=== PATIENT | male | born 1960 | race Caucasian/White ===

== ENCOUNTER 2024-06-22 17:01 | Inpatient (IN) | payer OTHER, SELFPAY ==
[2024-06-22] VITALS (9 sets, daily range): BP systolic 138–168; BP diastolic 70–120; BMI 31.1
--- NOTE | 2024-06-22 15:23 | HPS.HSE ---
Addendum entered and electronically signed by Santy Naylor MD 06/23/24 14:07:
See my update note.
Plavix washout,
Surgery Saturday with me
CABG x 4 + LAUREN Clip
Assess for radial use
Original Note:
Family Physician
<Lillian Cobb PA-C - Last Filed: 06/22/24 15:58>
-
Family Physician: NOT KNOW UNKNOWN - PT DOES
<RITA Edwards - Last Filed: 06/22/24 18:16>
-
Family Physician: Dr. Laura Bernal
Chief Complaint
<Lillian Cobb PA-C - Last Filed: 06/22/24 15:58>
-
New onset of left-sided chest pain/discomfort at rest, associated dyspnea on exertion, ruled in for NSTEMI
History of Present Illness
Of note patient's car dumper operator helper is Dr. Cooper Jiang [facility].
Patient is a 64-year-old male with past medical history significant for: Obstructive coronary artery disease complicated by myocardial infarction (1998) status post PCI with stent to the LAD, PCI with stent to the RCA in 1999, PCI with stent to the
OM in 2002, and PCI with FLAKO to the LAD/diagonal in 2018.
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
alcohol abuse, prior illicit street drug abuse (nasal crack cocaine, nasal meth, nasal speed), and history of cervical and lumbar laminectomy.
Patient began experiencing atypical left-sided chest pain at rest on , 06/18/2024 with associated dyspnea upon exertion. Chest pain resolved spontaneously however reoccurred over the weekend prompting the patient to seek medical care at [facility]'s emergency department. EKG upon presentation to the emergency department revealed sinus rhythm with first-degree AV block (75 bpm). Lab work revealed high-sensitivity troponins of 204 followed by 247 ruling the patient in for a
non-ST elevated myocardial infarction.
The patient was admitted and started on ACS protocol with heparin drip as well as a nitroglycerin drip. He was given aspirin as well as Plavix. Also of note, the patient takes Plavix chronically as an outpatient for history of drug-eluting stents.
The patient underwent subsequent cardiac catheterization at [facility] revealing multivessel coronary artery disease. Patient was transferred to [facility] for further evaluation, workup, and surgical intervention.
<RITA Edwards - Last Filed: 06/22/24 18:16>
History of Present Illness
Of note patient's car dumper operator helper is Dr. Cooper Jiang [facility].
Patient is a 64-year-old male with past medical history significant for: Obstructive coronary artery disease complicated by myocardial infarction (1998) status post PCI with stent to the LAD, PCI with stent to the RCA in 1999, PCI with stent to the
OM in 2002, and PCI with FLAKO to the LAD/diagonal in 2018.
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
alcohol abuse, prior illicit street drug abuse (methamphetamines), and history of cervical and lumbar laminectomy.
Patient began experiencing atypical left-sided chest pain at rest on , 06/18/2024 with associated dyspnea upon exertion. Chest pain resolved spontaneously however reoccurred over the weekend prompting the patient to seek medical care at [facility]'s emergency department. EKG upon presentation to the emergency department revealed sinus rhythm with first-degree AV block (75 bpm). Lab work revealed high-sensitivity troponins of 204 followed by 247 ruling the patient in for a
non-ST elevated myocardial infarction.
The patient was admitted and started on ACS protocol with heparin drip as well as a nitroglycerin drip. He was given aspirin as well as Plavix. Also of note, the patient takes Plavix chronically as an outpatient for history of drug-eluting stents.
The patient underwent subsequent cardiac catheterization at [facility] revealing multivessel coronary artery disease. Patient was transferred to [facility] for further evaluation, workup, and surgical intervention.
Medical History
<Lillian Cobb PA-C - Last Filed: 06/22/24 15:58>
Past Medical History
Past Medical History: Reports Other
Additional Past Medical History:
CAD s/p CA 1998
PCI w/ stent to LAD 1998
PCI with stent to RCA 1999
PCI with stent to OM 2002
PCI with FLAKO to LAD/Diag 2017
HTN/HLD
NIDDMII on metformin
Depression
Anxiety
BOWEN
Carcinoid tumor of the left lung s/p left lower lobectomy (benign tumor)
Former cigarette smoker
Prior alcohol abuse
Prior illicit street drug abuse (nasal crack cocaine, nasal mask, nasal speed)
History of cervical and lumbar laminectomy
Past Surgical History: Reports Other
Additional Past Surgical History:
Multiple cardiac catheterization with PCI and FLAKO as outlined above (1998, 1999, 2002, 2018)
Cervical and lumbar laminectomy with fusion
Left lower lobectomy (benign tumor)
Social History
Tobacco: Former Smoker (Quit smoking cigarettes 28 years ago)
Alcohol: Former (Quit abusing alcohol 12 years ago)
Drug: Former User ( Quit abusing street drugs 12 years ago (nasal crack cocaine, nasal mask, nasal speed))
Family History
Family History: Early CAD and CAD (Patient's father required surgical revascularization with CABG, patient's younger brother from fatal CA)
Allergies / Home Medications
Allergies reflects when Allergies were last updated in [facility].
Home Medications with original date entered in [facility]
Allergy/Medication List:
No known drug allergies
<RITA Edwards - Last Filed: 06/22/24 18:16>
Social History
Personal:
Living: With Family
Allergies / Home Medications
Allergies reflects when Allergies were last updated in [facility].
Home Medications with original date entered in [facility]
Cymbalta 60 mg daily
Carvedilol 6.25 mg every 12 hours
Pantoprazole 40 mg daily
Diltiazem HCl 300 mg daily
Clonazepam 1 mg 3 tablets daily
Metformin 500 mg twice daily
Clopidogrel 75 mg daily
Aspirin 81 mg
Gabapentin 100 mg nightly
Atorvastatin 80 mg daily
Losartan 100 mg daily
Zetia 10 mg daily
Allergy/Medication List:
No known drug allergies
Active Medications
Acetaminophen (Acetaminophen 325 Mg Tablet) 650 mg PO Q4HPRN PRN
PRN Reason: mild pain/CHAMBERLAIN/temp> 100.4F
Stop: 07/20/24 14:34
Aspirin (Aspirin 81 Mg Chewable Tablet) 81 mg PO DAILY ALEJANDRA
Stop: 07/21/24 07:59
Atorvastatin Calcium (Atorvastatin (Lipitor) 80 Mg Tablet) 80 mg PO QPM ALEJANDRA
Stop: 07/21/24 17:59
Bisacodyl (Bisacodyl 10 Mg Rectal Suppository) 10 mg RECTAL [id number] PRN
PRN Reason: constipation
Stop: 07/20/24 14:34
Carvedilol (Carvedilol 6.25 Mg Tablet) 6.25 mg PO BID ALEJANDRA
Stop: 07/21/24 07:59
Clonazepam (Clonazepam 1 Mg Tablet) 3 mg PO DAILY ALEJANDRA
Stop: 07/21/24 07:59
Dextrose (Dextrose 50% (0.5 Grams/Ml) 50 Ml Syringe) 12.5 grams IV [id number] PRN; Protocol
PRN Reason: hypoglycemia
Stop: 07/20/24 17:50
Duloxetine HCl (Duloxetine Delayed Release 60 Mg Capsule) 60 mg PO DAILY ALEJANDRA
Stop: 07/21/24 07:59
Ezetimibe (Ezetimibe (Zetia) 10 Mg Tablet) 10 mg PO DAILY ALEJANDRA
Stop: 07/21/24 07:59
Gabapentin (Gabapentin 100 Mg Capsule) 100 mg PO HS ALEJANDRA
Stop: 07/20/24 21:59
Glucagon (Glucagon 1 Mg Vial) 1 mg IM PRN PRN; Protocol
PRN Reason: hypoglycemia
Stop: 07/20/24 17:50
Nitroglycerin/Dextrose (Nitroglycerin Premix) 100 mg in 250 mls @ 0 mls/hr IV PER PROTOCOL ALEJANDRA; Protocol
Heparin Sodium (Heparin 33448 Units/250 Ml) 25,000 units in 250 mls @ 0 mls/hr IV PER PROTOCOL ALEJANDRA; Protocol
Insulin Aspart (Insulin Aspart Moderate Resistance 300 Units/3 Ml Pen.Injctr) 0 units SC AC ALEJANDRA; Protocol
Stop: 07/21/24 07:29
Losartan Potassium (Losartan 100 Mg Tablet) 100 mg PO DAILY ALEJANDRA
Stop: 07/21/24 07:59
Metformin HCl (Metformin 500 Mg Regular Release Tablet) 500 mg PO BID@0800,1700 ALEJANDRA
Stop: 07/21/24 07:59
Multivitamins Therapeutic (Multivitamin Tablet) 1 tablet PO DAILY ALEJANDRA
Stop: 07/21/24 07:59
Ondansetron HCl (Ondansetron 4 Mg/2 Ml Vial) 4 mg IV Q6HPRN PRN
PRN Reason: nausea and vomiting
Stop: 07/20/24 14:34
Pantoprazole Sodium (Pantoprazole 40 Mg Delayed Release Tablet) 40 mg PO DAILY ALEJANDRA
Stop: 07/21/24 07:59
Polyethylene Glycol (Polyethylene Glycol Powder 17 Grams Packet) 17 grams PO DAILYPRN PRN
PRN Reason: constipation
Stop: 07/20/24 14:34
Senna/Docusate Sodium (Docusate W/Senna (Ann-Colace) Tablet) 1 tablet PO BIDPRN PRN
PRN Reason: constipation
Stop: 07/20/24 14:34
Sodium Chloride (Sodium Chloride 0.9% (Flush) Syringe) 0 flush IV PER PROTOCOL ALEJANDRA
Stop: 07/20/24 17:59
Review of Systems
<RITA Edwards - Last Filed: 06/22/24 18:16>
-
History Source: Patient
A 12 point ROS was completed and negative except as noted: Yes
Cardiac: Reports Chest Pain
Physical Exam
<RITA Edwards - Last Filed: 06/22/24 18:16>
Physical Exam
General: Well Developed, Well Nourished, No Apparent Distress and Obese
HEENT: NormoCephalic
Respiratory: Clear
Cardiac: S1/S2 and Regular Rhythm
Breast: N/A
GI: Soft
Musculoskeletal: No Edema and Normal Gait & Station
Skin: Warm
Neuro: AO x 3
Hematologic/Lymphatic: No Lymphadenopathy
Psych: Calm and Anxious
Laboratory Results
<RITA Edwards - Last Filed: 06/22/24 18:16>
-
labs are pending
Impression/Plan
<Lillian Cobb PA-C - Last Filed: 06/22/24 15:58>
-
IMPRESSION:
64-year-old male with PMH of:
CAD s/p CA 1998
PCI w/ stent to LAD 1998
PCI with stent to RCA 1999
PCI with stent to OM 2002
PCI with FLAKO to LAD/Diag 2017
HTN/HLD
NIDDMII on metformin
Depression
Anxiety
BOWEN
Carcinoid tumor of the left lung s/p left lower lobectomy (benign tumor)
Former cigarette smoker
Prior alcohol abuse
Prior illicit street drug abuse (nasal crack cocaine, nasal mask, nasal speed)
History of cervical and lumbar laminectomy
Now with newly diagnosed:
Unstable angina
NSTEMI (BNP 29, peak high-sensitivity troponin 247)
Chronic Plavix use
Worsening/progressing obstructive coronary artery disease status post multiple PCI's with FLAKO
PLAN:
Patient was transferred to [facility] and will be admitted under the cardiothoracic surgery service.
Records will be reviewed and discussed with attending physician.
Patient will need to undergo Plavix washout.
Routine cardiothoracic preoperative workup will be initiated.
Further details regarding patient's course will be determined after attending physicians full evaluation.
<RITA Edwards - Last Filed: 06/22/24 18:16>
-
IMPRESSION:
64-year-old male with PMH of:
CAD s/p CA 1998
PCI w/ stent to LAD 1998
PCI with stent to RCA 1999
PCI with stent to OM 2002
PCI with FLAKO to LAD/Diag 2017
HTN/HLD
NIDDMII on metformin
Depression
Anxiety
BOWEN
Carcinoid tumor of the left lung s/p left lower lobectomy (benign tumor)
Former cigarette smoker
Prior alcohol abuse
Prior illicit street drug abuse (nasal crack cocaine, nasal mask, nasal speed)
History of cervical and lumbar laminectomy
Now with newly diagnosed:
Unstable angina
NSTEMI (BNP 29, peak high-sensitivity troponin 247)
Chronic Plavix use
Worsening/progressing obstructive coronary artery disease status post multiple PCI's with FLAKO
PLAN:
Patient was transferred to [facility] and will be admitted under the cardiothoracic surgery service.
Records will be reviewed and discussed with attending physician.
Patient will need to undergo Plavix washout (last dose 06/22)
Routine cardiothoracic preoperative workup will be initiated.
Cardiology consult
will start heparin gtt when TR band is off
Further details regarding patient's course will be determined after attending physicians full evaluation.
[2024-06-22] MEDS: COREG 6.25 MG PO (18:12)
[2024-06-22 18:28] LABS: Glucose - Point of Care 117 mg/dl (70-99)
[2024-06-22 18:35] LABS: % Basophils 0.5 % (0-2); % Eosinophils 0.6 % (0-6); % Immature Granulocytes 0.3 % (0-0.5); % Monocytes 9.3 % (1.7-9.3); % Neutrophils 76.3 % (42.2-75.2); Absolute Basophils 0.1 10^3/uL (0-0.2); Absolute Eosinophils 0.1 10^3/uL (0-0.7); Absolute Lymphocytes 1.7 10^3/uL (1.2-3.4); Absolute Monocytes 1.2 10^3/uL (0.1-0.6); Absolute Neutrophils 9.8 10^3/uL (1.4-6.5); Hematocrit 38.6 % (39.0-52.0); Hemoglobin 13.2 g/dL (13.0-18.0); Mean Corp Hgb Conc. 34.2 g/dL (33.0-37.0); Mean Corpuscular Hgb 29.6 pg (27.0-31.0); Mean Corpuscular Volume 86.5 fL (80.0-94.0); Mean Platelet Volume 10.6 fL (7.4-10.4); Nucleated Red Blood Cells % 0 % (-); Platelet Count 201 10^3/uL (130-400); Red Blood Cell Count 4.46 10^6/uL (4.70-6.10); Red Cell Dist. Width 12.5 % (11.5-14.5); White Blood Cell Count 12.9 10^3/uL (4.8-10.8)
[2024-06-22 18:56] LABS: ALT (SGPT) 39 U/L (0-50); AST (SGOT) 39 U/L (17-59); Albumin 4.5 g/dl (3.5-5.0); Alkaline Phosphatase 147 U/L (38-126); Blood Urea Nitrogen 15 mg/dl (9-20); Calcium 9.2 mg/dl (8.4-10.2); Carbon Dioxide 23 mmol/L (22-30); Chloride 98 mmol/L (98-107); Estimated Creatinine Clearance > 125 ml/min; Glucose 116 mg/dl (70-99); HDL Cholesterol 46 mg/dl; Iron 65 ug/dl (49-181); LDL Cholesterol, Calculated 61 mg/dl; Magnesium 1.9 mg/dl (1.6-2.3); Sodium 133 mmol/L (135-145); Total Bilirubin 1.1 mg/dl (0.2-1.3); Total Cholesterol 127 mg/dl (50-199); Total Protein 6.9 g/dl (6.3-8.2); Triglyceride 103 mg/dl (10-149); Very Low Density Lipoprotein 20 mg/dl (0-30); eGFR > 60.00
--- NOTE | 2024-06-22 19:21 | PTCARENOTE ---
Received patient as transfer from [facility] at 1700 after cardiac cath today revealed MVD, here for CABG eval. Patient denies any chest pain or sob. Radial band intact right wrist, total of 5ml of air removed by nurse at [facility]. Strong radial pulse palpated,
pulse ox 95% on RA, SR on the monitor. IV NTG infusing LAC at 30mcg/min, placed on pump. Patient hypertensive upon admission and given PO dose of coreg as ordered. Oriented to room and plan of care, admission assessment completed. Labs drawn, to
restart IV heparin drip tonight when radial band removed. Call anglin in reach.
[2024-06-22 19:25] LABS: APTT 29.1 Sec (23.4-35.0)
[2024-06-22] MEDS: TYLENOL 650 MG PO (19:47)
[2024-06-22 20:16] LABS: Urine Albumin 1+ (Neg - Trace); Urine Bilirubin Negative (Negative); Urine Character Clear (Clear); Urine Color Yellow; Urine Glucose Negative (Negative); Urine Ketone 2+ (Negative); Urine Leukocyte Negative (Negative); Urine Nitrite Negative (Negative); Urine Occult Blood Negative (Negative); Urine Urobilinogen Negative (Neg - 1+)
[2024-06-22 20:29] LABS: Amphetamines Negative (Negative); Barbiturates Negative (Negative); Benzodiazepines Negative (Negative); Buprenorphine Negative (Negative); Cocaine Negative (Negative); Marijuana Negative (Negative); Methadone Negative (Negative); Methamphetamines Negative (Negative); Opiates Negative (Negative); Phencyclidine Negative (Negative); Tricyclic Antidepressants Negative (Negative)
[2024-06-22 20:48] LABS: Urine Bacteria Few (Negative); Urine Red Blood Cell 0-2 /HPF (0-2); Urine Squamous Cell 0-2 /LPF (Few); Urine White Cell 0-2 /HPF (0-5)
[2024-06-22] MEDS: HEPARIN 25000 UNITS/250 ML IV (21:08)
[2024-06-22] MEDS: NEURONTIN 100 MG PO (21:44)
[2024-06-22 21:46] LABS: Glucose - Point of Care 118 mg/dl (70-99)
--- NOTE | 2024-06-22 23:00 | PTCARENOTE ---
Patient received at change of shift resting in the bed. Nitroglycerin gtt infusing at 30mcg/min, patient reported being chest pain free so the gtt was titrated down to 25mcg/min. Discussed with patient reporting chest pain or pressure immediately.
Heparin gtt initiated at 1000units/hr. Discussed purpose of heparin and drawing PTT's. The patient did report a 7 out of 10 headache, PRN acetaminophen was administered (see MAR) with improvement in pain level. Right wrist TR band removed without
incident, gauze and tegaderm applied and remains C/D/I. Surrounding area soft to palpation. Bilateral radial pulses +2 to palpation. U/A collected and sent. Patient remains sinus rhythm on the monitor with a first degree AV block. Plan of care
discussed with patient. Call anglin within reach. Care ongoing.
[2024-06-23] VITALS (12 sets, daily range): BP systolic 122–176; BP diastolic 72–100; BMI 31.0
[2024-06-23] MEDS: TYLENOL 650 MG PO ×2 (03:10→07:42)
[2024-06-23 03:32] LABS: Hematocrit 37.2 % (39.0-52.0); Hemoglobin 12.8 g/dL (13.0-18.0); Mean Corp Hgb Conc. 34.4 g/dL (33.0-37.0); Mean Corpuscular Hgb 29.9 pg (27.0-31.0); Mean Corpuscular Volume 86.9 fL (80.0-94.0); Mean Platelet Volume 10.5 fL (7.4-10.4); Platelet Count 191 10^3/uL (130-400); Red Blood Cell Count 4.28 10^6/uL (4.70-6.10); Red Cell Dist. Width 12.6 % (11.5-14.5); White Blood Cell Count 11.5 10^3/uL (4.8-10.8)
[2024-06-23 03:47] LABS: INR 1.12; PT 14.7 Sec (11.4-14.6)
[2024-06-23 03:48] LABS: APTT 36.9 Sec (23.4-35.0)
[2024-06-23 03:59] LABS: Blood Urea Nitrogen 14 mg/dl (9-20); Calcium 9.1 mg/dl (8.4-10.2); Carbon Dioxide 24 mmol/L (22-30); Chloride 100 mmol/L (98-107); Estimated Creatinine Clearance > 125 ml/min; Glucose 122 mg/dl (70-99); Sodium 134 mmol/L (135-145); eGFR > 60.00
[2024-06-23] MEDS: PROTONIX 40 MG PO (07:40)
[2024-06-23] MEDS: CYMBALTA DELAYED RELEASE 60 MG PO (07:41)
[2024-06-23] MEDS: ZETIA 10 MG PO (07:41)
[2024-06-23] MEDS: LOW STRENGTH ASPIRIN 81 MG PO (07:41)
[2024-06-23] MEDS: COZAAR 100 MG PO (07:41)
[2024-06-23] MEDS: COREG 6.25 MG PO ×2 (07:42→10:13)
[2024-06-23] MEDS: FLUSH (NSS) 2 FLUSH IV (07:42)
[2024-06-23 07:57] LABS: Glucose - Point of Care 111 mg/dl (70-99)
--- NOTE | 2024-06-23 08:57 | CON.CAR ---
Addendum entered and electronically signed by Alejandro Garcia MD 06/23/24 11:58:
I saw and examined the patient.
The MILD DISABILITIES TEACHER's note was reviewed and I agree with the note.
Comment: 64-year-old male (known to Dr. Cooper Jiang, his primary storm window installer), with coronary artery disease (prior PCI to LAD 1998, RCA 2000, OM 2002, diagonal 2017) hypertension, hyperlipidemia, type 2 diabetes mellitus not requiring insulin,
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
- CP free CABG eval
Original Note:
Consultation
Consultation Request
Date/Time Consultation Requested: 06/22/2024 17:30
Date/Time Consultation Performed: 06/23/2024 09:00
Requesting Provider: RITA Edwards
Performing Provider: RITA Mai for Dr. Garcia
Reason for Consultation: Coronary artery disease
Medical History
-
Chief Complaint: Left-sided chest pain at rest
History of Present Illness:
Anand Voss is a 64-year-old male (known to Dr. Cooper Jiang, his primary storm window installer), with coronary artery disease (prior PCI to LAD 1998, RCA 2000, OM 2002, diagonal 2017) hypertension, hyperlipidemia, type 2 diabetes mellitus not requiring
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 The
chest pain would resolve spontaneously but kept recurring throughout the weekend. He presented to [facility] emergency department. He ruled in for an NSTEMI. He was started on ACS protocol. He was given aspirin and clopidogrel (he was on this
prior to admission). Cardiac catheterization demonstrated multivessel coronary artery disease. He was transferred to [facility] for CABG evaluation. He is currently free of chest pain, shortness of breath, and dizziness
Past Medical History
Past Medical History: CAD, HTN, Hypercholesterolemia, NIDDM, Psychiatric (Anxiety, depression) and Other (BOWEN, carcinoid tumor of the left lung status post left lower lobectomy)
Past Surgical History: Orthopedic and Other (Left lower lobe lobectomy [benign tumor])
Social History
Tobacco: Former Smoker
Alcohol: Former (Sobriety from EtOH and illegal drugs since 2012.)
Drug: Former User (Sobriety from EtOH and illegal drugs since 2012.)
Personal:
Living: With Family
Family History
Family History: Early CAD and CAD
Allergies / Home Medications
Allergy/AdvReac Type Severity Reaction Status Date / Time
No Known Allergies Allergy Unverified 06/22/24 17:47
�Medication �Instructions �Recorded �Confirmed �Type
ascorbic acid (vitamin C) 500 mg 500 mg PO BID 06/22/24 06/22/24 History
tablet (Vitamin C)
aspirin 81 mg tablet 81 mg PO DAILY 06/22/24 06/22/24 History
atorvastatin 80 mg tablet 80 mg PO DAILY 06/22/24 06/22/24 History
carvedilol 6.25 mg tablet 6.25 mg PO Q12H 06/22/24 06/22/24 History
cholecalciferol (vitamin D3) 50 50 mcg PO DAILY 06/22/24 06/22/24 History
mcg (2,000 unit) capsule (Vitamin
D3)
clonazepam 1 mg tablet 3 mg PO DAILY 06/22/24 06/22/24 History
clopidogrel 75 mg tablet 75 mg PO DAILY 06/22/24 06/22/24 History
diltiazem HCl 300 mg 300 mg PO DAILY 06/22/24 06/22/24 History
tablet,extended release 24 hr
duloxetine 60 mg capsule,delayed 60 mg PO DAILY 06/22/24 06/22/24 History
release (Cymbalta)
ezetimibe 10 mg tablet (Zetia) 10 mg PO DAILY 06/22/24 06/22/24 History
gabapentin 100 mg capsule 100 mg PO HS 06/22/24 06/22/24 History
losartan 100 mg tablet 100 mg PO DAILY 06/22/24 06/22/24 History
metformin 500 mg tablet 500 mg PO BID 06/22/24 06/22/24 History
multivitamin 1 tab PO DAILY 06/22/24 06/22/24 History
pantoprazole 40 mg tablet,delayed 40 mg PO DAILY 06/22/24 06/22/24 History
release
semaglutide 1 mg/dose (2 mg/1.5 1 mg SC QWEEK 06/22/24 06/22/24 History
mL) subcutaneous pen injector
turmeric See Rx Instructions .Route .COMPLEX 06/22/24 06/22/24 History
Review of Systems
-
History Source: Patient
All other systems: Negative unless noted
Constitutional: No Symptoms
EENT: No Symptoms
Respiratory: No Symptoms
Cardiac: No Symptoms
Abdomen/GI: No Symptoms
: No Symptoms
Musculoskeletal: No Symptoms
Skin: No Symptoms
Neurological: No Symptoms
Endocrine: No Symptoms
Hematologic/Lymphatic: No Symptoms
Physical Exam
Vital Signs
Temp Pulse Resp BP Pulse Ox
98.0 F 92 18 170/87 94
06/23/24 06:48 06/23/24 07:00 06/23/24 06:48 06/23/24 06:52 06/23/24 06:48
Lab Results
06/23/24 03:20
06/23/24 03:20
Physical Exam
General: Well Developed, Well Nourished and No Apparent Distress
HEENT: Normocephalic, Anicteric and Moist Mucous Membranes
Respiratory: Clear and Non Labored Respirations
Cardiac: S1/S2 and Regular Rhythm; Negative Peripheral Edema
Breast: Deferred by me
GI: Soft, Non Tender, Non Distended and Normal Bowel Sounds
Rectal: Deferred by Provider
Genito-urinary: No Costovertebral Tender
Musculoskeletal: No Clubbing, No Cyanosis and No Edema
Skin: Warm and Dry
Neuro: AO x 3
Hematologic/Lymphatic: No Lymphadenopathy
Psych: Calm
Impression / Plan
-
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
illegal drug use who developed left-sided chest pain at rest 06/18/2024 with associated DELGADILLO -> LHC at [facility] showed MVCAD. Transferred to for CABG eval.
Primary storm window installer: Dr. Jiang ([facility])
CAD
-Chest pain-free on NTG gtt
-Prior PCI to LAD 1998, RCA 1999, OM 2002, diagonal 2017 -> Now with multivessel disease
-EKG sinus rhythm with first-degree AV block
-He was on aspirin and clopidogrel prior to admission at [facility], last dose of clopidogrel 06/22/2024, clopidogrel on hold, continue aspirin/heparin gtt
-CABG evaluation per surgery
Hypertension
-BP above goal since admission, increase carvedilol to 12.5 mg BID
-On diltiazem, carvedilol, and losartan
-Medical therapy may again need to be escalated when losartan is placed on hold prior to CABG
NIDDM, with hyperglycemia, not requiring insulin, HgbA1c pending
HLD
-On atorvastatin 80 mg with Zetia, LDL 61, ideally should be under 55
-Switch atorvastatin 80 to rosuvastatin 40mg
BOWEN, LFTs and INR stable
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
Prior tobacco abuse
Prior EtOH abuse, sobriety for approximately 12 years
Prior illegal drug use, sobriety for approximately 12 years
Data Reviewed
-
EKG: Report Reviewed by me
Labs: Labs Reviewed by me
Old Records: Reviewed
[2024-06-23 09:22] LABS: Glycohemoglobin (HgbA1c) 6.1 % (4.0-5.6)
--- NOTE | 2024-06-23 10:34 | PTCARENOTE ---
The patient is aaox3, vital signs are stable. NSR with a 1st degree AVB is noted on the monitor. His heparin gtt is running at 1200 units/hr. Nitroglycerin gtt is running at 3ml/hr. His right wrist dressing is c/d/i. He does complaint of a headache
and rates it a 3/10 on scale. Tylenol given as ordered. Updated him on his plan of care and expected pre-op testing.
[2024-06-23 11:07] LABS: APTT 38.6 Sec (23.4-35.0)
[2024-06-23 12:16] LABS: Glucose - Point of Care 104 mg/dl (70-99)
--- NOTE | 2024-06-23 13:08 | W.PN.UPDATE ---
Update Note
Progress Note Update
I met with Mr. Voss at the [facility] and reviewed his pathology/lhc. We discussed his history and how he presented. He is ruled in for NSTEMI and has a significant PMH for CAD and prior PCI - you can see multiple stents to the LAD and proximal RCA. I
reviewed his CT and LHC. To my eye, I believe he has surgical targets for SEVILLA-LAD, L-Radial to Ramus Seq to OM, RSVG-RPDA. Given his elevated Chadsvasc score, I will manage his LAUREN at time of surgery as well. He has a prior thoracotomy for LLL
resection for a carcinoid tumor. 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 He is also a chronic plavix user, and so we will give him 7 days from last dose to
washout plavix. Plan for OR with me on Saturday for CABG x 4 + LAUREN Clip.
The risks of benefits of surgery were reviewed. I answered all questions to the best of my ability. He tells me he has no further questions. His friend who was present also was clear and had no questions.
Thank you for involving me in the care of this patient. Please feel free to contact me with any questions or concerns.
Santy Naylor MD, MS
Cardiothoracic Surgeon
[facility]
This dictation was created using the [employer] dictation system. Please excuse any grammatical, typographical, or 'sound alike' errors.
[2024-06-23] MEDS: NITROGLYCERIN PREMIX 250 IV (13:22)
--- NOTE | 2024-06-23 16:07 | CM ---
spoke to pt in room, he is prev indep, lives with his in a 2 story home with 1 step to enter. he denies any dme's.plan is for CABG next tu (plavix washout). cm to do preop teaching thurs when is present.
[2024-06-23] MEDS: CRESTOR 40 MG PO ×2 (17:24→17:26)
[2024-06-23] MEDS: HEPARIN 25000 UNITS/250 ML IV (17:25)
[2024-06-23 17:46] LABS: APTT 51.2 Sec (23.4-35.0)
[2024-06-23 17:59] LABS: Glucose - Point of Care 123 mg/dl (70-99)
--- NOTE | 2024-06-23 20:07 | PTCARENOTE ---
Assumed care of pt from prev nsg shift; pt AAOx3 w/no c/o CP or SOB. Pt w/IV Heparin drip & IV Nitro drip infusing through patent L AC IV as ordered. Pt's VSS w/HR in the 80's-90's & BP 160/96. Pt's BP has been elevated since admission, MDs aware, &
medication changes were made today-see JUL. Pt w/R radial site w/dressing C/D/I w/no signs or symptoms of bleeding or hematoma. Pt w/call anglin within reach & no addtl needs at this time.
[2024-06-23] MEDS: NEURONTIN 100 MG PO (20:40)
[2024-06-23] MEDS: KLONOPIN 3 MG PO (20:40)
[2024-06-23] MEDS: COREG 12.5 MG PO (20:40)
[2024-06-23 21:58] LABS: Glucose - Point of Care 111 mg/dl (70-99)
--- NOTE | 2024-06-24 00:59 | W.PN.CT ---
Today's Communication / Plan
-
Plan:
-Ongoing preop workup
-Cont. current meds (ASA, heparin gtt, NTG gtt, Crestor, Zetia, Cozaar)
-No KEYUR-I/ARBs 48hrs prior to OR, will d/c Cozaar 2 days before surgery
-Plavix washout, last dose 06/22
-Will d/c Heparin and NTG gtt merchandising consultant to OR
-For CABG/LAUREN Clip by Dr. Naylor Saturday06/30/24
Assessment / Plan
-
Assessment:
64 y/o male, transferred from [facility] for CABG evaluation
-Multivessel CAD
-NSTEMI
-Plavix washout, last dose 06/22
-CAD s/p SD 1998
-PCI w/ stent to LAD 1998
-S/P PCI with stent to RCA 1999
-S/P PCI with stent to OM 2002
-S/P PCI with FLAKO to LAD/Diag 2017
-HTN/HLD
-NIDDMII on metformin
-Depression
-Anxiety
-BOWEN
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
-Former cigarette smoker (quit abusing street drugs 12 years ago
-Former illicit drug use (nasal crack cocaine, nasal mask, nasal speed)
-Prior alcohol abuse
-History of cervical and lumbar laminectomy
-S/p Cervical and lumbar laminectomy and fusion
-S/P Left lower lobectomy (benign tumor)
Discussed patient care with: Cardiology, Nursing, Respiratory Therapy, Pharmacy and Care Team
Subjective
-
Date of Service: June 24, 2024
No issues overnight. Denies CP/SOB
Objective Data
-
Lab Results
06/23/24 03:20
PT 14.7 Sec (11.4-14.6) H 06/23/24 03:20
INR 1.12 06/23/24 03:20
APTT 51.2 Sec (23.4-35.0) H 06/23/24 17:21
Vital Signs
Vital Signs
Temp Pulse Resp BP Pulse Ox
98.2 F 80 20 176/91 100
06/23/24 22:41 06/24/24 00:00 06/23/24 22:41 06/23/24 21:55 06/23/24 22:41
CT Intake/Output/Weight
06/23/24 06/23/24 06/24/24
06:59 18:59 06:59
Intake Total 1122 / 1122 480 / 960 480 / 960
Output Total 300 / 300
Balance 822 / 822 480 / 960 480 / 960
SaO2: 100 (RA)
Physical Exam
-
General: Awake, Oriented and AOx3
Cardiovascular: No Murmurs
Respiratory: Clear
Extremities: No Edema
Data Reviewed
-
Lab Results: Results Reviewed
Medications: Active Meds Reviewed
Chest X-Ray: Report Reviewed and Image Reviewed
ECG: Report Reviewed and Image Reviewed
[2024-06-24 02:29] LABS: APTT 46.2 Sec (23.4-35.0)
--- NOTE | 2024-06-24 02:39 | DOWNTIME ---
There was a [employer] Downtime on 06/24/2024 from 0100 to 06/24/2023 at 0235 . Downtime documentation of patient's care, including medication administrations, has been reconciled in the electronic record per guidelines. Refer to the
patient's paper chart under the miscellaneous tab to see printed paper medication records and downtime forms.
[2024-06-24 05:18] VITALS: BP 124/83
[2024-06-24 06:00] VITALS: BMI 30.4
[2024-06-24 06:48] VITALS: BP 126/78
[2024-06-24] MEDS: FLUSH (NSS) 2 FLUSH IV (07:40)
[2024-06-24] MEDS: COREG 12.5 MG PO ×2 (07:41→19:58)
[2024-06-24] MEDS: COZAAR 100 MG PO (07:41)
[2024-06-24] MEDS: LOW STRENGTH ASPIRIN 81 MG PO (07:41)
[2024-06-24] MEDS: PROTONIX 40 MG PO (07:41)
[2024-06-24] MEDS: CYMBALTA DELAYED RELEASE 60 MG PO (07:41)
[2024-06-24] MEDS: ZETIA 10 MG PO (07:41)
[2024-06-24 08:06] LABS: Glucose - Point of Care 103 mg/dl (70-99)
--- NOTE | 2024-06-24 08:08 | PTCARENOTE ---
Patient is aaox3, vital signs are stable. NSR with a 1st degree AVB is noted on the monitor. Right wrist is open to air. He has no complaints of pain, sob, or discomfort. heparin gtt is running at 1800 units/hr. Nitro gtt is running at 3ml/hr.
[2024-06-24 08:09] LABS: Hematocrit 40.1 % (39.0-52.0); Hemoglobin 13.7 g/dL (13.0-18.0); Mean Corp Hgb Conc. 34.2 g/dL (33.0-37.0); Mean Corpuscular Hgb 29.5 pg (27.0-31.0); Mean Corpuscular Volume 86.4 fL (80.0-94.0); Mean Platelet Volume 10.4 fL (7.4-10.4); Platelet Count 193 10^3/uL (130-400); Red Blood Cell Count 4.64 10^6/uL (4.70-6.10); Red Cell Dist. Width 12.6 % (11.5-14.5); White Blood Cell Count 10.9 10^3/uL (4.8-10.8)
[2024-06-24 08:27] LABS: APTT 84.4 Sec (23.4-35.0)
[2024-06-24] MEDS: HEPARIN 25000 UNITS/250 ML IV ×2 (09:43→22:23)
[2024-06-24 11:41] VITALS: BP 136/78
--- NOTE | 2024-06-24 12:14 | CM ---
CM following for DC planning needs.
Met w/ patient at bedside.
Reviewed initial assessment. Pt. comes from 2 story home w/ spouse. He is functionally indep. at baseline w/ ADLs, mobility without the use of any assisted device.
Pt. reports that spouse will come to hospital on 06/25. Will plan to meet w/ patient and spouse at that time to complete pre-op teaching.
Plan for CT Surgery, 06/30.
CM to follow.
[2024-06-24 12:59] LABS: Glucose - Point of Care 118 mg/dl (70-99)
[2024-06-24] MEDS: TYLENOL 650 MG PO (14:36)
[2024-06-24 15:42] VITALS: BP 149/91
--- NOTE | 2024-06-24 16:28 | W.PN.CD ---
Today's Communication / Plan
-
Continue current therapy
For CABG
Monitor BP with recent increase in dose for more HTN control
Impression / Plan
-
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
disorder who developed left-sided chest pain at rest 06/18/2024 with associated DELGADILLO -> LHC at [facility] showed MVCAD. Transferred to for CABG eval.
Primary fire watcher: Dr. Jiang ([facility])
CAD, Plavix washout, last dose of clopidogrel 06/22/2024, clopidogrel on hold, continue aspirin/heparin gtt
-CABG evaluation per surgery
First degree AV block
Hypertension
-BP above goal since admission, carvedilol was just increased to 12.5 mg BID
-On diltiazem, carvedilol, and losartan
-Medical therapy may again need to be escalated when losartan is placed on hold prior to CABG
NIDDM, with hyperglycemia, not requiring insulin, HgbA1c pending
HLD
-On atorvastatin 80 mg with Zetia, LDL 61, ideally should be under 55
-Switch atorvastatin 80 to rosuvastatin 40mg
BOWEN, LFTs and INR stable
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
Prior tobacco abuse
ETOH abuse, in recovery for 12 years
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
Subjective:
No CP or dyspnea.
Physical Exam
Vital Signs/Labs
Vital Signs
Temp Pulse Resp BP Pulse Ox
97.8 F 79 20 136/78 95
06/24/24 15:43 06/24/24 11:41 06/24/24 15:43 06/24/24 11:41 06/24/24 15:43
02/06/24/24 06/25/24
06:59 06:59 06:59
Actual Weight 97.9 kg 96.2 kg
06/24/24 07:57
06/23/24 03:20
PT 14.7 Sec (11.4-14.6) H 06/23/24 03:20
INR 1.12 06/23/24 03:20
APTT 84.4 Sec (23.4-35.0) H 06/24/24 07:57
Magnesium 1.9 mg/dl (1.6-2.3) 06/22/24 18:21
Triglycerides 103 mg/dl (10-149) 06/22/24 18:21
LDL Cholesterol, Calc 61 mg/dl 06/22/24 18:21
VLDL Cholesterol, Calc 20 mg/dl (0-30) 06/22/24 18:21
HDL Cholesterol 46 mg/dl 06/22/24 18:21
Physical Exam
Constitutional: No acute distress
Cardiovascular: Rhythm & rate is regular and Pedal edema is absent
Respiratory: Respiratory effort normal and Lungs clear to auscul.
GI: Soft and Distention absent
Neuro/Psych: Alert
Data Reviewed
-
Date of Service: June 24, 2024
--- NOTE | 2024-06-24 16:48 | W.PN.UPDATE ---
Update Note
Progress Note Update
STS RISK SCORE
Procedure Type:�Isolated CABG
Perioperative Outcome Estimate %
Operative Mortality 1.05%
Morbidity & Mortality 5.38%
Stroke 0.955%
Renal Failure 0.773%
Reoperation 1.59%
Prolonged Ventilation 3.01%
Deep Sternal Wound Infection 0.227%
Long Hospital Stay (>14 days) 3.04%
Short Hospital Stay (<6 days)* 55.5%
Clinical Summary
Planned Surgery: Isolated CABG, Urgent, First cardiovascular surgery
Demographics: 64 year old, White, male, 98.3kg, 178cm, BMI: 31 kg/m�
Lab Values: Creatinine: 0.6 mg/dL, Hematocrit: 37.2%, WBC Count: 11.5 10�/�L, Platelet Count: 171666 cells/�L
PreOp Medications: Oral diabetes control
Risk Factors / Comorbidities: Diabetes Mellitus , Hypertension, Family Hx of CAD
Pulmonary RF: Moderate CLD
Cardiac Status: NYHA Class III, Ejection Fraction = 63%
Coronary Artery Disease: 3 vessels diseased, Proximal LAD Stenosis >=70%, Non-ST Elevation AZ, AZ: 8 to 21 Days
Valve Disease: Mild MR, Mild TR
Prev. Cardiac Interv: Previous PCI: Not during this episode of care
[2024-06-24 16:57] LABS: Glucose - Point of Care 106 mg/dl (70-99)
[2024-06-24 17:17] LABS: APTT 94.5 Sec (23.4-35.0)
[2024-06-24 18:30] VITALS: BP 141/98
[2024-06-24 22:19] LABS: Glucose - Point of Care 112 mg/dl (70-99)
[2024-06-24 22:21] VITALS: BP 162/90
[2024-06-24] MEDS: NEURONTIN 100 MG PO (22:22)
[2024-06-24] MEDS: KLONOPIN 3 MG PO (22:23)
--- NOTE | 2024-06-24 23:19 | PTCARENOTE ---
Received patient at change of shift. SR on the monitor, HR in the 80s. Heparin and nitrogen running as per protocol. Pt reports no chest pain. R radial DAMION and intact. Pt requested PRN Klonopin, administered as per JUL. No complaints from pt at this
time, call anglin within reach.
[2024-06-25 03:06] VITALS: BP 163/93
[2024-06-25 03:20] VITALS: BMI 30.4
--- NOTE | 2024-06-25 05:26 | W.PN.CT ---
Today's Communication / Plan
-
-Ongoing preop workup
-Cont. current meds (ASA, heparin gtt, NTG gtt, Crestor, Zetia, Cozaar)
-No KEYUR-I/ARBs 48hrs prior to OR, will d/c Cozaar 2 days before surgery
-Plavix washout, last dose 06/22
-Will d/c Heparin and NTG gtt powder monkey to OR
-For CABG/LAUREN Clip by Dr. Naylor Saturday06/30/24
Assessment / Plan
-
Assessment:
64 y/o male, transferred from [facility] for CABG evaluation
-Multivessel CAD
-NSTEMI
-Plavix washout, last dose 06/22
-CAD s/p [place] 1998
-PCI w/ stent to LAD 1998
-S/P PCI with stent to RCA 1999
-S/P PCI with stent to OM 2002
-S/P PCI with FLAKO to LAD/Diag 2017
-HTN/HLD
-NIDDMII on metformin
-Depression
-Anxiety
-BOWEN
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
-Former cigarette smoker (quit abusing street drugs 12 years ago
-Former illicit drug use (nasal crack cocaine, nasal mask, nasal speed)
-Prior alcohol abuse
-History of cervical and lumbar laminectomy
-S/p Cervical and lumbar laminectomy and fusion
-S/P Left lower lobectomy (benign tumor)
Subjective
-
Date of Service: June 25, 2024
Objective Data
-
Lab Results
06/24/24 07:57
06/23/24 03:20
PT 14.7 Sec (11.4-14.6) H 06/23/24 03:20
INR 1.12 06/23/24 03:20
APTT 94.5 Sec (23.4-35.0) H 06/24/24 16:49
Vital Signs
Vital Signs
Temp Pulse Resp BP Pulse Ox
98.2 F 87 18 163/93 98
06/25/24 03:19 06/25/24 03:06 06/25/24 03:19 06/25/24 03:06 06/25/24 03:19
CT Intake/Output/Weight
06/24/24 06/24/24 06/25/24
06:59 18:59 06:59
Intake Total 480 / 960
Balance 480 / 960
SaO2: 98
Physical Exam
-
General: AOx3
Cardiovascular: Regular rate & rhythm
Respiratory: Clear
[2024-06-25 06:16] LABS: APTT 112.5 Sec (23.4-35.0)
[2024-06-25 06:52] VITALS: BP 155/83
[2024-06-25] MEDS: TYLENOL 650 MG PO (07:11)
[2024-06-25 07:49] LABS: Glucose - Point of Care 94 mg/dl (70-99)
[2024-06-25] MEDS: COREG 12.5 MG PO ×2 (08:06→19:34)
[2024-06-25] MEDS: COZAAR 100 MG PO (08:06)
[2024-06-25] MEDS: LOW STRENGTH ASPIRIN 81 MG PO (08:07)
[2024-06-25] MEDS: CYMBALTA DELAYED RELEASE 60 MG PO (08:07)
[2024-06-25] MEDS: PROTONIX 40 MG PO (08:08)
[2024-06-25] MEDS: ZETIA 10 MG PO (08:08)
[2024-06-25 12:23] LABS: Glucose - Point of Care 98 mg/dl (70-99)
[2024-06-25] MEDS: HEPARIN 25000 UNITS/250 ML IV (12:52)
[2024-06-25] MEDS: MIRALAX 17 GRAMS PO (13:24)
[2024-06-25] MEDS: SENOKOT-S 1 TABLET PO (13:25)
[2024-06-25 13:26] LABS: APTT 66.6 Sec (23.4-35.0)
--- NOTE | 2024-06-25 14:16 | W.PN.CD ---
Today's Communication / Plan
-
CABG Saturday
Cont meds
Impression / Plan
-
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
disorder who developed left-sided chest pain at rest 06/18/2024 with associated DELGADILLO -> LHC at [facility] showed MVCAD. Transferred to for CABG eval.
Primary cancer registrar: Dr. Jiang ([facility])
CAD, Plavix washout, last dose of clopidogrel 06/22/2024, clopidogrel on hold, continue aspirin/heparin gtt
-CABG evaluation per surgery
First degree AV block
Hypertension
-BP above goal since admission, carvedilol was just increased to 12.5 mg BID, will increase to 25 bid if still elevated
-On diltiazem, carvedilol, and losartan
-Medical therapy may again need to be escalated when losartan is placed on hold prior to CABG
NIDDM, with hyperglycemia, not requiring insulin, HgbA1c pending
HLD
-On atorvastatin 80 mg with Zetia, LDL 61, ideally should be under 55
-Switch atorvastatin 80 to rosuvastatin 40mg
BOWEN, LFTs and INR stable
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
Prior tobacco abuse
ETOH abuse, in recovery for 12 years
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
Subjective:
No CP or dyspnea.
Physical Exam
Vital Signs/Labs
Vital Signs
Temp Pulse Resp BP Pulse Ox
97.7 F 81 20 155/83 95
06/25/24 06:52 06/25/24 08:06 06/25/24 06:52 06/25/24 08:06 06/25/24 06:52
06/24/24 06/25/24 06/26/24
06:59 06:59 06:59
Actual Weight 212 lb 1.355 oz 211 lb 10.3 oz
06/24/24 07:57
06/23/24 03:20
PT 14.7 Sec (11.4-14.6) H 06/23/24 03:20
INR 1.12 06/23/24 03:20
APTT 66.6 Sec (23.4-35.0) H 06/25/24 12:20
Magnesium 1.9 mg/dl (1.6-2.3) 06/22/24 18:21
Triglycerides 103 mg/dl (10-149) 06/22/24 18:21
LDL Cholesterol, Calc 61 mg/dl 06/22/24 18:21
VLDL Cholesterol, Calc 20 mg/dl (0-30) 06/22/24 18:21
HDL Cholesterol 46 mg/dl 06/22/24 18:21
Physical Exam
Constitutional: No acute distress
EENT: Anicteric
Cardiovascular: Rhythm & rate is regular and Pedal edema is absent
Respiratory: Respiratory effort normal and Lungs clear to auscul.
GI: Soft
Neuro/Psych: AO x 3
Data Reviewed
-
Date of Service: June 25, 2024
Medical Decision Making: Reviewed Test Results
EKG: Tracing Personally Visualized and interpreted (sr)
Echo: Report Reviewed by me
Labs: Labs Reviewed by me
--- NOTE | 2024-06-25 14:38 | PTCARENOTE ---
Pt c/o constipation today, no BM for 4 days. Pt given senna tab and Miralax, as ordered.
[2024-06-25 14:59] VITALS: BP 136/79
--- NOTE | 2024-06-25 16:24 | CM ---
CM following for DC planning needs.
Met w/ patient at bedside to complete pre-op teaching. Spouse was not present at bedside.
Reviewed pre and post op routines.
Discussed post op restrictions to include lifting, driving, flying and sternal precautions.
Reviewed post op MD appointments, Cardiac Rehab and visit from CT Transitional Care RN/ pt. agreeable to this.
Plan is for CT Surg., 06/30.
Antic. DC plan is for home w/ CT Transitional Care RN.
Will cont. to follow.
[2024-06-25 17:19] LABS: Glucose - Point of Care 109 mg/dl (70-99)
[2024-06-25] MEDS: CRESTOR 40 MG PO (18:11)
[2024-06-25 19:22] LABS: APTT 70.3 Sec (23.4-35.0)
[2024-06-25 19:30] VITALS: BP 148/80
[2024-06-25 21:24] LABS: Glucose - Point of Care 122 mg/dl (70-99)
[2024-06-25] MEDS: KLONOPIN 3 MG PO (22:32)
[2024-06-25] MEDS: NEURONTIN 100 MG PO (22:32)
[2024-06-25 22:33] VITALS: BP 153/97
--- NOTE | 2024-06-25 23:17 | PTCARENOTE ---
Received patient at change of shift. SR on the monitor with a first degree, HR in the 70s. Heparin and Nitrogen running as per documentation, see JUL. R radial DAMION and intact. Pt requested PRN Klonopin, administered as per JUL. No complaints from
pt at this time, call anglin within reach.
[2024-06-26 02:05] VITALS: BP 136/94
[2024-06-26] MEDS: HEPARIN 25000 UNITS/250 ML IV ×2 (02:16→17:09)
[2024-06-26] MEDS: TYLENOL 650 MG PO (02:16)
[2024-06-26 02:21] VITALS: BMI 30.3
[2024-06-26 02:58] LABS: Hematocrit 39.6 % (39.0-52.0); Hemoglobin 13.7 g/dL (13.0-18.0); Mean Corp Hgb Conc. 34.6 g/dL (33.0-37.0); Mean Corpuscular Hgb 29.5 pg (27.0-31.0); Mean Corpuscular Volume 85.3 fL (80.0-94.0); Mean Platelet Volume 10.7 fL (7.4-10.4); Platelet Count 224 10^3/uL (130-400); Red Blood Cell Count 4.64 10^6/uL (4.70-6.10); Red Cell Dist. Width 12.6 % (11.5-14.5); White Blood Cell Count 10.6 10^3/uL (4.8-10.8)
[2024-06-26 03:25] LABS: APTT 103.6 Sec (23.4-35.0)
--- NOTE | 2024-06-26 03:56 | W.PN.CT ---
Today's Communication / Plan
-
-no CP overnight, sleeping comfortably. Had CHAMBERLAIN earlier-resolved with Tylenol
-iv Nitro and Heparin renewed
-Cont. current meds (ASA, heparin gtt, NTG gtt, Crestor, Zetia, Cozaar)
-No KEYUR-I/ARBs 48hrs prior to OR, will d/c Cozaar 2 days before surgery
-Plavix washout, last dose 06/22
-Will d/c Heparin and NTG gtt front desk lead to OR
-For CABG/LAUREN Clip by Dr. Naylor Saturday06/30/24
Assessment / Plan
-
Assessment:
64 y/o male, transferred from [facility] for CABG evaluation
-Multivessel CAD
-NSTEMI
-Plavix washout, last dose 06/22
-CAD s/p [place] 1998
-PCI w/ stent to LAD 1998
-S/P PCI with stent to RCA 1999
-S/P PCI with stent to OM 2002
-S/P PCI with FLAKO to LAD/Diag 2017
-HTN/HLD
-NIDDMII on metformin
-Depression
-Anxiety
-BOWEN
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
-Former cigarette smoker (quit abusing street drugs 12 years ago
-Former illicit drug use (nasal crack cocaine, nasal mask, nasal speed)
-Prior alcohol abuse
-History of cervical and lumbar laminectomy
-S/p Cervical and lumbar laminectomy and fusion
-S/P Left lower lobectomy (benign tumor)
Discussed patient care with: Nursing and Care Team
Subjective
-
Date of Service: June 26, 2024
Objective Data
-
Lab Results
06/26/24 02:14
06/23/24 03:20
PT 14.7 Sec (11.4-14.6) H 06/23/24 03:20
INR 1.12 06/23/24 03:20
APTT 103.6 Sec (23.4-35.0) H 06/26/24 02:14
Vital Signs
Vital Signs
Temp Pulse Resp BP Pulse Ox
98.3 F 83 18 153/97 99
06/26/24 02:22 06/25/24 23:00 06/26/24 02:22 06/25/24 22:33 06/26/24 02:22
CT Intake/Output/Weight
06/25/24 06/25/24 06/26/24
06:59 18:59 06:59
Intake Total 480 / 480
Balance 480 / 480
SaO2: 99
Physical Exam
-
General: Awake and AOx3
Cardiovascular: Regular rate & rhythm and No Murmurs
Respiratory: Clear
Extremities: No Edema
Data Reviewed
-
Lab Results: Results Reviewed
Chest X-Ray: Report Reviewed and Image Reviewed
ECG: Report Reviewed and Image Reviewed
[2024-06-26 06:44] VITALS: BP 148/89
[2024-06-26 07:05] LABS: Glucose - Point of Care 115 mg/dl (70-99)
[2024-06-26] MEDS: COZAAR 100 MG PO (07:53)
[2024-06-26] MEDS: CYMBALTA DELAYED RELEASE 60 MG PO (07:53)
[2024-06-26] MEDS: LOW STRENGTH ASPIRIN 81 MG PO (07:53)
[2024-06-26] MEDS: ZETIA 10 MG PO (07:53)
[2024-06-26] MEDS: PROTONIX 40 MG PO (07:53)
[2024-06-26] MEDS: COREG 12.5 MG PO ×2 (07:53→12:23)
[2024-06-26 09:53] LABS: APTT 141.6 Sec (23.4-35.0)
[2024-06-26 11:33] VITALS: BP 105/69
[2024-06-26 11:55] LABS: Glucose - Point of Care 112 mg/dl (70-99)
--- NOTE | 2024-06-26 12:04 | CM ---
CM following for DC planning needs.
Met with patient at bedside. Pre-op teaching completed yesterday. Pt. had no questions or concerns at this time.
Plan is for CABG 06/30.
Antic. DC plan is for home w/ CT Transitional Care RN.
CM to follow.
--- NOTE | 2024-06-26 12:11 | W.PN.CD ---
Today's Communication / Plan
-
Increase carvedilol to 25 mg bid
Impression / Plan
-
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
disorder who developed left-sided chest pain at rest 06/18/2024 with associated DELGADILLO -> LHC at [facility] showed MVCAD. Transferred to for CABG eval.
Primary steward/stewardess railroad dining car: Dr. Jiang ([facility])
CAD, Plavix washout, last dose of clopidogrel 06/22/2024, clopidogrel on hold, continue aspirin/heparin gtt
-CABG evaluation per surgery
First degree AV block
Hypertension
-BP above goal since admission, carvedilol increase to 25 mg BID
-On diltiazem, carvedilol, and losartan
-Medical therapy may again need to be escalated when losartan is placed on hold prior to CABG
NIDDM, with hyperglycemia, not requiring insulin, HgbA1c pending
HLD
-On atorvastatin 80 mg with Zetia, LDL 61, ideally should be under 55
-Switch atorvastatin 80 to rosuvastatin 40mg
BOWEN, LFTs and INR stable
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
Prior tobacco abuse
ETOH abuse, in recovery for 12 years
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
Subjective:
No CP or dyspnea.
Physical Exam
Vital Signs/Labs
Vital Signs
Temp Pulse Resp BP Pulse Ox
97.7 F 78 18 148/89 94
06/26/24 11:30 06/26/24 11:30 06/26/24 11:30 06/26/24 06:44 06/26/24 11:30
06/25/24 06/26/24 06/27/24
06:59 06:59 06:59
Actual Weight 211 lb 10.3 oz 211 lb 3.245 oz
06/26/24 02:14
06/23/24 03:20
PT 14.7 Sec (11.4-14.6) H 06/23/24 03:20
INR 1.12 06/23/24 03:20
APTT 141.6 Sec (23.4-35.0) H 06/26/24 09:26
Magnesium 1.9 mg/dl (1.6-2.3) 06/22/24 18:21
Triglycerides 103 mg/dl (10-149) 06/22/24 18:21
LDL Cholesterol, Calc 61 mg/dl 06/22/24 18:21
VLDL Cholesterol, Calc 20 mg/dl (0-30) 06/22/24 18:21
HDL Cholesterol 46 mg/dl 06/22/24 18:21
Physical Exam
Constitutional: No acute distress and Comfortable
EENT: Anicteric
Cardiovascular: Rhythm & rate is regular and Pedal edema is absent
Respiratory: Respiratory effort normal and Lungs clear to auscul.
GI: Soft
Neuro/Psych: AO x 3
Data Reviewed
-
Date of Service: June 26, 2024
EKG: Tracing Personally Visualized and interpreted (sr)
Labs: Labs Reviewed by me
[2024-06-26 15:31] VITALS: BP 143/89
[2024-06-26] MEDS: NITROGLYCERIN PREMIX 250 IV (17:03)
[2024-06-26 17:04] LABS: Glucose - Point of Care 113 mg/dl (70-99)
[2024-06-26] MEDS: CRESTOR 40 MG PO (17:04)
[2024-06-26 17:26] LABS: Glucose - Point of Care 108 mg/dl (70-99)
[2024-06-26] MEDS: MIRALAX 17 GRAMS PO (17:27)
[2024-06-26] MEDS: SENOKOT-S 1 TABLET PO (17:28)
[2024-06-26 17:47] LABS: APTT 84.1 Sec (23.4-35.0)
[2024-06-26 18:23] VITALS: BP 143/90
--- NOTE | 2024-06-26 19:01 | PTCARENOTE ---
Pt c/o constipation this evening, med with Miralax and senekot as ordered
[2024-06-26] MEDS: COREG 25 MG PO (19:54)
--- NOTE | 2024-06-26 21:11 | PTCARENOTE ---
Received patient at change of shift. SR with a first degree on the monitor, HR in the 80s. Heparin and Nitro running as per order, see MAR. No complaints from pt at this time, call anglin within reach.
[2024-06-26] MEDS: KLONOPIN 3 MG PO (21:26)
[2024-06-26] MEDS: NEURONTIN 100 MG PO (21:26)
[2024-06-26 21:57] LABS: Glucose - Point of Care 123 mg/dl (70-99)
[2024-06-26 23:54] VITALS: BP 110/71
[2024-06-27 00:39] LABS: APTT 89.8 Sec (23.4-35.0)
--- NOTE | 2024-06-27 02:09 | W.PN.CT ---
Addendum entered and electronically signed by Dashawn Smith MD 06/27/24 09:37:
I saw and examined the patient.
The PA's note was reviewed and I agree with the note.
Comment:
No CP
Plavix washout
OR for Saturday w/ Dr. Naylor
Original Note:
Today's Communication / Plan
-
-no issues overnight, denies CP
-Coreg increased on 06/26 to 25 mg bid for better BP control
-Last Cozaar dose today, then hold pre-surgery
-last BM on . Got Miralax 06/26
-renewed IV Heparin and Nitro
-plan for CABG x 4 + LAUREN Clip on 06/[address] Naylor.
Assessment / Plan
-
Assessment:
64 y/o male, transferred from [facility] for CABG evaluation
-Multivessel CAD
-NSTEMI
-Plavix washout, last dose 06/22
-CAD s/p [place] 1998
-PCI w/ stent to LAD 1998
-S/P PCI with stent to RCA 1999
-S/P PCI with stent to OM 2002
-S/P PCI with FLAKO to LAD/Diag 2017
-HTN/HLD
-NIDDMII on metformin
-Depression
-Anxiety
-BOWEN
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
-Former cigarette smoker (quit abusing street drugs 12 years ago
-Former illicit drug use (nasal crack cocaine, nasal mask, nasal speed)
-Prior alcohol abuse
-History of cervical and lumbar laminectomy
-S/p Cervical and lumbar laminectomy and fusion
-S/P Left lower lobectomy (benign tumor)
Discussed patient care with: Nursing and Care Team
Subjective
-
Date of Service: June 27, 2024
Objective Data
-
Lab Results
06/26/24 02:14
06/23/24 03:20
PT 14.7 Sec (11.4-14.6) H 06/23/24 03:20
INR 1.12 06/23/24 03:20
APTT 89.8 Sec (23.4-35.0) H 06/27/24 00:14
Vital Signs
Vital Signs
Temp Pulse Resp BP Pulse Ox
97.5 F 81 18 110/71 94
06/27/24 00:17 06/27/24 00:00 06/27/24 00:17 06/26/24 23:54 06/27/24 00:17
CT Intake/Output/Weight
06/26/24 06/26/24 06/27/24
06:59 18:59 06:59
Intake Total 480 / 480 480 / 480
Balance 480 / 480 480 / 480
SaO2: 94
Physical Exam
-
General: Awake and AOx3
Cardiovascular: Regular rate & rhythm, No Murmurs and No Rub
Respiratory: Clear
Extremities: No Edema
Data Reviewed
-
Lab Results: Results Reviewed
Medications: Active Meds Reviewed
Chest X-Ray: Report Reviewed
CT Scan: Report Reviewed
ECG: Report Reviewed and Image Reviewed
[2024-06-27] MEDS: TYLENOL 650 MG PO ×3 (03:21→21:53)
[2024-06-27 03:24] VITALS: BP 128/79
[2024-06-27 05:46] VITALS: BMI 30.2
[2024-06-27 07:06] VITALS: BP 131/74
[2024-06-27] MEDS: HEPARIN 25000 UNITS/250 ML IV ×2 (07:31→21:54)
--- NOTE | 2024-06-27 08:00 | PTCARENOTE ---
Assumed care of pt from prev nsg shift; Pt AAOx3 w/no c/o CP or SOB. Pt w/VSS w/HR 80's & BP 131/74 this AM. Pt is SR w/1st deg AV block on telemetry monitoring. Pt w/IV Heparin & IV Nitroglycerin infusing through patent IV line as ordered. PTT
ordered for Sun 06/28 AM. Pt ambulating frequently in the rm & OOB to for meals. No additional needs at this time. Plan of care ongoing.
[2024-06-27 08:25] LABS: Glucose - Point of Care 116 mg/dl (70-99)
[2024-06-27] MEDS: COZAAR 100 MG PO (09:54)
[2024-06-27] MEDS: CYMBALTA DELAYED RELEASE 60 MG PO (09:54)
[2024-06-27] MEDS: ZETIA 10 MG PO (09:54)
[2024-06-27] MEDS: PROTONIX 40 MG PO (09:54)
[2024-06-27] MEDS: LOW STRENGTH ASPIRIN 81 MG PO (09:54)
[2024-06-27] MEDS: COREG 25 MG PO ×2 (09:54→21:53)
[2024-06-27 11:11] VITALS: BP 144/79
[2024-06-27 12:14] LABS: Glucose - Point of Care 111 mg/dl (70-99)
--- NOTE | 2024-06-27 14:46 | W.PN.CD ---
Today's Communication / Plan
-
cont meds prior to CABG
Impression / Plan
-
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
disorder who developed left-sided chest pain at rest 06/18/2024 with associated DELGADILLO -> LHC at [facility] showed MVCAD. Transferred to for CABG eval.
Primary java programming professor: Dr. Jiang ([facility])
CAD, Plavix washout, last dose of clopidogrel 06/22/2024, clopidogrel on hold, continue aspirin/heparin gtt
-CABG evaluation per surgery
First degree AV block
Hypertension
-BP above goal since admission, carvedilol increase to 25 mg BID
-On diltiazem, carvedilol, and losartan
-Medical therapy may again need to be escalated when losartan is placed on hold prior to CABG
NIDDM, with hyperglycemia, not requiring insulin, HgbA1c pending
HLD
-On atorvastatin 80 mg with Zetia, LDL 61, ideally should be under 55
-Switch atorvastatin 80 to rosuvastatin 40mg
BOWEN, LFTs and INR stable
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
Prior tobacco abuse
ETOH abuse, in recovery for 12 years
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
Subjective:
No CP or dyspnea.
Physical Exam
Vital Signs/Labs
Vital Signs
Temp Pulse Resp BP Pulse Ox
98.4 F 84 18 144/79 96
06/27/24 11:11 06/27/24 12:00 06/27/24 11:11 06/27/24 11:11 06/27/24 11:11
06/26/24 06/27/24 06/28/24
06:59 06:59 06:59
Actual Weight 211 lb 3.245 oz 210 lb 5.136 oz
06/26/24 02:14
06/23/24 03:20
PT 14.7 Sec (11.4-14.6) H 06/23/24 03:20
INR 1.12 06/23/24 03:20
APTT 89.8 Sec (23.4-35.0) H 06/27/24 00:14
Magnesium 1.9 mg/dl (1.6-2.3) 06/22/24 18:21
Triglycerides 103 mg/dl (10-149) 06/22/24 18:21
LDL Cholesterol, Calc 61 mg/dl 06/22/24 18:21
VLDL Cholesterol, Calc 20 mg/dl (0-30) 06/22/24 18:21
HDL Cholesterol 46 mg/dl 06/22/24 18:21
Physical Exam
Constitutional: No acute distress and Comfortable
EENT: Anicteric
Cardiovascular: Rhythm & rate is regular and Pedal edema is absent
Respiratory: Respiratory effort normal and Lungs clear to auscul.
GI: Soft
Neuro/Psych: AO x 3
Data Reviewed
-
Date of Service: June 27, 2024
Medical Decision Making: Reviewed Test Results
EKG: Tracing Personally Visualized and interpreted (sr)
Labs: Labs Reviewed by me
[2024-06-27 16:27] VITALS: BP 129/82
[2024-06-27 17:44] LABS: Glucose - Point of Care 128 mg/dl (70-99)
[2024-06-27 18:23] VITALS: BP 148/72
[2024-06-27] MEDS: CRESTOR 40 MG PO (18:31)
[2024-06-27 21:50] VITALS: BP 149/82
[2024-06-27] MEDS: KLONOPIN 3 MG PO (21:53)
[2024-06-27] MEDS: NEURONTIN 100 MG PO (21:53)
--- NOTE | 2024-06-27 23:33 | PTCARENOTE ---
Pt without CP complaints. 07/13 complaint of CHAMBERLAIN- POC discussed- ambulating the room as self. SR with first degree.
[2024-06-28] VITALS (8 sets, daily range): BP systolic 124–155; BP diastolic 71–91
[2024-06-28 03:28] LABS: Hemoglobin 14.2 g/dL (13.0-18.0); Mean Corp Hgb Conc. 33.8 g/dL (33.0-37.0); Mean Corpuscular Hgb 29.5 pg (27.0-31.0); Mean Corpuscular Volume 87.1 fL (80.0-94.0); Mean Platelet Volume 10.7 fL (7.4-10.4); Platelet Count 228 10^3/uL (130-400); Red Blood Cell Count 4.82 10^6/uL (4.70-6.10); Red Cell Dist. Width 12.8 % (11.5-14.5); White Blood Cell Count 9.8 10^3/uL (4.8-10.8)
[2024-06-28 03:42] LABS: APTT 36.2 Sec (23.4-35.0)
[2024-06-28 03:56] LABS: Blood Urea Nitrogen 15 mg/dl (9-20); Calcium 9.8 mg/dl (8.4-10.2); Carbon Dioxide 23 mmol/L (22-30); Chloride 99 mmol/L (98-107); Estimated Creatinine Clearance 109 ml/min; Glucose 118 mg/dl (70-99); Magnesium 2.2 mg/dl (1.6-2.3); Potassium 4.8 mmol/L (3.5-5.1); Sodium 132 mmol/L (135-145); eGFR > 60.00
[2024-06-28 04:37] LABS: APTT 49.8 Sec (23.4-35.0)
--- NOTE | 2024-06-28 05:50 | W.PN.CT ---
Addendum entered and electronically signed by Dashawn Smith MD 06/28/24 09:39:
I saw and examined the patient.
The PA's note was reviewed and I agree with the note.
Comment:
OR Saturday for CABG w/ Dr. Naylor
Original Note:
Today's Communication / Plan
-
-Plavix washout pending CABG, last dose 06/22/24
-Continues to deny chest pain or anginal equivalent
-Coreg increased on 06/26 to 25 mg BID, appreciate cardiology recs
-Last Cozaar dose 06/27, then hold pre-surgery
-last BM on . Got Miralax 06/26
-continue IV Heparin and Nitro
-plan for CABG x 4 + LAUREN Clip on 06/[address] Naylor
Assessment / Plan
-
Assessment:
64 y/o male, transferred from [facility] for CABG evaluation
-Multivessel CAD
-NSTEMI
-Plavix washout, last dose 06/22
-CAD s/p DE 1998
-PCI w/ stent to LAD 1998
-S/P PCI with stent to RCA 1999
-S/P PCI with stent to OM 2002
-S/P PCI with FLAKO to LAD/Diag 2017
-HTN/HLD
-NIDDMII on metformin
-Depression
-Anxiety
-BOWEN
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
-Former cigarette smoker (quit abusing street drugs 12 years ago
-Former illicit drug use (nasal crack cocaine, nasal mask, nasal speed)
-Prior alcohol abuse
-History of cervical and lumbar laminectomy
-S/p Cervical and lumbar laminectomy and fusion
-S/P Left lower lobectomy (benign tumor)
Subjective
-
Date of Service: June 28, 2024
Objective Data
-
Lab Results
06/28/24 03:02
06/28/24 03:02
PT 14.7 Sec (11.4-14.6) H 06/23/24 03:20
INR 1.12 06/23/24 03:20
APTT 49.8 Sec (23.4-35.0) H 06/28/24 04:14
Vital Signs
Vital Signs
Temp Pulse Resp BP Pulse Ox
98.5 F 96 20 148/91 94
06/28/24 02:59 06/28/24 03:00 06/28/24 02:59 06/28/24 02:56 06/28/24 02:59
CT Intake/Output/Weight
06/27/24 06/27/24 06/28/24
06:59 18:59 06:59
Intake Total 480 / 480 720 / 1440 720 / 1440
Balance 480 / 480 720 / 1440 720 / 1440
SaO2: 94
Physical Exam
-
General: Awake, Oriented and AOx3
Cardiovascular: Regular rate & rhythm, No Murmurs and No Rub
Respiratory: Clear and Equal
Extremities: No Edema
Data Reviewed
-
Lab Results: Results Reviewed
Medications: Active Meds Reviewed
[2024-06-28 07:55] LABS: Glucose - Point of Care 111 mg/dl (70-99)
[2024-06-28] MEDS: CYMBALTA DELAYED RELEASE 60 MG PO (07:55)
[2024-06-28] MEDS: ZETIA 10 MG PO (07:55)
[2024-06-28] MEDS: LOW STRENGTH ASPIRIN 81 MG PO (07:55)
[2024-06-28] MEDS: PROTONIX 40 MG PO (07:55)
[2024-06-28] MEDS: COREG 25 MG PO ×2 (07:56→19:48)
[2024-06-28] MEDS: TYLENOL 650 MG PO ×2 (07:56→19:47)
--- NOTE | 2024-06-28 09:40 | W.PN.CD ---
Today's Communication / Plan
-
cont meds prior to CABG Saturday
Impression / Plan
-
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
disorder who developed left-sided chest pain at rest 06/18/2024 with associated DELGAIDLLO -> LHC at [facility] showed MVCAD. Transferred to for CABG eval.
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 Jiang ([facility])
CAD, Plavix washout, last dose of clopidogrel 06/22/2024, clopidogrel on hold, continue aspirin/heparin gtt
-CABG evaluation per surgery
First degree AV block
Hypertension
-cont coreg 25 mg bid
-On diltiazem, carvedilol, and losartan
-Medical therapy may again need to be escalated when losartan is placed on hold prior to CABG
NIDDM, with hyperglycemia, not requiring insulin, HgbA1c pending
HLD
-On atorvastatin 80 mg with Zetia, LDL 61, ideally should be under 55
-Switch atorvastatin 80 to rosuvastatin 40mg
BOWEN, LFTs and INR stable
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
Prior tobacco abuse
ETOH abuse, in recovery for 12 years
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
Subjective:
No CP or dyspnea. sneezing frequently
Physical Exam
Vital Signs/Labs
Vital Signs
Temp Pulse Resp BP Pulse Ox
97.8 F 84 20 134/86 95
06/28/24 06:47 06/28/24 07:56 06/28/24 06:47 06/28/24 07:56 06/28/24 06:47
06/27/24 06/28/24 06/29/24
06:59 06:59 06:59
Actual Weight 210 lb 5.136 oz 208 lb 15.971 oz
06/28/24 03:02
06/28/24 03:02
PT 14.7 Sec (11.4-14.6) H 06/23/24 03:20
INR 1.12 06/23/24 03:20
APTT 49.8 Sec (23.4-35.0) H 06/28/24 04:14
Magnesium 2.2 mg/dl (1.6-2.3) 06/28/24 03:02
Triglycerides 103 mg/dl (10-149) 06/22/24 18:21
LDL Cholesterol, Calc 61 mg/dl 06/22/24 18:21
VLDL Cholesterol, Calc 20 mg/dl (0-30) 06/22/24 18:21
HDL Cholesterol 46 mg/dl 06/22/24 18:21
Physical Exam
Constitutional: No acute distress and Comfortable
EENT: Anicteric
Cardiovascular: Rhythm & rate is regular and Pedal edema is absent
Respiratory: Respiratory effort normal
GI: Soft
Neuro/Psych: AO x 3
Data Reviewed
-
Date of Service: June 28, 2024
Medical Decision Making: Reviewed Test Results
EKG: Tracing Personally Visualized and interpreted (sr)
Labs: Labs Reviewed by me
[2024-06-28 11:57] LABS: APTT 92.2 Sec (23.4-35.0)
[2024-06-28 13:06] LABS: Glucose - Point of Care 104 mg/dl (70-99)
[2024-06-28] MEDS: MIRALAX 17 GRAMS PO (14:16)
[2024-06-28] MEDS: HEPARIN 25000 UNITS/250 ML IV (14:23)
--- NOTE | 2024-06-28 18:04 | PTCARENOTE ---
pt has questionable VT on monitor, notified RAKESH [facility] notified. pt asymptomatic. vss. pt now currently sr w/ a first, vss. pt offers no complaints at this time. pt oob to chair and tolerating well. call anglin within reach.
[2024-06-28] MEDS: CRESTOR 40 MG PO (18:12)
[2024-06-28 18:46] LABS: APTT 118.7 Sec (23.4-35.0)
--- NOTE | 2024-06-28 20:12 | PTCARENOTE ---
Received patient at change of shift. Patient A&Ox3. Heparin gtt running @ 1800 units/hr and nitro gtt running at 3 mL/hr (20 mcg/min) through right wrist. Pt c/o headache-- Tylenol given-- see JUL. No c/o chest pain. Right radial site open to air.
Vitals stable. Discussed plan of care for evening. Patient verbalized understanding. Call anglin within reach.
[2024-06-28 21:18] LABS: Glucose - Point of Care 112 mg/dl (70-99)
[2024-06-28] MEDS: KLONOPIN 3 MG PO (21:25)
[2024-06-28] MEDS: NEURONTIN 100 MG PO (21:25)
[2024-06-29 02:11] VITALS: BP 123/88
[2024-06-29] MEDS: HEPARIN 25000 UNITS/250 ML IV ×2 (02:15→18:32)
[2024-06-29 02:27] VITALS: BMI 30.1
[2024-06-29] MEDS: TYLENOL 650 MG PO ×2 (02:30→15:13)
[2024-06-29 02:38] LABS: APTT 147.3 Sec (23.4-35.0)
--- NOTE | 2024-06-29 05:26 | W.PN.CT ---
Today's Communication / Plan
-
-Plavix washout pending CABG, last dose 06/22/24
-No chest pain while on nitro gtt
-Coreg increased on 06/26 to 25 mg BID, appreciate cardiology recs
-continue IV Heparin and Nitro
-plan for CABG x 4 + LAUREN Clip on 06/[address] Naylor
Assessment / Plan
-
Assessment:
64 y/o male, transferred from [facility] for CABG evaluation
-Multivessel CAD
-NSTEMI
-Plavix washout, last dose 06/22
-CAD s/p PA 1998
-PCI w/ stent to LAD 1998
-S/P PCI with stent to RCA 1999
-S/P PCI with stent to OM 2002
-S/P PCI with FLAKO to LAD/Diag 2017
-HTN/HLD
-NIDDMII on metformin
-Depression
-Anxiety
-BOWEN
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
-Former cigarette smoker (quit abusing street drugs 12 years ago
-Former illicit drug use (nasal crack cocaine, nasal mask, nasal speed)
-Prior alcohol abuse
-History of cervical and lumbar laminectomy
-S/p Cervical and lumbar laminectomy and fusion
-S/P Left lower lobectomy (benign tumor)
Subjective
-
Date of Service: June 29, 2024
Objective Data
-
Lab Results
06/28/24 03:02
06/28/24 03:02
PT 14.7 Sec (11.4-14.6) H 06/23/24 03:20
INR 1.12 06/23/24 03:20
APTT 147.3 Sec (23.4-35.0) H 06/29/24 02:17
Vital Signs
Vital Signs
Temp Pulse Resp BP Pulse Ox
97.9 F 78 16 123/88 93
06/28/24 22:46 06/29/24 05:00 06/28/24 22:46 06/29/24 02:11 06/29/24 02:11
CT Intake/Output/Weight
06/28/24 06/28/24 06/29/24
06:59 18:59 06:59
Intake Total 720 / 1440 480 / 480
Balance 720 / 1440 480 / 480
SaO2: 93
Physical Exam
-
General: Awake, Oriented and AOx3
Cardiovascular: Regular rate & rhythm, No Murmurs and No Rub
Respiratory: Clear and Equal
Extremities: No Edema and No Erythema
Data Reviewed
-
Lab Results: Results Reviewed
Medications: Active Meds Reviewed
Chest X-Ray: Report Reviewed
ECG: Report Reviewed
[2024-06-29 06:47] VITALS: BP 123/73
[2024-06-29 07:13] LABS: Glucose - Point of Care 120 mg/dl (70-99)
[2024-06-29] MEDS: COREG 25 MG PO ×2 (07:30→20:57)
[2024-06-29] MEDS: SENOKOT-S 1 TABLET PO (07:30)
[2024-06-29] MEDS: ZETIA 10 MG PO (07:30)
[2024-06-29] MEDS: CYMBALTA DELAYED RELEASE 60 MG PO (07:30)
[2024-06-29] MEDS: PROTONIX 40 MG PO (07:31)
[2024-06-29] MEDS: LOW STRENGTH ASPIRIN 81 MG PO (07:31)
[2024-06-29] MEDS: FLUSH (NSS) 1 FLUSH IV (07:32)
--- NOTE | 2024-06-29 07:40 | PTCARENOTE ---
The patient is aaox3, vital signs are stable. NSR with a 1st degree AVB is noted on the monitor. Heparin gtt running at 1600 units/hr. Nitro gtt running at 3ml/hr. He has no complains of pain. The patient does complain of not having a BM since the
and feels he needs some help to go. Senokot and Miralax prn given as ordered. I encouraged him to walk around more, in the halls. Pre-op teaching and expectations reviews with the patient.
--- NOTE | 2024-06-29 09:36 | W.PN.CD ---
Today's Communication / Plan
-
CABG tomorrow
Impression / Plan
-
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
disorder who developed left-sided chest pain at rest 06/18/2024 with associated DELGADILLO -> LHC at [facility] showed MVCAD. Transferred to for CABG eval.
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 Jiang ([facility])
CAD, Plavix washout, last dose of clopidogrel 06/22/2024, clopidogrel on hold, continue aspirin/heparin gtt
-CABG Tomorrow
First degree AV block
Hypertension stable
-cont coreg 25 mg bid
-On diltiazem, carvedilol, and losartan
-Medical therapy may again need to be escalated when losartan is placed on hold prior to CABG
NIDDM, with hyperglycemia, not requiring insulin, HgbA1c pending
HLD
-On atorvastatin 80 mg with Zetia, LDL 61, ideally should be under 55
-Switch atorvastatin 80 to rosuvastatin 40mg
BOWEN, LFTs and INR stable
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
Prior tobacco abuse
ETOH abuse, in recovery for 12 years
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
Subjective:
No CP or dyspnea CABG tomorrow
Physical Exam
Vital Signs/Labs
Vital Signs
Temp Pulse Resp BP Pulse Ox
98.2 F 83 20 123/73 92
06/29/24 06:45 06/29/24 07:00 06/29/24 06:45 06/29/24 06:47 06/29/24 06:47
06/28/24 06/29/24 06/30/24
06:59 06:59 06:59
Actual Weight 208 lb 15.971 oz 209 lb 10.554 oz
06/28/24 03:02
06/28/24 03:02
PT 14.7 Sec (11.4-14.6) H 06/23/24 03:20
INR 1.12 06/23/24 03:20
APTT 147.3 Sec (23.4-35.0) H 06/29/24 02:17
Magnesium 2.2 mg/dl (1.6-2.3) 06/28/24 03:02
Triglycerides 103 mg/dl (10-149) 06/22/24 18:21
LDL Cholesterol, Calc 61 mg/dl 06/22/24 18:21
VLDL Cholesterol, Calc 20 mg/dl (0-30) 06/22/24 18:21
HDL Cholesterol 46 mg/dl 06/22/24 18:21
Physical Exam
Constitutional: No acute distress and Comfortable
EENT: Anicteric
Cardiovascular: Rhythm & rate is regular and Pedal edema is absent
Respiratory: Respiratory effort normal and Lungs clear to auscul.
GI: Soft
Neuro/Psych: AO x 3
Data Reviewed
-
Date of Service: June 29, 2024
EKG: Tracing Personally Visualized and interpreted (sr)
Labs: Labs Reviewed by me
--- NOTE | 2024-06-29 09:42 | PTCARENOTE ---
Patient had a moderate form BM this am.
[2024-06-29 11:02] LABS: APTT 85.2 Sec (23.4-35.0)
[2024-06-29 11:10] VITALS: BP 152/86
[2024-06-29 12:12] LABS: Glucose - Point of Care 97 mg/dl (70-99)
--- NOTE | 2024-06-29 12:44 | W.CVOR.SURPR ---
CVOR Surgeon Immed Pre Op
-
I have examined this patient prior to performance of the scheduled procedure.
The patient's condition is unchanged from the time of the dictated/written History and
Physical and the patient is able to undergo the scheduled procedure.
CABG + LAUREN Clip
--- NOTE | 2024-06-29 15:14 | PTCARENOTE ---
patient c/o frontal headache, Tylenol po given as ordered.
[2024-06-29 15:23] VITALS: BP 139/80
--- NOTE | 2024-06-29 15:42 | CM ---
plan is for CABG in am. cm following
[2024-06-29 16:47] LABS: Glucose - Point of Care 122 mg/dl (70-99)
[2024-06-29 17:18] LABS: APTT 63.1 Sec (23.4-35.0)
[2024-06-29] MEDS: CRESTOR 40 MG PO (17:34)
[2024-06-29] MEDS: NITROGLYCERIN PREMIX 250 IV (18:30)
[2024-06-29 20:56] VITALS: BP 149/85
[2024-06-29] MEDS: NEURONTIN 100 MG PO (20:57)
[2024-06-29] MEDS: KLONOPIN 3 MG PO (20:58)
[2024-06-29 21:02] LABS: Glucose - Point of Care 138 mg/dl (70-99)
--- NOTE | 2024-06-29 22:30 | PTCARENOTE ---
assumed care of patient @ 1900. received pt laying in bed, Aox3. VSS on RA. NSR 1st degree. Diminished L base. PIV patent running heparin at 18 and nitro at 20. next PTT 2330. clipped pt, washed with CHG soap. resting comfortably in bed .
[2024-06-30] VITALS (8 sets, daily range): BP systolic 118–150; BP diastolic 70–94; BMI 29.5
--- NOTE | 2024-06-30 | PTCARENOTE ---
pt resting comfortably w call anglin within reach
[2024-06-30 01:24] LABS: Hematocrit 40.2 % (39.0-52.0); Mean Corp Hgb Conc. 34.8 g/dL (33.0-37.0); Mean Corpuscular Hgb 29.5 pg (27.0-31.0); Mean Corpuscular Volume 84.8 fL (80.0-94.0); Mean Platelet Volume 10.4 fL (7.4-10.4); Platelet Count 225 10^3/uL (130-400); Red Blood Cell Count 4.74 10^6/uL (4.70-6.10); Red Cell Dist. Width 12.8 % (11.5-14.5); White Blood Cell Count 9.1 10^3/uL (4.8-10.8)
[2024-06-30 01:33] LABS: APTT 146.8 Sec (23.4-35.0)
[2024-06-30 01:55] LABS: Blood Urea Nitrogen 15 mg/dl (9-20); Calcium 9.9 mg/dl (8.4-10.2); Carbon Dioxide 26 mmol/L (22-30); Chloride 98 mmol/L (98-107); Estimated Creatinine Clearance > 125 ml/min; Glucose 125 mg/dl (70-99); Magnesium 2.2 mg/dl (1.6-2.3); Potassium 4.6 mmol/L (3.5-5.1); Sodium 133 mmol/L (135-145); eGFR > 60.00
[2024-06-30] MEDS: TYLENOL 650 MG PO (05:57)
[2024-06-30] MEDS: MAGNESIUM OXIDE 500 MG PO (05:57)
[2024-06-30] MEDS: LOPRESSOR 25 MG PO (05:57)
[2024-06-30] MEDS: PROTONIX 40 MG PO (05:57)
[2024-06-30] MEDS: BACTROBAN 2% OINTMENT 1 APPLIC NASAL ×2 (05:58→19:57)
--- NOTE | 2024-06-30 07:24 | PTCARENOTE ---
pt given 2nd CHG bath and transported to [facility] @ 0630
[2024-06-30 07:35] LABS: ACT+ - POC 98 Seconds (82-134)
--- NOTE | 2024-06-30 08:00 | CM ---
Reviewed chart. Mr. Voss is in the operating room today. Prior to admission he resides with his spouse in a two story home with one step to enter. Prior to admission he was independent with ambulation and adls. He does not have any DME in the
home. Medial work-up in progress. The discharge plan is to return home with his spouse and a home visit by the Transitional Care Nurse when medically stable.
[2024-06-30 09:09] LABS: ACT+ - POC 468 Seconds (82-134)
[2024-06-30 09:16] LABS: Urine Albumin Negative (Neg - Trace); Urine Bilirubin Negative (Negative); Urine Character Clear (Clear); Urine Color Yellow; Urine Glucose Negative (Negative); Urine Ketone Negative (Negative); Urine Leukocyte Negative (Negative); Urine Nitrite Negative (Negative); Urine Occult Blood Negative (Negative); Urine Urobilinogen Negative (Neg - 1+); Urine pH 6.5 (5.0-9.0)
[2024-06-30 09:37] LABS: ACT+ - POC 508 Seconds (82-134)
[2024-06-30 09:47] LABS: B.E. - POC -2.6 mmol/L; Glucose - POC 168 mg/dl (70-99); HCO3 - POC 23 mmol/L (21-28); Hematocrit - POC 33 % PCV (42-52); Hemodilution- POC Yes; Hemoglobin Calculated - POC 11.1; Ionized Calcium - POC 1.11 mmol/L (1.15-1.33); PCO2 - POC 41 mmHg (35-48); PO2 - POC 402 mmHg (83-108); POC Comment CORR; Potassium - POC 5.3 mmol/L (3.5-5.1); Sodium - POC 132 mmol/L (136-145); Specimen Type - POC Arterial; pH - POC 7.35 (7.35-7.45)
--- NOTE | 2024-06-30 09:51 | PN.CDI ---
Addendum entered and electronically signed by Maurilio Mcrae PA-C 06/30/24 10:59:
Patient with hyponatremia. Admitted for NSTEMI from [facility]. Awaiting CABG today
Original Note:
CDI
- -
CDI:
Physician Documentation Request
Admit Date: 06/22/24 17:[address] Surgery,
Patient admitted for NSTEMI.
Laboratory Tests
06/22/24 06/23/24 06/28/24
18:21 03:20 03:02
Sodium 133 L 134 L 132 L
06/30/24
01:11
Sodium 133 L
Based on the above, could you clarify in the progress notes, the appropriate diagnosis, if significant, that supports the above abnormalities and additional evaluation, monitoring and/or treatment rendered:
Hyponatremia
Abnormal lab value insignificant
Other
Use of terms such as suspected, likely, concern for, or probable (associated with a specific diagnosis that is being evaluated, monitored, or treated as if it exists) are acceptable and can be coded in the inpatient setting, when documented at the
time of discharge.
Thank you,
Stephenie Seaman RN, BSN
CDI Specialist
Available via [place] text
Please use your independent medical judgment in providing your response.
[2024-06-30 09:58] LABS: B.E. - POC -0.8 mmol/L; Glucose - POC 125 mg/dl (70-99); HCO3 - POC 24 mmol/L (21-28); Hematocrit - POC 42 % PCV (42-52); Hemodilution- POC No; Hemoglobin Calculated - POC 14.3; Ionized Calcium - POC 1.25 mmol/L (1.15-1.33); O2 Saturation %Calculated-POC 99.3 % (94-98); PCO2 - POC 41 mmHg (35-48); PO2 - POC 152 mmHg (83-108); Potassium - POC 4.4 mmol/L (3.5-5.1); Sodium - POC 135 mmol/L (136-145); Specimen Type - POC Arterial; pH - POC 7.38 (7.35-7.45)
[2024-06-30 10:06] LABS: ACT+ - POC 436 Seconds (82-134)
[2024-06-30 10:27] LABS: B.E. - POC 2.1 mmol/L; Glucose - POC 159 mg/dl (70-99); HCO3 - POC 27 mmol/L (21-28); Hematocrit - POC 33 % PCV (42-52); Hemodilution- POC Yes; Hemoglobin Calculated - POC 11.1; Ionized Calcium - POC 1.17 mmol/L (1.15-1.33); Lactate - POC 0.76 mmol/L (0.36-0.75); O2 Saturation %Calculated-POC 99.9 % (94-98); PCO2 - POC 42 mmHg (35-48); PO2 - POC 285 mmHg (83-108); Potassium - POC 4.9 mmol/L (3.5-5.1); Sodium - POC 132 mmol/L (136-145); Specimen Type - POC Arterial; pH - POC 7.42 (7.35-7.45)
[2024-06-30 10:36] LABS: ACT+ - POC 530 Seconds (82-134)
[2024-06-30] MEDS: ANCEF 10 IV ×2 (10:52→15:48)
[2024-06-30 11:00] LABS: Glucose - POC 158 mg/dl (70-99); HCO3 - POC 28 mmol/L (21-28); Hematocrit - POC 37 % PCV (42-52); Hemodilution- POC Yes; Hemoglobin Calculated - POC 12.6; Lactate - POC 1.15 mmol/L (0.36-0.75); O2 Saturation %Calculated-POC 97.1 % (94-98); PCO2 - POC 46 mmHg (35-48); PO2 - POC 94 mmHg (83-108); Potassium - POC 5.1 mmol/L (3.5-5.1); Sodium - POC 135 mmol/L (136-145); Specimen Type - POC Arterial; pH - POC 7.39 (7.35-7.45)
[2024-06-30 11:04] LABS: ACT+ - POC 115 Seconds (82-134)
[2024-06-30 11:06] LABS: B.E. - POC -1.9 mmol/L; Glucose - POC 121 mg/dl (70-99); HCO3 - POC 23 mmol/L (21-28); Hematocrit - POC 31 % PCV (42-52); Hemodilution- POC No; Hemoglobin Calculated - POC 10.7; Ionized Calcium - POC 1.41 mmol/L (1.15-1.33); Lactate - POC 0.34 mmol/L (0.36-0.75); PCO2 - POC 40 mmHg (35-48); PO2 - POC 477 mmHg (83-108); Potassium - POC 4.1 mmol/L (3.5-5.1); Sodium - POC 135 mmol/L (136-145); Specimen Type - POC Arterial; pH - POC 7.37 (7.35-7.45)
--- NOTE | 2024-06-30 11:12 | W.PN.CT.SURG ---
CT Surgery Operative Note
-
CARDIAC SURGERY OPERATIVE REPORT
Preoperative Diagnosis: Multivessel Coronary Artery Disease with NSTEMI
Postoperative Diagnosis: Same
Procedure(s) Performed:
1. Standard sternotomy with aortic and right atrial cannulation
2. Multi arterial coronary artery bypass grafting x 4 (In situ SEVILLA to LAD, Ao to left radial artery to ramus sequential to OM, Ao to RSVG to RPDA)
3. Left atrial appendage exclusion [40 mm clip]
4. Endoscopic vein and artery harvesting of right lower extremity and left radial, respectively
5. Transesophageal echocardiography
6. Placement of temporary ventricular pacing wire
Date of Surgery: 06/30/2024
Comorbidities:
1. NSTEMI, multi arterial coronary disease
2. Previous myocardial infarction with PCI and stent to the LAD
3. Hypertension
4. Hyperlipidemia
5. Nqy-kyruzaa-aivwbbbpq diabetes mellitus type 2
6. Anxiety
7. BOWEN/liver disease
8. 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
9. History of illicit drug abuse
10. Obese
Attending Surgeon: Santy Naylor MD, MS
Assistants: Santy Harper PA-C (present and necessary to operator/assistant foreman, endoscopic vein harvest, retraction, suction, exposure, suture management, and wound closure under my direction), Lillian Cobb PA-C (L Radial Gregory)
Anesthesiology: Shawn Mariscal MD and Celso Mabry CRNA
Scrub and Circulating RNs: Kellen Gross, CEFERINO, Theodore Mcfarlane RN
Infrastructure Tech: Cammie Dial CCP
Anesthesia: GETA
EBL: per perfusion records
Products: none
CPB Time: 83 minutes
Aortic Cross Clamp Time: 73 minutes
Indication(s) for Procedures: This is a 64-year-old male who presents to the hospital with dyspnea on exertion and left-sided chest pain that was new. He was found to have an NSTEMI and underwent left heart cath and was found to have multivessel
coronary artery disease. He was transferred here for coronary revascularization assessment. Given that he takes Plavix chronically, he was given a period of approximately 7 days to wash out of his system.
Conduit(s) Quality:
SEVILLA -excellent/skeletonized, good quality graft with excellent flow
RSVG -excellent/good quality vein with minimal varicosities or thickening
Left radial�excellent/good quality arterial graft with no focal areas of dissection
Target(s) Quality:
RCA/PDA -good/large sized target with excellent flow post bypass, mean flow was approximately 30 cc a minute with a pulsatility index of 3.6
OM -good/smaller and thinner vessel but overall had excellent flow, test dosing of antegrade here for sequential grafting yielded a mean flow of approximately 40 cc a minute at a pressure of 80 mmHg
Ramus intermedius�very good�large sized target, test dose of antegrade yielded a flow of approximately 40 cc a minute at a pressure of 80 mmHg, flow probe assessment of the radial graft yielded a mean flow of the 42 cc a minute at a pulsatility
index of 3.6
LAD -excellent/good quality LAD target after the area of stenting and calcification, mean flow on assessment was 20 cc a minute at a pulsatility index of 2.3, there is also excellent visual flow in the LAD and diagonal territory upon removal of the
bulldog clamp
Implants: 40 mm left atrial appendage clip, serial #[id number]
Findings: His left ventricular ejection fraction preoperatively was 60% with no significant regional wall motion abnormalities. Following surgery his EF remained the same and slightly hyperdynamic until volume was given back to him. His EF was
probably 65 to 70% during which time he had mild dynamic systolic anterior motion of the leaflets with mild to moderate mitral valve insufficiency. Afterload was increased and volume was given, this resolved the mitral valve insufficiency to trace
with no SAUMYA recurring. His left atrial appendage was verified to be free of any thrombus or debris preoperatively and found to be totally occlusive postoperatively with a 40 mm device applied flush to the base. The SEVILLA was harvested in a
skeletonized fashion. Following bypass grafting, test dose cardioplegia was given down each distal and confirmed patency and hemostasis. Flow probe was used to assess all graft flow and all found to have excellent mean flows and pulsatility
indices. He did require short period of VVI pacing while he was junctional at which point he regained a sinus rhythm. No blood products were transfused. No inotropes were used.
Description of Procedure: The patient was taken to the operating room. Their identity and procedure to be performed were verified and they were positioned supine on the operating table. Induction via general anesthesia with endotracheal intubation
was performed and central venous access and arterial monitoring were inserted. A preoperative transesophageal echocardiogram was performed to assess cardiac function and valvular function. The patient was then prepped and draped from chin to feet in
a sterile fashion. A preoperative time-out was performed with all members of the team present. A midline chest incision was performed along with median sternotomy. Simultaneous endoscopic access of the left radial and right lower extremity for
arterial and saphenous vein harvest was obtained along with administration of an initial 5,000 units of IV heparin. A RulTract sternal retractor was positioned to exposure the left internal mammary bed. There is minimal left intrathoracic adhesions
to my surprise. The mammary was harvested and found to have good flow. A bulldog clamp was applied to the distal end of the mammary after dividing it. It was wrapped in a papaverine soaked RayTec and replaced back into the left hemithorax. The
RulTract was exchanged for a median sternal retractor. The innominate vein was isolated. Full heparinization was given (a total of 55,000 units). We created a pericardial well. The aortic cannulation site was chosen where it was soft, pliable, and
free of calcium. Cannulation was performed with an arterial cannula in the ascending aorta and a triple-stage venous cannula through the right atrial appendage. The arterial cannula line had an appropriate bounce and correlating pressures with test
dosing. Next, a root vent/antegrade cannula was inserted into the ascending aorta. The ACT was confirmed to be over 400 and retrograde autologous priming was performed before commencing cardiopulmonary bypass. The pulmonary artery was away
from the aorta to facilitate a clamp site. The aortic cross-clamp was placed after decreasing the flow on the bypass and mean arterial pressure. A total of 1.2L initial dose of antegrade Del-Nido cardioplegia solution was given and planned for
re-dosing every 75 minutes as necessary. There was rapid electro-mechanical arrest of the heart at 250 cc of cardioplegia. The left ventricle was observed for distention on echocardiogram and manual palpation. Cold slush was placed into a sponge and
topically on the RV while we systemically cooled to 34 degrees centigrade. Once heart was fully arrested it was rotated medially and the left atrial appendage was clipped flush the base.
I positioned the heart to expose the distal right coronary at the posterior descending artery. A chilkat blade was used to expose the coronary and perform the arteriotomy. Coronary Cabezas scissors were used to enlarge the incision. The saphenous vein
was trimmed and beveled to an appropriate size. The distal anastomosis was performed using 7-0 prolene in an end-to-side fashion. Antegrade cardioplegia was administered into the graft. Appropriate hemostasis and flow were confirmed. The graft was
measured for length to the aorta and cut. A suitable site on the obtuse marginal was chosen. We dissected and prepared the distal target in a similar fashion. An end-to-side anastomosis was created with a 8-0 prolene with a radiograph. Antegrade
cardioplegia was administered into the graft. Appropriate hemostasis and flow were confirmed. Repair stitch towards the heel was placed in a micro core knot was used to secure both the suture line and this repair stitch. The graft was measured for
length to the aorta and to accommodate a sequential graft. The ramus intermedius was identified and repaired in similar fashion. The underbelly of the radial graft was dissected and the small arteriotomy was created and enlarged with Cabezas
scissors. A hhos-kj-nrya anastomosis was created with 7-0 Prolene and secured with a micro core knot. I clamped the distal end of the sequential graft and gave test dosing antegrade down the radial artery which demonstrated excellent flow and
hemostasis. The bulldog was then removed and flow increased. A suitable target on the mid/distal left anterior descending was identified. We dissected and prepared the distal target in a similar fashion. We retrieved the SEVILLA from the chest and
created a pericardial opening while being cognizant of the phrenic nerve to facilitate the course of the mammary. The distal end of the mammary was prepped and beveled to size. We verified orientation and length of the YAMIL and found brisk flow. An
end-to-side anastomosis was created with a 7-0 prolene. We temporarily released the bulldog clamp on the mammary to inspect flow. Perfusion to the LAD territory was visualized and hemostasis was confirmed. The bull clamp was replaced on the mammary.
The heart was filled and the root was distended with antegrade cardioplegia to make final assessment of graft length and orientation. We created 2 aortotomies using a #11 blade then a 4.0mm aortic punch. The proximal anastomoses were created in an
end-to-side fashion using 6-0 prolene for the vein and 7-0 Prolene for the radial graft. At the the same time, we re-warmed to 36.5 degrees centigrade. The bulldog clamp was removed from the mammary. Temporary bipolar ventricular pacing wires were
placed on the base of the right ventricle. The patient was placed in a Trendelenburg position and flows on bypass were lowered. The aortic cross clamp was removed and flows were slowly brought back up. All bypass grafts were inspected and were free
from kinking or twisting. The distal and proximal anastomoses appeared hemostatic. Once transesophageal echocardiography appeared satisfactory for de-airing, the flows were temporarily lowered for root vent removal. After verifying acceptable
parameters, we initiated weaning from cardiopulmonary bypass. Once we were off cardiopulmonary bypass, the venous cannula was clamped and removed. A test dose of protamine was administered and the patient was monitored for any adverse reaction
before resuming protamine. Once half of the protamine dose was delivered, pump suckers were turned off and the systolic blood pressure was lowered for aortic decannulation. The aortic cannula was removed and pursestrings were tied down. All
cannulation sites were oversewn with a 4-0 prolene. The mammary bed was inspected and hemostasis was confirmed. Once the mediastinum was hemostatic, 19Fr Broderick drain was placed in the left pleural cavity and two 24Fr Broderick drains were placed within
the pericardium. The sternum was approximated with 4 #7 single and 2 #8 double stainless steel wires and a single plate towards the lower portion of the sternum. Fascia was approximated with #1 vicryl suture. The subcutaneous, dermis and epidermis
were closed in layers in a running fashion. The skin wound was cleansed and dressed.
All instrument, sponge, and needle counts were confirmed to be correct x 2 at the end of the operation. The patient was transferred to the cardiac intensive care unit in critical but stable condition.
I, Dr. Santy Naylor, was present, scrubbed for, and performed all critical elements of this procedure.
Santy Naylor MD, MS
Cardiothoracic Surgeon
[facility] [address]
This operative dictation was created using the [employer] dictation system. Please excuse any grammatical, typographical, or 'sound alike' errors
--- NOTE | 2024-06-30 11:34 | CON.INTV ---
Consultation
Consultation Request
Date/Time Consultation Requested: 06/30/2024 - 1105
Date/Time Consultation Performed: 06/30/2024 - 1130
Requesting Provider: Maurilio Mcrae PA-C
Performing Provider: Dr. Hanley
Reason for Consultation: s/p CABG x4
Medical History
-
Chief Complaint: Chest pain/shortness of breath
History of Present Illness:
64-year-old male with a past medical history of CAD with history of multiple stents, hypertension, hyperlipidemia, DM type II, history of carcinoid tumor in the left lung s/p left lower lobectomy, former tobacco smoker, history of alcohol + illicit
drug use, anxiety/depression, bipolar disorder�who initially presented with chest pain + shortness of breath. He initially went to [facility] after developing left-sided chest pain with shortness of breath with activity. Found to have
elevated troponin of 204 and was diagnosed with an NSTEMI. He was started on heparin drip + nitroglycerin drip. Also given aspirin + Plavix. He had a subsequent left heart catheterization showing multivessel CAD, and transferred here to
[facility] for further evaluation. PFT was performed on 06/23/2024 showing a moderate-severity persistent obstructive lung defect with a mild-moderate restrictive lung defect, negative bronchodilator response, and normal gas exchange
capacity (DLco: 99%). Cardiothoracic surgery was consulted and plan was for surgical revascularization after Plavix washout. Today, patient underwent CABG x 4 with a left atrial appendage exclusion with a 40 mm clip. Intraoperative MIKHAIL showed
normal biventricular function with no regional WMA seen, with no thrombus or mass seen in the left atrial appendage and initially there was a degree of SAUMYA with mild�moderate MR which gradually improved to trivial�mild MR and SAUMYA resolved. Patient
transferred to the CVICU postoperatively and wrapper stemmer hand services consulted for additional management/recommendations.
When I saw the patient he was in bed, intubated on SIMV at 14/500/40%/5, with PIP: 19 cmH2O, VTe 440 cc and breathing at 14 breaths/min. Patient's , Yuki, and sister, Nyla, were both at bedside. All questions were answered. Patient's
heart rate is 70, BP via right radial A-line: 97/51, and saturating 96%. He is currently on Cardizem drip at 2.5mgr/hr, insulin drip at 3.5 units/hr and also on Precedex at 0.3 mcg/kg/hr. He has left a left pleural chest tube x 1 + mediastinal
chest tubes x 2.
PMHx: CAD with history of multiple stents, hypertension, hyperlipidemia, DM type II, depression, anxiety, bipolar disorder, BOWEN, carcinoid tumor of the left lung s/p left lower lobe lobectomy, former tobacco smoker, history of alcohol abuse, prior
illicit drug use (crack cocaine, meth, speed)
PSHx: History of cervical + lumbar laminectomy, multiple cardiac catheterizations in 1998, 1999, 2002+2017, left lower lobe lobectomy
Past Medical History
Past Medical History: Other (Above as per HPI)
Past Surgical History: Other (Above as per HPI)
Social History
Tobacco: Former Smoker (Quit smoking cigarettes 20 years ago)
Alcohol: Former (Quit drinking alcohol 12 years ago)
Drug: Other (Former use of nasal crack cocaine, nasal meth and nasal speed, quit 12 years ago)
Family History
Family History: CAD (Father), Cancer (Father (unknown type)), Diabetes (Father + mother) and Hypertension (Father + mother)
Allergies / Home Medications
Allergies
Allergy/AdvReac Type Severity Reaction Status Date / Time
No Known Allergies Allergy Unverified 06/22/24 17:47
Home Medications
�Medication �Instructions �Recorded �Confirmed �Last Taken �Type
ascorbic acid (vitamin C) 500 mg 500 mg PO BID 06/22/24 06/22/24 06/21/24 History
tablet (Vitamin C)
aspirin 81 mg tablet 81 mg PO DAILY 06/22/24 06/22/24 06/21/24 History
atorvastatin 80 mg tablet 80 mg PO DAILY 06/22/24 06/22/24 06/21/24 History
carvedilol 6.25 mg tablet 6.25 mg PO Q12H 06/22/24 06/22/24 06/21/24 History
cholecalciferol (vitamin D3) 50 50 mcg PO DAILY 06/22/24 06/22/24 Unknown History
mcg (2,000 unit) capsule (Vitamin
D3)
clonazepam 1 mg tablet 3 mg PO DAILY 06/22/24 06/22/24 06/21/24 History
clopidogrel 75 mg tablet 75 mg PO DAILY 06/22/24 06/22/24 06/21/24 History
diltiazem HCl 300 mg 300 mg PO DAILY 06/22/24 06/22/24 06/21/24 History
tablet,extended release 24 hr
duloxetine 60 mg capsule,delayed 60 mg PO DAILY 06/22/24 06/22/24 06/21/24 History
release (Cymbalta)
ezetimibe 10 mg tablet (Zetia) 10 mg PO DAILY 06/22/24 06/22/24 06/21/24 History
gabapentin 100 mg capsule 100 mg PO HS 06/22/24 06/22/24 06/22/24 History
losartan 100 mg tablet 100 mg PO DAILY 06/22/24 06/22/24 06/21/24 History
metformin 500 mg tablet 500 mg PO BID 06/22/24 06/22/24 06/21/24 History
multivitamin 1 tab PO DAILY 06/22/24 06/22/24 06/21/24 History
pantoprazole 40 mg tablet,delayed 40 mg PO DAILY 06/22/24 06/22/24 06/21/24 History
release
semaglutide 1 mg/dose (2 mg/1.5 1 mg SC QWEEK 06/22/24 06/22/24 06/19/24 History
mL) subcutaneous pen injector
turmeric See Rx Instructions .Route .COMPLEX 06/22/24 06/22/24 Unknown History
Review of Systems
-
Unable to Obtain full review of systems at this time due to: Patient Intubation
Vitals / Labs / Diagnostic Testing
Vital Signs
Temp Pulse Resp BP Pulse Ox
97.7 F 79 11 126/80 99
06/30/24 15:00 06/30/24 17:00 06/30/24 17:00 06/30/24 05:45 06/30/24 17:00
Lab Data
06/30/24 15:58
06/30/24 12:21
Laboratory Results
06/29/24 06/30/24 06/30/24
16:32 01:11 12:21
PT 16.5 H
INR 1.30
APTT 63.1 H 146.8 H 33.4
pH 7.37
pCO2 46
pO2 97
HCO3 26.6
O2 Delivery Level
06/30/24
15:58
PT
INR
APTT
pH 7.39
pCO2 42
pO2 156 H
HCO3 25.4
O2 Delivery Level
Diagnostic Testing:
Physical Exam
-
HEENT: Normocephalic, Anicteric and Other (ETT in place)
Cardiovascular: S1/S2 and Peripheral Edema (negative)
Respiratory: Wheeze (negative), Rales (negative), Rhonchi (negative), Non-Labored Respirations, Other (Mechanical breath sounds heard bilaterally) and Other (Chest tubes: left pleural + mediastinal chest tubes x 2)
GI: Soft, Non Distended, Non Tender and Normal Bowel Sounds
Neurology: Tremors (negative) and Other (Sedated)
Skin: Warm and Dry
General: Respiratory Distress (negative), Comfortable, Fever (negative) and Chills (negative)
Assessment
-
Assessment: 64-year-old male with a past medical history of CAD with history of multiple stents, hypertension, hyperlipidemia, DM type II, history of carcinoid tumor in the left lung s/p left lower lobectomy, former tobacco smoker, history of
alcohol + illicit drug use, anxiety/depression, bipolar disorder�who initially presented with chest pain + shortness of breath. He initially went to [facility] after developing left-sided chest pain with shortness of breath with
activity. Found to have elevated troponin of 204 and was diagnosed with an NSTEMI. He was started on heparin drip + nitroglycerin drip. Also given aspirin + Plavix. He had a subsequent left heart catheterization showing multivessel CAD, and
transferred here to [facility] for further evaluation. PFT was performed on 06/23/2024 showing a moderate-severity persistent obstructive lung defect with a mild-moderate restrictive lung defect, negative bronchodilator response, and normal
gas exchange capacity (DLco: 99%). Cardiothoracic surgery was consulted and plan was for surgical revascularization after Plavix washout. Today, patient underwent CABG x 4 with a left atrial appendage exclusion with a 40 mm clip. Intraoperative
MIKHAIL showed normal biventricular function with no regional WMA seen, with no thrombus or mass seen in the left atrial appendage and initially there was a degree of SAUMYA with mild�moderate MR which gradually improved to trivial�mild MR and SAUMYA
resolved. Patient transferred to the CVICU postoperatively and wrapper stemmer hand services consulted for additional management/recommendations.
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
alcohol abuse, prior illicit drug use (crack cocaine, meth, speed)
Impression:
#NSTEMI with multivessel CAD s/p CABG x 4+ left atrial appendage exclusion (POD #0)
#Acute anemia due to above
#Prediabetes (HbA1c: 6.1 on 06/23/2024)
#Moderate persistent obstructive lung disease with mild as moderate restrictive lung disease and normal gas exchange capacity (via PFTs from 06/23/2024)
#DM type II
#Depression/anxiety with history of bipolar disorder
#History of BOWEN
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
#Former tobacco smoker (Quit smoking cigarettes 20 years ago)
#History of alcohol + illicit drug abuse (quit 12 years ago)
Plan:
Ventilator settings reviewed
FiO2 will be weaned to maintain SpO2 >90-94%
Minute ventilation will be adjusted
Arterial blood gases will be monitored
Spontaneous breathing trial will be attempted with hopeful extubation after anesthesia/sedation wear off
prn nebulized bronchodilators � not currently bronchospastic
Given his moderate persistent obstructive lung disease with restriction seen on PFTs from 06/23/2024, recommend outpatient pulmonary office visit. This will be arranged
Pulmonary artery catheter parameters will be followed
Pressors/antihypertensive/inotropes/diuretics will be provided as needed
Maintain MAP>65
Replete electrolytes with K>4, Mg>2
Monitor chest tube output (left pleural + mediastinal chest tubes x 2)
Monitor hemoglobin
Monitor platelet count and coags
Transfuse blood products as needed to maintain Hb>7g/dL, plt>50k (given post-operative status)
CT surgery managing chest tubes
Monitor blood sugar to maintain euglycemia with goal BG 140-180
Insulin drip per protocol
Aspiration precautions
VAP prevention protocol
DVT prophylaxis
Early nutrition
Early mobilization
Critical care statement: A total of 41 minutes of critical care time was provided for this patient today. This includes management of ventilator, spontaneous breathing trial, arterial blood gases, pressors, of unstable vital signs, evaluation of the
patient at bedside, reviewing the patient's pertinent medical records including radiographs, microbiology, laboratory evaluations, and discussion with primary team and critical care nursing.
[2024-06-30 12:21] LABS: Glucose - Point of Care 143 mg/dl (70-99)
[2024-06-30 12:32] LABS: B.E. 0.9 mmol/L; HCO3 26.6 mmol/L (21-28); Ionized Calcium 1.27 mMOL/L (1.15-1.33); O2 Saturation % 98.4 % (94-98); PCO2 46 mmHg (35-48); PO2 97 mmHg (83-108); Potassium 4.5 mMOL/L (3.5-5.1); Sodium 133 mMOL/L (136-145); pH 7.37 (7.35-7.45)
[2024-06-30 12:42] LABS: PT 16.5 Sec (11.4-14.6)
[2024-06-30 12:43] LABS: APTT 33.4 Sec (23.4-35.0)
[2024-06-30 12:46] LABS: Blood Urea Nitrogen 17 mg/dl (9-20); Estimated Creatinine Clearance 109 ml/min; Glucose 147 mg/dl (70-99); Magnesium 2.8 mg/dl (1.6-2.3)
[2024-06-30 12:52] LABS: Hematocrit 35.5 % (39.0-52.0); Hemoglobin 12.2 g/dL (13.0-18.0); Platelet Count 178 10^3/uL (130-400)
--- NOTE | 2024-06-30 13:21 | PN.DE.MGMTRT ---
Insulin Management
- -
06/30/24 Diabetes Management Consult
Patient transferred from [facility] 06/22, was admitted [facility] for cp had cardiac cath. PMH obstructive CAD, [place] 99 stents 1999, HTN, HLD, diabetes, depression anxiety, BOWEN, L lung CA with lobectomy. Prior to admission was taking metformin 500 mg BID with
Ozempic weekly. A1C on admission 6.1%, cr .6, eGFR > 60.
Patient is in the OR at the time of my visit. Patient to be started on glycemic insulin infusion. Will follow
Diabetes History
- -
Pre-Admission Diabetes Regimen
06/30/24 06/30/24
01:11 12:21
Creatinine 0.6 L 0.7
Lab Results
Hemoglobin A1c 6.1 % (4.0-5.6) H 06/23/24 03:20
Insulin Pump Settings
IP Diabetes Regimen
06/29/24 06/29/24 06/30/24
16:45 21:01 01:11
Glucose 125 H
POC Glucose 122 H 138 H
06/30/24 06/30/24
12:20 12:21
Glucose 147 H
POC Glucose 143 H
Patient Education
[2024-06-30 13:37] LABS: Glucose - Point of Care 160 mg/dl (70-99)
[2024-06-30 14:35] LABS: Glucose - Point of Care 157 mg/dl (70-99)
--- NOTE | 2024-06-30 14:39 | W.PN.CD ---
Today's Communication / Plan
-
s/p multivessel CABG
continue ASA, Plavix, BB, statin
Resume other antihypertensives once able
Impression / Plan
-
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
disorder who developed left-sided chest pain at rest 06/18/2024 with associated DELGADILLO -> LHC at [facility] showed MVCAD. Transferred to now s/p CABG 06/30/24.
Primary fire technician: Dr. Jiang ([facility])
CAD s/p CABG
-Multi arterial coronary artery bypass grafting x 4 (In situ SEVILLA to LAD, Ao to left radial artery to ramus sequential to OM, Ao to RSVG to RPDA) + Left atrial appendage exclusion [40 mm clip] on 06/30
-Intra-op MIKHAIL with LVEF 60% and no RWMA; post-op MIKHAIL EF 65-70%
-Continue aspirin, Plavix, BB and statin
-CCB per cardiac surgery for radial artery grafts
-Post-op ECG stable
First degree AV block
-Stable on post-op ECG
Hypertension stable
-cont metoprolol
-home regimen includes diltiazem, carvedilol, and losartan. Resume as tolerated
NIDDM, with hyperglycemia, not requiring insulin
HLD
-On atorvastatin 80 mg with Zetia, LDL 61, ideally should be under 55
-Consider addition of PCSK9i as outpatient
BOWEN, LFTs and INR stable
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
Prior tobacco abuse
ETOH abuse, in recovery for 12 years
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
Subjective:
Intubated and sedated at time of my assessment. Nods/shakes his head appropriately to yes/no questions. On Cardizem drip because of radial grafts. Otherwise no infusions.
Physical Exam
Vital Signs/Labs
Vital Signs
Temp Pulse Resp BP Pulse Ox
96.5 F L 72 14 126/80 96
06/30/24 14:03 06/30/24 14:03 06/30/24 14:03 06/30/24 05:45 06/30/24 14:03
06/29/24 06/30/24 07/01/24
06:59 06:59 06:59
Actual Weight 95.1 kg 93.3 kg
06/30/24 12:21
PT 16.5 Sec (11.4-14.6) H 06/30/24 12:21
INR 1.30 06/30/24 12:21
APTT 33.4 Sec (23.4-35.0) 06/30/24 12:21
Magnesium 2.8 mg/dl (1.6-2.3) H 06/30/24 12:21
Triglycerides 103 mg/dl (10-149) 06/22/24 18:21
LDL Cholesterol, Calc 61 mg/dl 06/22/24 18:21
VLDL Cholesterol, Calc 20 mg/dl (0-30) 06/22/24 18:21
HDL Cholesterol 46 mg/dl 06/22/24 18:21
Physical Exam
Constitutional: Comfortable
Cardiovascular: Rhythm & rate is regular, Pedal edema is absent, S1S2 is normal and Murmur/rub/gallop absent
Respiratory: Other (intubated, normal respiratory effort)
GI: Flat and Non tender
Other: Other (chest tubes and sternal with no purulence or erythema)
Data Reviewed
-
Date of Service: June 30, 2024
Medical Decision Making: Reviewed Test Results, Independent Historian Assessment, Test Interpretation and Review of Case with other Provider
EKG: Tracing Personally Visualized and interpreted
Echo: Report Reviewed by me
Labs: Labs Reviewed by me
--- NOTE | 2024-06-30 15:22 | PTCARENOTE ---
received patient from [facility]. sedated and placed on vent by ARCHEOLOGY PROFESSOR. usual lines, no swan CTx3 placed to -20 wall suction. no air leaks/crepitus. bowel sounds hypoactive. michael draining clear yellow. pulses palpable. no edema. all surgival sites c/d/i.
out on levo, precedex, insulin and cardizem for his radial graft. will continue to monitor.
[2024-06-30 15:38] LABS: Glucose - Point of Care 114 mg/dl (70-99)
[2024-06-30] MEDS: CYMBALTA DELAYED RELEASE PO (15:47)
[2024-06-30] MEDS: NSS 500 IV (15:48)
[2024-06-30] MEDS: NOVOLOG FLEXPEN SC ×2 (15:49→17:21)
[2024-06-30] MEDS: TYLENOL PO ×2 (15:50→22:14)
[2024-06-30] MEDS: PACERONE PO (15:50)
[2024-06-30] MEDS: NEURONTIN PO (15:50)
[2024-06-30] MEDS: TORADOL IV (15:53)
[2024-06-30] MEDS: ZETIA PO (15:54)
[2024-06-30] MEDS: LOW STRENGTH ASPIRIN PO (15:54)
[2024-06-30] MEDS: PROTONIX PO (15:54)
[2024-06-30 16:06] LABS: B.E. 0.3 mmol/L; HCO3 25.4 mmol/L (21-28); Ionized Calcium 1.22 mMOL/L (1.15-1.33); O2 Saturation % 99.1 % (94-98); PCO2 42 mmHg (35-48); PO2 156 mmHg (83-108); Potassium 4.4 mMOL/L (3.5-5.1); pH 7.39 (7.35-7.45)
[2024-06-30 16:10] LABS: Hematocrit 36.4 % (39.0-52.0); Hemoglobin 12.7 g/dL (13.0-18.0); Platelet Count 211 10^3/uL (130-400)
--- NOTE | 2024-06-30 16:27 | RESPNOTE ---
16:20 patient extubated and placed on 6L N[place]. 98%
--- NOTE | 2024-06-30 16:31 | W.PN.UPDATE ---
Update Note
Progress Note Update
Crystalloid:� 1400
U.O.:� 750
UF:� 1000
Blood:� None
Wires:� V wire
Inotropes:� None
Pressors:� Levo
Sedatives:� Precedex
�
NEURO: sedated on precedex, pupils +Xmm B/L
RESP: #8OT @25cm> 500/60%/14/5. Lungs clear B/L. 2 mediastinal (20cc on arrival) and R/L pleural (10cc on arrival) chest tubes to -20cm suction. Sanguineous drainage
CV: RRR +S1, S2, no S3, no�rub, no murmur. Dermabond to median sternotomy. RIJ w/slicc
ABD: round, soft, no BS
EXT: no edema, +2/4 DP pulses B/L, no femoral bruit, RLE KEYUR wrap intact; right radial A-line intact
: Ansari with clear yellow urine
�
A/P: POD #0 s/p CABG x 4 (SEVILLA-LAD, Jvabch-Njydu-AJ, SVG- RPDA)
MIKHAIL: EF�70-75%
- wean and extubate
- Monitor CT and urine output
- Follow up labs and CXR
- Wean levophed for maps >65
- Will start ASA tonight
- EKG pending and will send to cards
- Cards consulted
�
# acute surgical blood loss anemia-expected
- trend CBC
�
# T2DM (A1C 6.1)
- insulin infusion x 48h
- resume oral agents when able
�
# Hyperlipidemia
- resume�statin when tolerating PO
#Anxiety/Depression
- Resume cymbalta and clonazepam
[2024-06-30] MEDS: TORADOL 15 MG IV ×2 (17:20→23:18)
[2024-06-30 17:57] LABS: Glucose - Point of Care 103 mg/dl (70-99)
[2024-06-30] MEDS: LOW STRENGTH ASPIRIN 81 MG PO (18:52)
--- NOTE | 2024-06-30 19:00 | PTCARENOTE ---
assumed care of patient @ 1900. pt recieved laying in bed, Aox3. Drowsy postop, responds to verbal commands easily. low grade temp 99. NSR with 1st degree AVB. + L ulnar pulse. V wire set to backup, not plugged in. Lungs clear, diminished on 3L. CT
x3 L plr and Med x2 to suction no air leak, tidaling or crepitus noted. Absent BS. Ansari draining clear yellow urine. L radial site El wrapped, R leg wrapped, MSI DAMION with glue, R groin site with glue. R IJ cordis with SLIC, R hand , R wrist PIV
intact. cardizem at 2.5 and insulin per protocol
[2024-06-30] MEDS: ANCEF 5 IV (19:56)
[2024-06-30 20:07] LABS: Glucose - Point of Care 120 mg/dl (70-99)
[2024-06-30] MEDS: SENOKOT-S PO (20:23)
[2024-06-30] MEDS: OFIRMEV 100 IV (20:23)
[2024-06-30] MEDS: ROXICODONE 5 MG PO (20:33)
[2024-06-30] MEDS: LIPITOR PO (22:14)
[2024-06-30] MEDS: NEURONTIN 300 MG PO (22:14)
[2024-06-30] MEDS: PACERONE 200 MG PO (22:14)
[2024-06-30 22:17] LABS: Glucose - Point of Care 95 mg/dl (70-99)
[2024-07-01] VITALS (29 sets, daily range): BP systolic 98–178; BP diastolic 59–156; PULSE 82; O2SAT 93–96; BMI 29.9
[2024-07-01 00:08] LABS: Glucose - Point of Care 135 mg/dl (70-99)
--- NOTE | 2024-07-01 00:30 | PTCARENOTE ---
pain meds given see jul. Juan increase to 5 per CTPA, nitro also started for hypertension. no other change in assessment , call anglin within reach .
--- NOTE | 2024-07-01 00:45 | W.PN.CT ---
Today's Communication / Plan
-
-pod #1
-no significant issues overnight
-drips: Cardizem 10 for radial graft and htn, Nitro 60, Insulin
-CT outputs: 2 meds 130/230, L pleur 45/65 in 12/24 hrs
-got Albuterol neb for wheezing this am
-gave 5mg po Norvasc @ 6am with plans to d/c iv Cardizem after 7 am
-hypertensive - gave 5 iv Hydralazine this am
-deline
-continue insulin
-d/c Ansari
-current meds (ASA, Plavix, Lipitor, Lopressor, Amio, Norvasc for radial graft, Protonix, Cymbalta)
-encourage IS, OOB
Assessment / Plan
-
-mv CAD - s/p CABG x 4 (In situ SEVILLA to LAD, Ao to left radial artery to ramus sequential to OM, Ao to RSVG to RPDA); Left atrial appendage exclusion [40 mm clip] by Dr. Naylor on 06/30/24, pod #1
-Intraop MIKHAIL: LVEF preop was 60% with no significant regional wall motion abnormalities. Following surgery his EF remained the same and slightly hyperdynamic until volume was given back to him. His EF was probably 65 to 70% during which time he
had mild dynamic systolic anterior motion of the leaflets with mild to moderate mitral valve insufficiency. Afterload was increased and volume was given, this resolved the mitral valve insufficiency to trace with no SAUMYA recurring. His left atrial
appendage was verified to be free of any thrombus or debris preoperatively and found to be totally occlusive postoperatively with a 40 mm device applied flush to the base.
-brief period of VVI pacing while he was junctional at which point he regained a sinus rhythm.
-Multivessel CAD, transferred from [facility] for CABG evaluation
-NSTEMI
-Plavix washout, last dose 06/22
-CAD s/p VA 1998
-PCI w/ stent to LAD 1998
-S/P PCI with stent to RCA 1999
-S/P PCI with stent to OM 2002
-S/P PCI with FLAKO to LAD/Diag 2017
-HTN/HLD
-NIDDMII, on metformin
-Depression
-Anxiety
-BOWEN, Liver dz
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
-Former cigarette smoker (quit abusing street drugs 12 years ago
-Former illicit drug use (nasal crack cocaine, nasal mask, nasal speed)
-Prior alcohol abuse
-History of cervical and lumbar laminectomy
-S/p Cervical and lumbar laminectomy and fusion
-S/P Left lower lobectomy (benign tumor)
-Acute postop blood loss anemia - stable, no acute bleed, no transfusion
-Acute postop atelectasis
-Acute postop hypovolemia with subsequent hypervolemia
-Suspected acute postop pericarditis on ECG/+ rub
Discussed patient care with: Nursing and Care Team
Subjective
-
Date of Service: July 01, 2024
Objective Data
-
PT 16.5 Sec (11.4-14.6) H 06/30/24 12:21
INR 1.30 06/30/24 12:21
APTT 33.4 Sec (23.4-35.0) 06/30/24 12:21
Vital Signs
Vital Signs
Temp Pulse Resp BP Pulse Ox
99.2 F 74 18 101/61 96
07/01/24 00:00 07/01/24 00:30 07/01/24 00:30 07/01/24 00:00 07/01/24 00:30
CT Intake/Output/Weight
06/30/24 06/30/24 07/01/24
06:59 18:59 06:59
Intake Total 480 / 1440 239.2 / 343.9 104.7 / 343.9
Output Total 805 / 1075 270 / 1075
Balance 480 / 1440 -565.8 / -731.1 -165.3 / -731.1
SaO2: 96
Physical Exam
-
General: Awake and AOx3
Cardiovascular: Regular rate & rhythm, No Murmurs and Rub (loud)
Respiratory: Decreased Breath Sounds
Sternum: Stable
Incision: Clean, Dry and Intact
Extremities: No Edema (2+ DPs and PTs b/l)
Abdomen: soft, nontender, nondistended, + decreased bowel sounds
Data Reviewed
-
Lab Results: Results Reviewed
Medications: Active Meds Reviewed
Chest X-Ray: Report Reviewed and Image Reviewed
ECG: Report Reviewed and Image Reviewed
[2024-07-01 02:08] LABS: Glucose - Point of Care 96 mg/dl (70-99)
[2024-07-01 02:09] LABS: Hematocrit 36.9 % (39.0-52.0); Hemoglobin 12.6 g/dL (13.0-18.0); Mean Corp Hgb Conc. 34.1 g/dL (33.0-37.0); Mean Corpuscular Hgb 29.4 pg (27.0-31.0); Mean Corpuscular Volume 86.2 fL (80.0-94.0); Mean Platelet Volume 10.5 fL (7.4-10.4); Platelet Count 225 10^3/uL (130-400); Red Blood Cell Count 4.28 10^6/uL (4.70-6.10); Red Cell Dist. Width 13.2 % (11.5-14.5); White Blood Cell Count 18.6 10^3/uL (4.8-10.8)
[2024-07-01 02:22] LABS: Blood Urea Nitrogen 25 mg/dl (9-20); Calcium 9.1 mg/dl (8.4-10.2); Carbon Dioxide 24 mmol/L (22-30); Chloride 105 mmol/L (98-107); Estimated Creatinine Clearance 109 ml/min; Glucose 114 mg/dl (70-99); Magnesium 2.3 mg/dl (1.6-2.3); Potassium 4.4 mmol/L (3.5-5.1); Sodium 138 mmol/L (135-145); eGFR > 60.00
[2024-07-01] MEDS: ROXICODONE 5 MG PO ×4 (02:27→20:01)
[2024-07-01] MEDS: DILAUDID 0.25 MG IV (03:28)
[2024-07-01] MEDS: VENTOLIN NEBULES 2.5 MG INH ×2 (03:39→21:07)
[2024-07-01 04:07] LABS: Glucose - Point of Care 139 mg/dl (70-99)
--- NOTE | 2024-07-01 04:11 | PTCARENOTE ---
labs drawn and sent. washed with CHG. pain meds given. SLIC removed per order. Keeping A line for now. hypertensive, titrating drips per CTPAs reccomendation see flowsheet.
[2024-07-01] MEDS: ANCEF 5 IV ×2 (04:13→11:27)
[2024-07-01] MEDS: APRESOLINE 5 MG IV (05:05)
[2024-07-01] MEDS: TYLENOL 1000 MG PO ×3 (06:04→21:25)
[2024-07-01 06:19] LABS: Glucose - Point of Care 136 mg/dl (70-99)
[2024-07-01] MEDS: NORVASC 5 MG PO (06:24)
--- NOTE | 2024-07-01 07:13 | PTCARENOTE ---
slic removed per order. CTPA wants michael and A line to stay. PT assisted up OOB to chair with steady gait. report given to violet
--- NOTE | 2024-07-01 07:32 | PN.DE.MGMTRT ---
Insulin Management
- -
07/01/24 Diabetes Management Consult Follow up
Patient transferred from [facility] 06/22, was admitted [facility] for cp had cardiac cath. PMH obstructive CAD, [place] 99 stents 1999, HTN, HLD, diabetes, depression anxiety, BOWEN, L lung CA with lobectomy. Prior to admission was taking metformin 500 mg BID with
Ozempic weekly. A1C on admission 6.1%, cr .6, eGFR > 60.
POD 1 s/p CABG x 4. Awake alert and oriented able to discuss diabetes care.
Glucose range 157 to 96 requiring .8 to 3.5 units of insulin per hour. Will continue glycemic protocol today and assess in AM for readiness to transition off of insulin infusion.
Will follow
Diabetes History
- -
Type of Diabetes: 2
Pre-Admission Diabetes Regimen
06/30/24 07/01/24
12:21 02:02
Creatinine 0.7 0.7
Lab Results
Hemoglobin A1c 6.1 % (4.0-5.6) H 06/23/24 03:20
Insulin Pump Settings
IP Diabetes Regimen
06/30/24 06/30/24 06/30/24
12:20 12:21 13:35
Glucose 147 H
POC Glucose 143 H 160 H
06/30/24 06/30/24 06/30/24
14:34 15:36 17:56
Glucose
POC Glucose 157 H 114 H 103 H
06/30/24 06/30/24 07/01/24
20:06 22:09 00:07
Glucose
POC Glucose 120 H 95 135 H
07/01/24 07/01/24 07/01/24
02:02 02:07 04:04
Glucose 114 H
POC Glucose 96 139 H
07/01/24
06:18
Glucose
POC Glucose 136 H
Patient Education
--- NOTE | 2024-07-01 08:00 | PTCARENOTE ---
Resumed care of patient from previous RN. Walking rounds done. Assisted patient oob and weighed. patient placed in chair. tolerated transfer. AAox3. NSR with 1st degree AVB. HR 90s. V wire insulated. 97% 2L nc. will wean as tolerated. Lungs
diminished. L lower lobe absent. CT x3 to -20 wall suction. L plr and Med x2. no air leak, tidaling or crepitus noted. hypoactive. Ansari draining clear yellow urine. L radial and R leg El wrapped. removed. all surgical procedures c/d/i. R IJ
cordis, PIVx2 patent. insulin per protocol infusing. morning meds given. Cardizem decreased back to 2.5mg. Will d/c A line and Ansari as ordered as well as L pleural CT. will continue to monitor.
[2024-07-01 08:12] LABS: Glucose - Point of Care 139 mg/dl (70-99)
[2024-07-01] MEDS: BACTROBAN 2% OINTMENT 1 APPLIC NASAL ×2 (08:14→20:00)
[2024-07-01] MEDS: NOVOLOG FLEXPEN 4 UNITS SC ×2 (08:15→12:21)
[2024-07-01] MEDS: NSS IV (08:19)
[2024-07-01] MEDS: LIDOCAINE 4% PATCH 1 PATCH TOPICAL (08:25)
[2024-07-01] MEDS: CYMBALTA DELAYED RELEASE 60 MG PO (08:26)
[2024-07-01] MEDS: NEURONTIN 300 MG PO ×3 (08:26→21:25)
[2024-07-01] MEDS: LOPRESSOR 12.5 MG PO (08:26)
[2024-07-01] MEDS: LOW STRENGTH ASPIRIN 81 MG PO (08:26)
[2024-07-01] MEDS: PROTONIX 40 MG PO (08:27)
[2024-07-01] MEDS: SENOKOT-S 1 TABLET PO ×2 (08:27→20:01)
[2024-07-01] MEDS: MAGNESIUM OXIDE 500 MG PO ×2 (08:27→20:00)
[2024-07-01] MEDS: PLAVIX 75 MG PO (08:27)
[2024-07-01] MEDS: PACERONE 200 MG PO ×3 (08:27→21:24)
--- NOTE | 2024-07-01 08:27 | W.PN.INTV ---
Today's Communication / Plan
Recommendations
Up OOB
Encouraged incentive spirometer
Cardiac rehab consult
Continue insulin drip with goal BG 140�180
Outpatient pulmonary evaluation given moderate persistent obstructive lung defect seen on PFTs from 06/23/2024
Continue CVICU level of care while on insulin drip. Once weaned off insulin drip and downgraded to CVICU�telemetry status, then we will sign off at that time.
Assessment
-
Assessment: 64-year-old male with a past medical history of CAD with history of multiple stents, hypertension, hyperlipidemia, DM type II, history of carcinoid tumor in the left lung s/p left lower lobectomy, former tobacco smoker, history of
alcohol + illicit drug use, anxiety/depression, bipolar disorder�who initially presented with chest pain + shortness of breath. He initially went to [facility] after developing left-sided chest pain with shortness of breath with
activity. Found to have elevated troponin of 204 and was diagnosed with an NSTEMI. He was started on heparin drip + nitroglycerin drip. Also given aspirin + Plavix. He had a subsequent left heart catheterization showing multivessel CAD, and
transferred here to [facility] for further evaluation. PFT was performed on 06/23/2024 showing a moderate-severity persistent obstructive lung defect with a mild-moderate restrictive lung defect, negative bronchodilator response, and normal
gas exchange capacity (DLco: 99%). Cardiothoracic surgery was consulted and plan was for surgical revascularization after Plavix washout. Today, patient underwent CABG x 4 with a left atrial appendage exclusion with a 40 mm clip. Intraoperative
MIKHAIL showed normal biventricular function with no regional WMA seen, with no thrombus or mass seen in the left atrial appendage and initially there was a degree of SAUMYA with mild�moderate MR which gradually improved to trivial�mild MR and SAUMYA
resolved. Patient transferred to the CVICU postoperatively and clerical support services consulted for additional management/recommendations.
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
alcohol abuse, prior illicit drug use (crack cocaine, meth, speed)
Impression:
#NSTEMI with multivessel CAD s/p CABG x 4+ left atrial appendage exclusion (POD #1)
#Acute anemia due to above
#Prediabetes (HbA1c: 6.1 on 06/23/2024)
#Moderate persistent obstructive lung disease with mild as moderate restrictive lung disease and normal gas exchange capacity (via PFTs from 06/23/2024)
#DM type II
#Depression/anxiety with history of bipolar disorder
#History of BOWEN
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
#Former tobacco smoker (Quit smoking cigarettes 20 years ago)
#History of alcohol + illicit drug abuse (quit 12 years ago)
Plan:
Patient was extubated to nasal cannula on 06/30/2024 and is currently on room air breathing comfortably and saturating 93%
Maintain SpO2 >90-94%
prn nebulized bronchodilators � not currently bronchospastic
Encourage incentive spirometer use
Given his moderate persistent obstructive lung disease with restriction seen on PFTs from 06/23/2024, recommend outpatient pulmonary office visit. This will be arranged
Pressors/antihypertensive/inotropes/diuretics will be provided as needed
Maintain MAP>65
Replete electrolytes with K>4, Mg>2
Monitor chest tube output (left pleural + mediastinal chest tubes x 2)
Monitor hemoglobin
Monitor platelet count and coags
Transfuse blood products as needed to maintain Hb>7g/dL, plt>50k (given post-operative status)
CT surgery managing chest tubes
Monitor blood sugar to maintain euglycemia with goal BG 140-180
Insulin drip per protocol
Aspiration precautions
VAP prevention protocol
DVT prophylaxis
Early nutrition
Early mobilization
Continue CVICU level of care while on insulin drip. Once weaned off insulin drip and downgraded to CVICU�telemetry status, then we will sign off at that time.
Critical care statement: A total of 36 minutes of critical care time was provided for this patient today. This includes management of ventilator, spontaneous breathing trial, arterial blood gases, pressors, of unstable vital signs, evaluation of the
patient at bedside, reviewing the patient's pertinent medical records including radiographs, microbiology, laboratory evaluations, and discussion with primary team and critical care nursing.
Subjective Dataa
Subjective Data
Date of Service:
Date of Service: July 01, 2024
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
Subjective:
Patient was seen and evaluated today at bedside. Currently on insulin drip at 0.3 units/h. Heart rate 80 and BP 113/71. Mediastinal chest tubes x 2+ left pleural chest tube in place. Currently on room air breathing comfortably. Sitting on chair
on the phone in no acute distress. Denies CHAMBERLAIN, nausea, vomiting, fevers or chills.
Review of Systems
General: Other (Negative unless mentioned above)
Objective Data
Data Reviewed
Vital Signs / I&O / Oxygen:
Vital Signs
Temp Pulse Resp BP Pulse Ox
99.2 F 90 18 127/62 94
07/01/24 08:00 07/01/24 09:45 07/01/24 08:00 07/01/24 09:01 07/01/24 09:45
Intake and Output
06/30/24 07/01/24 07/02/24
06:59 06:59 06:59
Intake Total 1440 / 1440 500.7 / 500.7 15.5 / 15.5
Output Total 1365 / 1365 115 / 115
Balance 1440 / 1440 -864.3 / -864.3 -99.5 / -99.5
SaO2 94
Nasal Cannula flow liters per 2
minute
Physical Exam
General: Respiratory Distress (negative), Comfortable, Chills (negative) and Sweats (negative)
HEENT: Normocephalic and Anicteric
Cardiovascular: S1-S2 and Peripheral Edema (negative)
Respiratory: Wheeze (negative), Rhonchi (negative), Non-Labored Respirations, Stridor (negative), Chest Tube (Mediastinal chest tubes x 2+ left pleural chest tube x 1) and Other (Coarse breath sounds heard bilaterally)
GI: Soft, Non Distended, Non Tender and Normal Bowel Sounds
Neurology: AO x 3 and Tremors (negative)
Skin: Warm, Dry, Cyanosis (negative) and Jaundice (negative)
Labs/Micro/Reports
Lab Data
07/01/24 02:02
07/01/24 02:02
Laboratory Results
06/30/24 06/30/24
12:21 15:58
PT 16.5 H
INR 1.30
APTT 33.4
pH 7.37 7.39
pCO2 46 42
pO2 97 156 H
HCO3 26.6 25.4
O2 Delivery Level
--- NOTE | 2024-07-01 09:03 | W.PN.ANS.POP ---
Anesthesia Post Operative
- Anesthesia Post Op Note
Vital Signs Stable-See Nursing Note: Yes
Airway Patent: Yes
Adequate Pain Control: Yes
Change in Mental Status: No
Current Postoperative Nausea & Vomiting: No
Anesthesia Complications: No
General Anesthetic Recall: No
Unplanned Admission: No
Post Op Hydration Adequate: Yes
[2024-07-01 10:02] LABS: Glucose - Point of Care 164 mg/dl (70-99)
[2024-07-01] MEDS: ROXICODONE 2.5 MG PO (11:27)
--- NOTE | 2024-07-01 11:49 | CM ---
Reviewed chart. Met with Mr. Voss to review discharge plans. He states he is feeling well. He states prior to admission he resides with his spouse in a two story home with one step to enter. He states he has a full flight of steps to get to
bedroom/full bathroom. He states his powder room is in the basement in his family room area. He states prior to admission he was independent with ambulation and adls. He states he does not have any DME in the home. He states he has a prescription
plan and uses [facility]. He states his spouse will be home to assist in his care when he goes home. Medical work-up in progress. The discharge plan is to return home with his spouse and a home visit by the Transitional Care Nurse when
medically stable.
[2024-07-01 12:20] LABS: Glucose - Point of Care 116 mg/dl (70-99)
[2024-07-01] MEDS: NOVOLIN R INSULIN INFUSION 100 IV (13:24)
[2024-07-01 13:27] LABS: Glucose - Point of Care 187 mg/dl (70-99)
--- NOTE | 2024-07-01 13:31 | PTCARENOTE ---
d/c L Pleural CT without issue. VSS, continuing to monitor.
--- NOTE | 2024-07-01 14:23 | W.PN.CD ---
Today's Communication / Plan
-
Routine post operative management.
Incentive spirometry.
Ambulate when appropriate.
Pain/chest tube control per CT surgery.
Impression / Plan
-
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
after he developed left-sided chest pain at rest 06/18/2024 with associated DELGADILLO leading to LHC at [facility] showed MVCAD.
#CAD
-New diagnosis.
-s/p CABG x 4 (In situ SEVILLA to LAD, sequential left radial artery to ramus to OM, SSVG to RPDA) with Dr. Naylor, 06/30/2024.
-Intra-op MIKHAIL with LVEF 60% and no RWMA; post-op MIKHAIL EF 65-70%.
-Continue amiodarone, amlodipine (LRA graft), aspirin, clopidogrel, metoprolol, rosuvastatin.
-Encourage incentive spirometry.
-Ambulate when appropriate.
-Pain/chest tube management per CT surgery.
#First degree AV block
-Chronic, stable.
-S/P LAAO (#40 AtriClip) with Dr. Naylor, 06/30/2024.
#Hypertension
-Chronic, elevated.
-Currently receiving amlodipine 5 mg daily (also for LRA graft), metoprolol 12.5 mg.
-Hydralazine 5 mg IV dropped BP considerably.
-Resume home medications as tolerated (rather than hydralazine). I favor starting with 1/2 dose losartan (50 mg rather than 100 mg) and monitoring.
-Hold diltiazem in light of amlodipine.
#NIDDM
-Chronic, stable.
-Not requiring insulin.
-Resume metformin when taking PO.
-He would benefit from outpatient GLP-1 analog.
#HLD
-Chronic.
-Continue atorvastatin 80 mg with ezetimibe.
-LDL = 61, ideally should be under 55.
-Consider addition of PCSK9i as outpatient.
#BOWEN
-LFTs and INR stable.
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
#Prior tobacco abuse
#ETOH abuse, in recovery for 12 years
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
Primary perinatal technician: Dr. Jiang ([facility])
Subjective/Interval History:
Weight up 1.1 kg (93.3 --> 94.4).
SaO2 = 93% on 2LNC.
Hypertensive, dramatic improvement with hydralazine.
Physical Exam
Vital Signs/Labs
Vital Signs
Temp Pulse Resp BP Pulse Ox
37.2 C 87 18 98/59 93
07/01/24 12:00 07/01/24 13:15 07/01/24 12:00 07/01/24 12:03 07/01/24 13:15
06/30/24 07/01/24 07/02/24
11:59 11:59 11:59
Actual Weight 93.3 kg 94.4 kg
07/01/24 02:02
07/01/24 02:02
PT 16.5 Sec (11.4-14.6) H 06/30/24 12:21
INR 1.30 06/30/24 12:21
APTT 33.4 Sec (23.4-35.0) 06/30/24 12:21
Magnesium 2.3 mg/dl (1.6-2.3) 07/01/24 02:02
Triglycerides 103 mg/dl (10-149) 06/22/24 18:21
LDL Cholesterol, Calc 61 mg/dl 06/22/24 18:21
VLDL Cholesterol, Calc 20 mg/dl (0-30) 06/22/24 18:21
HDL Cholesterol 46 mg/dl 06/22/24 18:21
Physical Exam
Constitutional: No acute distress and Comfortable
EENT: Anicteric and Moist mucous membranes
Cardiovascular: Rhythm & rate is regular, Pedal edema is absent, JVD pressure is normal, S1S2 is normal and Murmur/rub/gallop absent
Respiratory: Respiratory effort normal, Lungs clear to auscul., Wheeze Absent, Crackles Absent and Rhonchi Absent
GI: Soft, Distention absent, Flat, Non tender and Normal bowel sounds
Neuro/Psych: AO x 3
Data Reviewed
-
Date of Service: July 01, 2024
Medical Decision Making: Reviewed Test Results, Independent Historian Assessment and Test Interpretation
EKG: Tracing Personally Visualized and interpreted and Report Reviewed by me
X-Ray/CT/US/MRI/NUC/PET: Image Personally Visualized and interpreted and Report Reviewed by me
Labs: Labs Reviewed by me and Labs Ordered by me
Old Records: Reviewed
[2024-07-01 14:57] LABS: Glucose - Point of Care 107 mg/dl (70-99)
[2024-07-01 16:19] LABS: Glucose - Point of Care 168 mg/dl (70-99)
[2024-07-01 18:44] LABS: Glucose - Point of Care 72 mg/dl (70-99)
[2024-07-01] MEDS: NOVOLOG FLEXPEN SC (19:03)
--- NOTE | 2024-07-01 20:00 | PTCARENOTE ---
assumed care of pt from previous RN. pt A&Ox4, resting in chair at time of assessment. c/o surgical site pain. see JUL. SR on tele-monitor. temp epicardial v-wires insulated. CTx2 (mediastinal) to -20cm wall suction, draining sanguineous drainage.
POX 93-96% on RA. abd s/n, +BS. pt due to void. flomax added by CT CUSTOMER SERVICE ADVOCATE. all surgical sites stable, CDI. R IJ cordis w/ KVO. PIV intact. see worklist for complete nursing assessment, interventions, VS, and I&Os.
[2024-07-01] MEDS: FLOMAX 0.4 MG PO (20:01)
[2024-07-01] MEDS: LOPRESSOR 25 MG PO (20:01)
[2024-07-01 20:08] LABS: Glucose - Point of Care 198 mg/dl (70-99)
[2024-07-01] MEDS: COZAAR 50 MG PO (20:32)
[2024-07-01 21:11] LABS: Glucose - Point of Care 202 mg/dl (70-99)
[2024-07-01] MEDS: LIPITOR 80 MG PO (21:25)
[2024-07-01 22:13] LABS: Glucose - Point of Care 139 mg/dl (70-99)
[2024-07-01 23:28] LABS: Glucose - Point of Care 136 mg/dl (70-99)
[2024-07-02] VITALS (26 sets, daily range): BP systolic 100–161; BP diastolic 50–78; PULSE 92; O2SAT 91–98; BMI 30.6
--- NOTE | 2024-07-02 | PTCARENOTE ---
assessment remains unchanged. POX 88-89% on RA. pt placed on 2 L NC. POX 93-94%. SR on tele-monitor.
[2024-07-02] MEDS: NSS 500 IV (00:41)
[2024-07-02 00:42] LABS: Glucose - Point of Care 106 mg/dl (70-99)
[2024-07-02 01:50] LABS: Glucose - Point of Care 103 mg/dl (70-99)
[2024-07-02] MEDS: ROXICODONE 5 MG PO ×3 (02:02→20:19)
--- NOTE | 2024-07-02 03:16 | W.PN.CT ---
Today's Communication / Plan
-
pod #2
- CT output: 55cc/12h; 125cc/24h
- DC temporary wires and mediastinal chest tube
- DC Insulin and transfer to telemetry status
- Norvasc for radial patency x 3 months
- bladder scan for 450cc, attempt to void and straight cah if unsuccessful voiding
- continue Flomax
Assessment / Plan
-
-mv CAD - s/p CABG x 4 (In situ SEVILLA to LAD, Ao to left radial artery to ramus sequential to OM, Ao to RSVG to RPDA); Left atrial appendage exclusion [40 mm clip] by Dr. Naylor on 06/30/24, pod #2
-Intraop MIKHAIL: LVEF preop was 60% with no significant regional wall motion abnormalities. Following surgery his EF remained the same and slightly hyperdynamic until volume was given back to him. His EF was probably 65 to 70% during which time he
had mild dynamic systolic anterior motion of the leaflets with mild to moderate mitral valve insufficiency. Afterload was increased and volume was given, this resolved the mitral valve insufficiency to trace with no SAUMYA recurring. His left atrial
appendage was verified to be free of any thrombus or debris preoperatively and found to be totally occlusive postoperatively with a 40 mm device applied flush to the base.
-brief period of VVI pacing while he was junctional at which point he regained a sinus rhythm.
-Multivessel CAD, transferred from [facility] for CABG evaluation
-NSTEMI
-Plavix washout, last dose 06/22
-CAD s/p UT 1998
-PCI w/ stent to LAD 1998
-S/P PCI with stent to RCA 1999
-S/P PCI with stent to OM 2002
-S/P PCI with FLAKO to LAD/Diag 2017
-HTN/HLD
-NIDDMII, on metformin
-Depression
-Anxiety
-BOWEN, Liver dz
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
-Former cigarette smoker (quit abusing street drugs 12 years ago
-Former illicit drug use (nasal crack cocaine, nasal mask, nasal speed)
-Prior alcohol abuse
-History of cervical and lumbar laminectomy
-S/p Cervical and lumbar laminectomy and fusion
-S/P Left lower lobectomy (benign tumor)
-Acute postop blood loss anemia - stable, no acute bleed, no transfusion
-Acute postop atelectasis
-Acute postop hypovolemia with subsequent hypervolemia
-Suspected acute postop pericarditis on ECG/+ rub
Discussed patient care with: Cardiology and Nursing
Subjective
Procedure
CABG x 4 SEVILLA-LAD, Radial- RI & OM, SVG-RPDA by Dr. aSnty Naylor 06/30/24-pod#2
- c/o incisional pain with deep breaths
- straight cath for 650cc urine around 1930, started on Flomax
-
Date of Service: July 02, 2024
Objective Data
-
PT 16.5 Sec (11.4-14.6) H 06/30/24 12:21
INR 1.30 06/30/24 12:21
APTT 33.4 Sec (23.4-35.0) 06/30/24 12:21
Vital Signs
Vital Signs
Temp Pulse Resp BP Pulse Ox
97.8 F 88 14 139/75 94
07/02/24 00:00 07/02/24 03:00 07/02/24 00:00 07/02/24 03:00 07/02/24 03:00
CT Intake/Output/Weight
07/01/24 07/01/24 07/02/24
06:59 18:59 06:59
Intake Total 261.5 / 500.7 288.5 / 401.6 113.1 / 401.6
Output Total 560 / 1365 215 / 910 695 / 910
Balance -298.5 / -864.3 73.5 / -508.4 -581.9 / -508.4
SaO2: 94
Physical Exam
-
General: AOx3
Cardiovascular: Regular rate & rhythm
Respiratory: Rales (bases L>R)
Sternum: Stable
Incision: Clean, Dry and Intact
Extremities: No Edema
Data Reviewed
-
Lab Results: Results Reviewed
Medications: Active Meds Reviewed
Chest X-Ray: Image Reviewed
ECG: Image Reviewed
[2024-07-02 03:52] LABS: Glucose - Point of Care 105 mg/dl (70-99)
--- NOTE | 2024-07-02 03:57 | PTCARENOTE ---
no acute changes. VSS. AM labs collected and sent.
[2024-07-02 04:00] LABS: Hematocrit 33.3 % (39.0-52.0); Hemoglobin 11.3 g/dL (13.0-18.0); Mean Corp Hgb Conc. 33.9 g/dL (33.0-37.0); Mean Corpuscular Hgb 29.7 pg (27.0-31.0); Mean Corpuscular Volume 87.6 fL (80.0-94.0); Mean Platelet Volume 10.6 fL (7.4-10.4); Platelet Count 207 10^3/uL (130-400); Red Cell Dist. Width 13.4 % (11.5-14.5); White Blood Cell Count 18.5 10^3/uL (4.8-10.8)
[2024-07-02 04:25] LABS: Blood Urea Nitrogen 21 mg/dl (9-20); Calcium 8.9 mg/dl (8.4-10.2); Carbon Dioxide 28 mmol/L (22-30); Chloride 97 mmol/L (98-107); Estimated Creatinine Clearance > 125 ml/min; Glucose 105 mg/dl (70-99); Potassium 4.4 mmol/L (3.5-5.1); Sodium 129 mmol/L (135-145); eGFR > 60.00
[2024-07-02] MEDS: FLEXERIL 5 MG PO (05:31)
[2024-07-02] MEDS: TYLENOL 1000 MG PO ×3 (05:31→22:23)
[2024-07-02 06:06] LABS: Glucose - Point of Care 128 mg/dl (70-99)
[2024-07-02] MEDS: LASIX 40 MG IV (07:11)
[2024-07-02] MEDS: NOVOLOG FLEXPEN 4 UNITS SC ×2 (07:30→13:30)
[2024-07-02] MEDS: BACTROBAN 2% OINTMENT 1 APPLIC NASAL ×2 (07:30→20:20)
[2024-07-02 07:41] LABS: Glucose - Point of Care 124 mg/dl (70-99)
[2024-07-02] MEDS: VENTOLIN NEBULES 2.5 MG INH (07:42)
--- NOTE | 2024-07-02 07:57 | PN.DE.MGMTRT ---
Insulin Management
- -
07/02/24 Diabetes Management Consult Follow up
Patient transferred from [facility] 06/22, admitted [facility] for cp s/p cardiac cath. H obstructive CAD, [place] 99 stents 1999, HTN, HLD, diabetes, depression anxiety, BOWEN, L lung CA with lobectomy. Prior to admission was taking metformin 500 mg BID with
Ozempic weekly. A1C on admission 6.1%, cr .6, eGFR > 60.
Patient is awake alert and oriented able to discuss diabetes management.
POD 2 CR .6, eGFR > 60. Glucose on insulin infusion range 124 to 139 requiring .1 to 4.5 units of insulin per hour. Will continue insulin infusion today until after lunch. Will resume metformin 500 mg BID and add Farxiga 10 mg daily with
moderate corrective insulin.
Discussed with nurse.
Will follow
Diabetes History
- -
Type of Diabetes: 2
Pre-Admission Diabetes Regimen
07/02/24
03:51
Creatinine 0.6 L
Lab Results
Hemoglobin A1c 6.1 % (4.0-5.6) H 06/23/24 03:20
Insulin Pump Settings
IP Diabetes Regimen
07/01/24 07/01/24 07/01/24
08:11 10:00 12:19
Glucose
POC Glucose 139 H 164 H 116 H
07/01/24 07/01/24 07/01/24
13:26 14:56 16:18
Glucose
POC Glucose 187 H 107 H 168 H
07/01/24 07/01/24 07/01/24
18:43 20:06 21:09
Glucose
POC Glucose 72 198 H 202 H
07/01/24 07/01/24 07/02/24
22:11 23:26 00:39
Glucose
POC Glucose 139 H 136 H 106 H
07/02/24 07/02/24 07/02/24
01:47 03:51 06:01
Glucose 105 H
POC Glucose 103 H 105 H 128 H
07/02/24
07:27
Glucose
POC Glucose 124 H
Meal type: Dinner
Meal type: Breakfast
Amount consumed: 100%
Amount consumed: 75%
Patient Education
--- NOTE | 2024-07-02 08:10 | W.PN.INTV ---
Today's Communication / Plan
Recommendations
Up OOB
Encouraged incentive spirometer
Cardiac rehab consult
Goal BG 140�180
Outpatient pulmonary evaluation given moderate persistent obstructive lung defect seen on PFTs from 06/23/2024
Patient has been weaned off of insulin drip and is now being downgraded to CVICU�telemetry status. No additional recommendations at this time. Cracker Sprayer/Pulmonary service will now sign off. Thank you for allowing us to be involved in the care
of this patient. Please reconsult if there are any additional questions/concerns, or if patient's respiratory status deteriorates.
Assessment
-
Assessment: 64-year-old male with a past medical history of CAD with history of multiple stents, hypertension, hyperlipidemia, DM type II, history of carcinoid tumor in the left lung s/p left lower lobectomy, former tobacco smoker, history of
alcohol + illicit drug use, anxiety/depression, bipolar disorder�who initially presented with chest pain + shortness of breath. He initially went to [facility] after developing left-sided chest pain with shortness of breath with
activity. Found to have elevated troponin of 204 and was diagnosed with an NSTEMI. He was started on heparin drip + nitroglycerin drip. Also given aspirin + Plavix. He had a subsequent left heart catheterization showing multivessel CAD, and
transferred here to [facility] for further evaluation. PFT was performed on 06/23/2024 showing a moderate-severity persistent obstructive lung defect with a mild-moderate restrictive lung defect, negative bronchodilator response, and normal
gas exchange capacity (DLco: 99%). Cardiothoracic surgery was consulted and plan was for surgical revascularization after Plavix washout. Today, patient underwent CABG x 4 with a left atrial appendage exclusion with a 40 mm clip. Intraoperative
MIKHAIL showed normal biventricular function with no regional WMA seen, with no thrombus or mass seen in the left atrial appendage and initially there was a degree of SAUMYA with mild�moderate MR which gradually improved to trivial�mild MR and SAUMYA
resolved. Patient transferred to the CVICU postoperatively and cooky packer services consulted for additional management/recommendations.
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
alcohol abuse, prior illicit drug use (crack cocaine, meth, speed)
Impression:
#NSTEMI with multivessel CAD s/p CABG x 4+ left atrial appendage exclusion (POD #2)
#Acute anemia due to above
#Prediabetes (HbA1c: 6.1 on 06/23/2024)
#Moderate persistent obstructive lung disease with mild as moderate restrictive lung disease and normal gas exchange capacity (via PFTs from 06/23/2024)
#DM type II
#Depression/anxiety with history of bipolar disorder
#History of BOWEN
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
#Former tobacco smoker (Quit smoking cigarettes 20 years ago)
#History of alcohol + illicit drug abuse (quit 12 years ago)
Plan:
Patient was extubated to nasal cannula on 06/30/2024 and is currently on room air breathing comfortably and saturating 95%
Maintain SpO2 >90-94%
prn nebulized bronchodilators � not currently bronchospastic
Encourage incentive spirometer use
Given his moderate persistent obstructive lung disease with restriction seen on PFTs from 06/23/2024, recommend outpatient pulmonary office visit. This will be arranged
Maintain MAP>65
Replete electrolytes with K>4, Mg>2
Monitor chest tube output (left pleural + mediastinal chest tubes x 2)
Monitor hemoglobin
Monitor platelet count and coags
Transfuse blood products as needed to maintain Hb>7g/dL, plt>50k (given post-operative status)
CT surgery managing chest tubes
Monitor blood sugar to maintain euglycemia with goal BG 140-180
Insulin drip per protocol --> drio now off. Continue ISS as needed to maintain BG goal as above
Aspiration precautions
DVT prophylaxis
Early nutrition
Early mobilization
Patient has been weaned off of insulin drip and is now being downgraded to CVICU�telemetry status. No additional recommendations at this time. Cracker Sprayer/Pulmonary service will now sign off. Thank you for allowing us to be involved in the care
of this patient. Please reconsult if there are any additional questions/concerns, or if patient's respiratory status deteriorates.
Total time spent today was 57 minutes for this encounter. Time includes reviewing laboratory test/imaging results, reviewing pertinent medical records, obtaining and reviewing medical history, performing an appropriate exam, ordering medications,
tests and procedures. Time also includes documentation of this encounter, coordinating patient care and communicating with other healthcare professionals. Total time does not include separately billed tests performed on this date of service.
Subjective Dataa
Subjective Data
Date of Service:
Date of Service: July 02, 2024
Chief Complaint: Cracker Sprayer Follow Up
Subjective:
Patient seen and evaluated today at bedside. He is tired today. Currently on room air breathing comfortably, saturating 95%. Heart rate 89, BP 108/51. He denies chest pain, nausea, fevers or chills. He feels achy.
Review of Systems
General: Other (Negative unless mentioned above)
Objective Data
Data Reviewed
Vital Signs / I&O / Oxygen:
Vital Signs
Temp Pulse Resp BP Pulse Ox
97.8 F 96 16 122/53 91
07/02/24 08:00 07/02/24 09:45 07/02/24 09:00 07/02/24 09:45 07/02/24 09:45
Intake and Output
07/01/24 07/02/24 07/03/24
06:59 06:59 06:59
Intake Total 500.7 / 500.7 441.6 / 455.6 282 / 282
Output Total 1365 / 1365 940 / 940 1585 / 1585
Balance -864.3 / -864.3 -498.4 / -484.4 -1303 / -1303
SaO2 91
Nasal Cannula flow liters per 2
minute
Physical Exam
General: Respiratory Distress (negative), Comfortable, Chills (negative) and Sweats (negative)
HEENT: Normocephalic and Anicteric
Cardiovascular: S1-S2 and Peripheral Edema (negative)
Respiratory: Wheeze (negative), Crackles (negative), Rhonchi (negative), Non-Labored Respirations and Stridor (negative)
GI: Soft, Non Distended, Non Tender and Normal Bowel Sounds
Neurology: AO x 3 and Tremors (negative)
Skin: Warm, Dry, Cyanosis (negative) and Jaundice (negative)
Labs/Micro/Reports
Lab Data
07/02/24 03:51
07/02/24 03:51
--- NOTE | 2024-07-02 08:25 | W.PN.CD ---
Today's Communication / Plan
-
s/p multivessel CABG
continue ASA, Plavix, BB, statin
Resume other antihypertensives once able
Impression / Plan
-
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
after he developed left-sided chest pain at rest 06/18/2024 with associated DELGADILLO leading to LHC at [facility] showed MVCAD. Now s/p CABG x 4 (In situ SEVILLA to LAD, sequential left radial artery to ramus to OM, SVG to RPDA) with Dr. Naylor, 06/30/2024.
#CAD
-New diagnosis.
-s/p CABG x 4 (In situ SEVILLA to LAD, sequential left radial artery to ramus to OM, SSVG to RPDA) with Dr. Naylor, 06/30/2024.
-Intra-op MIKHAIL with LVEF 60% and no RWMA; post-op MIKHAIL EF 65-70%.
-Continue amiodarone, amlodipine (LRA graft), aspirin, clopidogrel, metoprolol, rosuvastatin.
-Encourage incentive spirometry.
-Ambulate when appropriate.
-Pain/chest tube management per CT surgery.
#First degree AV block
-Chronic, stable.
-S/P LAAO (#40 AtriClip) with Dr. Naylor, 06/30/2024.
#Hypertension
-Chronic, elevated.
-Currently receiving amlodipine 5 mg daily (also for LRA graft), metoprolol 12.5 mg.
-Hydralazine 5 mg IV dropped BP considerably.
-Resume home medications as tolerated (rather than hydralazine). I favor starting with 1/2 dose losartan (50 mg rather than 100 mg) and monitoring. Could also switch to coreg (prior home med) instead of metoprolol.
-Hold diltiazem in light of amlodipine.
#NIDDM
-Chronic, stable.
-Not requiring insulin.
-Resume metformin when taking PO.
-He would benefit from outpatient GLP-1 analog.
#HLD
-Chronic.
-Continue atorvastatin 80 mg with ezetimibe.
-LDL = 61, ideally should be under 55.
-Consider addition of PCSK9i as outpatient.
#BOWEN
-LFTs and INR stable.
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
#Prior tobacco abuse
#ETOH abuse, in recovery for 12 years
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
Primary dairy truck driver: Dr. Jiang ([facility])
Subjective/Interval History:
Weight up 2.5 kg ?
Hypertensive
Physical Exam
Vital Signs/Labs
Vital Signs
Temp Pulse Resp BP Pulse Ox
36.6 C 91 17 149/74 95
07/02/24 08:00 07/02/24 08:18 07/02/24 08:00 07/02/24 08:18 07/02/24 08:18
07/01/24 07/02/24 07/03/24
06:59 06:59 06:59
Actual Weight 94.4 kg 96.8 kg
07/02/24 03:51
07/02/24 03:51
PT 16.5 Sec (11.4-14.6) H 06/30/24 12:21
INR 1.30 06/30/24 12:21
APTT 33.4 Sec (23.4-35.0) 06/30/24 12:21
Magnesium 2.0 mg/dl (1.6-2.3) 07/02/24 03:51
Triglycerides 103 mg/dl (10-149) 06/22/24 18:21
LDL Cholesterol, Calc 61 mg/dl 06/22/24 18:21
VLDL Cholesterol, Calc 20 mg/dl (0-30) 06/22/24 18:21
HDL Cholesterol 46 mg/dl 06/22/24 18:21
Physical Exam
Constitutional: No acute distress
Cardiovascular: Rhythm & rate is regular
Respiratory: Respiratory effort normal
Neuro/Psych: AO x 3
Data Reviewed
-
Date of Service: July 02, 2024
Medical Decision Making: Reviewed Test Results
EKG: Report Reviewed by me
Echo: Report Reviewed by me
X-Ray/CT/US/MRI/NUC/PET: Report Reviewed by me
Labs: Labs Reviewed by me
--- NOTE | 2024-07-02 08:30 | PTCARENOTE ---
Patient received from material handler 2nd shift RN; AAOx3, responds spontaneously to RN and follows commands; VSS; NSR on monitor; Epicardial V-wire insulated; Trace B/L LE edema; +2 DP and right radial pulses, +1 left ulnar pulse; Shallow respirations; SpO2
90-97% on RA; IS 1500 ml; Inspiratory wheeze throughout - RT to administer PRN nebulizer; CT x2 connected to -20 cm wall suction draining serosanguineous drainage - no air leak, tidaling, or crepitus noted; Patient states he's passing gas; DTV;
Surgical sites intact; RIJ Cordis with KVO and insulin infusing - see nursing flowsheets for further details; PIV x1 #20 right hand; See nursing documentation for further information.
[2024-07-02] MEDS: CYMBALTA DELAYED RELEASE 60 MG PO (08:55)
[2024-07-02] MEDS: NORVASC 5 MG PO (08:55)
[2024-07-02] MEDS: LOPRESSOR 25 MG PO ×2 (08:55→20:20)
[2024-07-02] MEDS: PROTONIX 40 MG PO (08:55)
[2024-07-02] MEDS: NEURONTIN 300 MG PO ×3 (08:55→22:23)
[2024-07-02] MEDS: ZETIA 10 MG PO (08:55)
[2024-07-02] MEDS: FARXIGA 10 MG PO (08:55)
[2024-07-02] MEDS: MAGNESIUM OXIDE 500 MG PO ×2 (08:55→20:20)
[2024-07-02] MEDS: PACERONE 200 MG PO ×3 (08:56→22:24)
[2024-07-02] MEDS: GLUCOPHAGE 500 MG PO ×2 (08:56→16:41)
[2024-07-02] MEDS: SENOKOT-S 1 TABLET PO ×2 (08:56→20:20)
[2024-07-02] MEDS: PLAVIX 75 MG PO (08:56)
[2024-07-02] MEDS: COZAAR 100 MG PO (08:56)
[2024-07-02] MEDS: LIDOCAINE 4% PATCH TOPICAL (08:57)
[2024-07-02] MEDS: LOW STRENGTH ASPIRIN 81 MG PO (08:57)
[2024-07-02 09:57] LABS: Glucose - Point of Care 169 mg/dl (70-99)
[2024-07-02 12:08] LABS: Glucose - Point of Care 111 mg/dl (70-99)
--- NOTE | 2024-07-02 12:16 | CM ---
Reviewed chart. Met with Mr. Voss to review discharge plans. He states he is feeling tired today, he states he did not sleep well last night. He states he ambulated in the hallway today. We reviewed his co-pays for Farxiga and Jardiance. Farxiga
10 mg po co-pay would be $144.75 a month until he meet his $2000.00 out of pocket cost. after that his co-pay would be zero. Jardiance 10 mg po daily co-pay would be $151.91 a month until he meets his total out of pocket cost of $2000.00,then the
medication would be zero co-pay. He is agreeable to the co-pay. Placed the one month free Farxiga coupon in his red discharge folder. Prior to admission he resides with his spouse in a two story home with one step to enter. He has a full flight
of steps to get to bedroom/full bathroom. He has to go to the family room in the basement for the powder room. Prior to admission he was independent with ambulation and adls. He has a prescription plan and uses [facility]. His spouse will be
home to assist in his care if needed. We reviewed a home visit by the Transitional Care Nurse. He is agreeable to a home visit. The discharge plan is to return home with his spouse and a home visit by the Transitional Care Nurse when medically
stable.
--- NOTE | 2024-07-02 12:55 | PTCARENOTE ---
Epicardial V-wire pulled at bedside by CVPA Pat Murt - VSS thoughout and no complication noted; Mediastinal chest tubes pulled at bedside by RN one hour afterwards; Patient resting comfortably in chair at this time
[2024-07-02 13:56] LABS: Glucose - Point of Care 152 mg/dl (70-99)
[2024-07-02 16:39] LABS: Glucose - Point of Care 178 mg/dl (70-99)
[2024-07-02] MEDS: NOVOLOG FLEXPEN-MODERATE RESISTANCE 300 UNITS SC (17:18)
[2024-07-02] MEDS: NOVOLOG FLEXPEN SC (18:24)
--- NOTE | 2024-07-02 21:00 | PTCARENOTE ---
Assumed care of pt from dayshift RN. Walking rounds completed. Pt AAOx3. JANG. Pt SR on the tele monitor. HR 80s. BP stable. B/L Dp pulses palpable. R radial palpable, L ulnar weak on palpable. Trace edema throughout. Pt 93% on RA. Lung sounds
diminished B/L. Occasional inspiratory wheeze. Deep breathing and IS encouraged. CT sites C/D/I. Abdomen round/non-tender. +BS. Pt voiding ad jaime into the urinal. No nausea. All surgical sites stable. Right IJ cordis positional - but flushes. See
MAR for pain medication administration. See worklist for full nursing assessment and interventions. Pt repositioned in bed. Call anglin within reach.
[2024-07-02] MEDS: LIPITOR 80 MG PO (22:23)
[2024-07-03] VITALS (10 sets, daily range): BP systolic 95–154; BP diastolic 60–91; PULSE 91; O2SAT 95–96; BMI 30.1
[2024-07-03] MEDS: KLONOPIN 3 MG PO ×2 (00:11→20:37)
--- NOTE | 2024-07-03 00:23 | PTCARENOTE ---
No acute changes in assessment. Pt SR on the tele monitor. HR 80-90s. BP stable. Pt 93% on RA. All surgical sites stable at this time. Voiding as needed in the urinal. PRN Reid for insomnia - see MAR. Pt repositioned in bed. Call anglin within
reach.
[2024-07-03] MEDS: TYLENOL 650 MG PO ×2 (02:32→20:02)
--- NOTE | 2024-07-03 05:01 | PTCARENOTE ---
Assessment unchanged. Pt SR on the tele monitor. HR 80s. BP stable. Pt 94% on RA. All surgical sites stable. Pt denies pain at this time. Labs sent. Call anglin within reach.
[2024-07-03 05:14] LABS: Hematocrit 32.8 % (39.0-52.0); Mean Corp Hgb Conc. 33.5 g/dL (33.0-37.0); Mean Corpuscular Hgb 29.3 pg (27.0-31.0); Mean Corpuscular Volume 87.2 fL (80.0-94.0); Mean Platelet Volume 10.6 fL (7.4-10.4); Platelet Count 210 10^3/uL (130-400); Red Blood Cell Count 3.76 10^6/uL (4.70-6.10); Red Cell Dist. Width 13.4 % (11.5-14.5); White Blood Cell Count 15.6 10^3/uL (4.8-10.8)
[2024-07-03 05:33] LABS: Blood Urea Nitrogen 21 mg/dl (9-20); Calcium 8.8 mg/dl (8.4-10.2); Carbon Dioxide 26 mmol/L (22-30); Chloride 96 mmol/L (98-107); Estimated Creatinine Clearance > 125 ml/min; Glucose 128 mg/dl (70-99); Magnesium 1.9 mg/dl (1.6-2.3); Potassium 4.3 mmol/L (3.5-5.1); Sodium 131 mmol/L (135-145); eGFR > 60.00
[2024-07-03] MEDS: TYLENOL PO (06:10)
[2024-07-03 07:23] LABS: Glucose - Point of Care 185 mg/dl (70-99)
--- NOTE | 2024-07-03 07:36 | W.PN.CT ---
Today's Communication / Plan
-
-pod #3
-no issues overnight
-diuresed well with Lasix yesterday (UO 1650/3950 in 12/24 hrs)
-Cr stable 0.6
-weaned off O2 - pOx 94% on RA
-continue current meds
-encourage IS, OOB, ambulate
Assessment / Plan
-
-mv CAD - s/p CABG x 4 (In situ SEVILLA to LAD, Ao to left radial artery to ramus sequential to OM, Ao to RSVG to RPDA); Left atrial appendage exclusion [40 mm clip] by Dr. Naylor on 06/30/24, pod #3
-Intraop MIKHAIL: LVEF preop was 60% with no significant regional wall motion abnormalities. Following surgery his EF remained the same and slightly hyperdynamic until volume was given back to him. His EF was probably 65 to 70% during which time he
had mild dynamic systolic anterior motion of the leaflets with mild to moderate mitral valve insufficiency. Afterload was increased and volume was given, this resolved the mitral valve insufficiency to trace with no SAUMYA recurring. His left atrial
appendage was verified to be free of any thrombus or debris preoperatively and found to be totally occlusive postoperatively with a 40 mm device applied flush to the base.
-brief period of VVI pacing while he was junctional at which point he regained a sinus rhythm.
-Multivessel CAD, transferred from [facility] for CABG evaluation
-NSTEMI
-Plavix washout, last dose 06/22
-CAD s/p [place] 1998
-PCI w/ stent to LAD 1998
-S/P PCI with stent to RCA 1999
-S/P PCI with stent to OM 2002
-S/P PCI with FLAKO to LAD/Diag 2017
-HTN/HLD
-NIDDMII, on metformin
-Depression
-Anxiety
-BOWEN, Liver dz
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
-Former cigarette smoker (quit abusing street drugs 12 years ago
-Former illicit drug use (nasal crack cocaine, nasal mask, nasal speed)
-Prior alcohol abuse
-History of cervical and lumbar laminectomy
-S/p Cervical and lumbar laminectomy and fusion
-S/P Left lower lobectomy (benign tumor)
-Acute postop blood loss anemia - stable, no acute bleed, no transfusion
-Acute postop atelectasis
-Acute postop hypovolemia with subsequent hypervolemia
-Suspected acute postop pericarditis on ECG/+ rub
-Acute postop hyponatremia
Discussed patient care with: Nursing and Care Team
Subjective
Procedure
CABG x 4 SEVILLA-LAD, Radial- RI & OM, SVG-RPDA by Dr. Santy Naylor 06/30/24-pod#2
- c/o incisional pain with deep breaths
- straight cath for 650cc urine around 1930, started on Flomax
-
Date of Service: July 03, 2024
Objective Data
-
Lab Results
07/03/24 04:45
07/03/24 04:45
PT 16.5 Sec (11.4-14.6) H 06/30/24 12:21
INR 1.30 06/30/24 12:21
APTT 33.4 Sec (23.4-35.0) 06/30/24 12:21
Vital Signs
Vital Signs
Temp Pulse Resp BP Pulse Ox
98.3 F 85 18 147/81 93
07/03/24 04:36 07/03/24 06:00 07/03/24 04:36 07/03/24 04:36 07/03/24 04:36
CT Intake/Output/Weight
07/02/24 07/03/24 07/03/24
18:59 06:59 18:59
Intake Total 1200.0 / 1200.0
Output Total 2310 / 3960 1650 / 3960
Balance -1110.0 / -2760.0 -1650 / -2760.0
SaO2: 93
Physical Exam
-
General: Awake and AOx3
Cardiovascular: Regular rate & rhythm, No Murmurs and No Rub
Respiratory: Rales (at bases, no wheeze)
Sternum: Stable
Incision: Clean, Dry and Intact
Extremities: Other (trace edema b/l)
Abdomen: soft, nontender, nondistended, + bowel sounds
Data Reviewed
-
Lab Results: Results Reviewed
Medications: Active Meds Reviewed
Chest X-Ray: Report Reviewed and Image Reviewed
ECG: Report Reviewed and Image Reviewed
[2024-07-03] MEDS: NOVOLOG FLEXPEN-MODERATE RESISTANCE 1 UNITS SC (08:02)
[2024-07-03] MEDS: BACTROBAN 2% OINTMENT 1 APPLIC NASAL ×2 (08:03→20:35)
--- NOTE | 2024-07-03 08:36 | PN.DE.MGMTRT ---
Insulin Management
- -
07/03/24 Diabetes Management Follow up
Patient transferred from [facility] 06/22, admitted [facility] for cp s/p cardiac cath. PMH obstructive CAD, [place] 99 stents 1999, HTN, HLD, diabetes, depression anxiety, BOWEN, L lung CA with lobectomy. Prior to admission was taking metformin 500 mg BID with
Ozempic weekly. A1C on admission 6.1%, Cr .6, eGFR > 60.
Patient is awake alert, oriented, sitting up in chair, able to discuss diabetes management. Family at bedside.
POD #3 s/p CABG x4. Pt was transitioned off insulin infusion yesterday after lunch to oral regimen
His glucose has remained stable and in range, 111 to 178, with a fasting glucose of 128(V), 185 POC this AM.
Will cont current regimen: Metformin 500 mg BID and Farxiga 10 mg daily with moderate corrective insulin.
Will cont to follow. Discussed with nurse.
Diabetes History
- -
Type of Diabetes: 2 requiring insulin
Pre-Admission Diabetes Regimen
07/03/24
04:45
Creatinine 0.6 L
Lab Results
Hemoglobin A1c 6.1 % (4.0-5.6) H 06/23/24 03:20
Insulin Pump Settings
IP Diabetes Regimen
07/02/24 07/02/24 07/02/24
09:54 12:08 13:55
Glucose
POC Glucose 169 H 111 H 152 H
07/02/24 07/03/24 07/03/24
16:37 04:45 07:22
Glucose 128 H
POC Glucose 178 H 185 H
Meal type: Dinner
Meal type: Breakfast
Amount consumed: 100%
Amount consumed: 100%
Patient Education
[2024-07-03] MEDS: PROTONIX 40 MG PO (08:45)
[2024-07-03] MEDS: ZETIA 10 MG PO (08:45)
[2024-07-03] MEDS: MAGNESIUM OXIDE 500 MG PO ×2 (08:45→20:01)
[2024-07-03] MEDS: FARXIGA 10 MG PO (08:45)
[2024-07-03] MEDS: SENOKOT-S 1 TABLET PO ×2 (08:45→20:01)
[2024-07-03] MEDS: MIRALAX 17 GRAMS PO (08:45)
[2024-07-03] MEDS: PACERONE 200 MG PO ×3 (08:46→23:24)
[2024-07-03] MEDS: NEURONTIN 300 MG PO ×3 (08:46→23:26)
[2024-07-03] MEDS: CYMBALTA DELAYED RELEASE 60 MG PO (08:46)
[2024-07-03] MEDS: NORVASC 5 MG PO (08:46)
[2024-07-03] MEDS: COZAAR 100 MG PO (08:46)
[2024-07-03] MEDS: GLUCOPHAGE 500 MG PO ×2 (08:46→16:26)
[2024-07-03] MEDS: PLAVIX 75 MG PO (08:46)
[2024-07-03] MEDS: LIDOCAINE 4% PATCH TOPICAL (08:47)
[2024-07-03] MEDS: LASIX 40 MG IV ×2 (08:47→16:26)
[2024-07-03] MEDS: LOW STRENGTH ASPIRIN 81 MG PO (08:47)
[2024-07-03] MEDS: LOPRESSOR 25 MG PO ×3 (09:12→09:14)
--- NOTE | 2024-07-03 09:27 | PTCARENOTE ---
Pt is AOx3, no complaints of pain or discomfort. Assist X1 OOB. Blood sugars monitored. SR on tele monitor, VSS. Sternal precautions, all incisions CDI. Call anglin within reach.
[2024-07-03] MEDS: FLEXERIL 5 MG PO (10:37)
[2024-07-03] MEDS: TYLENOL 1000 MG PO ×2 (11:57→23:25)
[2024-07-03 12:14] LABS: Glucose - Point of Care 124 mg/dl (70-99)
--- NOTE | 2024-07-03 12:18 | CM ---
Reviewed chart. Met with Mr. Voss to review discharge plans. He states he feeling tired. He states he maybe able to go home soon. He states he ambulated in the hallway and did the stairs. We reviewed a home visit by the Transitional Care Nurse.
He is agreeable to a home visit. Prior to admission he resides with his spouse in a two story home with one step to enter the home. He has a full flight of steps to get to bedroom/full bathroom. He has to go down a full flight of stairs to get to
the powder room. Prior to admission he was independent with ambulation and adls. He has a prescription plan and uses [facility]. His spouse will be home to assist in his care if needed when he goes home. Medical work-up in progress. The
discharge plan is to return home with his spouse and a home visit by the Transitional Care Nurse when medically stable.
--- NOTE | 2024-07-03 12:31 | W.PN.CD ---
Today's Communication / Plan
-
cont. standard post operative care
nearing euvolemia
Impression / Plan
-
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
after he developed left-sided chest pain at rest 06/18/2024 with associated DELGADILLO leading to LHC at [facility] showed MVCAD. Now s/p CABG x 4 (In situ SEVILLA to LAD, sequential left radial artery to ramus to OM, SVG to RPDA) with Dr. Naylor, 06/30/2024.
#CAD
-New diagnosis.
-s/p CABG x 4 (In situ SEVILLA to LAD, sequential left radial artery to ramus to OM, SSVG to RPDA) with Dr. Naylor, 06/30/2024.
-Intra-op MIKHAIL with LVEF 60% and no RWMA; post-op MIKHAIL EF 65-70%.
-Continue amiodarone, amlodipine (LRA graft), aspirin, clopidogrel, metoprolol, rosuvastatin.
-Encourage incentive spirometry, ambulation
-Pain/chest tube management per CT surgery.
#First degree AV block
-Chronic, stable.
-S/P LAAO (#40 AtriClip) with Dr. Naylro, 06/30/2024.
#Hypertension
-Chronic, elevated.
-Currently receiving losartan 100, amlodipine 5 mg daily (also for LRA graft), metoprolol 12.5 mg.
-Hold home diltiazem in light of amlodipine.
-if further BP reduction needed, could convert metop back to home coreg
#NIDDM
-Chronic, stable.
-Not requiring insulin.
-Resume metformin when taking PO.
-He would benefit from outpatient GLP-1 analog.
#HLD
-Chronic.
-Continue atorvastatin 80 mg with ezetimibe.
-LDL = 61, ideally should be under 55.
-Consider addition of PCSK9i as outpatient.
#BOWEN
-LFTs and INR stable.
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
#Prior tobacco abuse
#ETOH abuse, in recovery for 12 years
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
Primary air bag curer: Dr. Jiang ([facility])
Subjective/Interval History:
Weight down 1.6 kg with corresponding I/Os
Says he was wiped out by walking today
Physical Exam
Vital Signs/Labs
Vital Signs
Temp Pulse Resp BP Pulse Ox
36.8 C 84 20 134/77 95
07/03/24 10:39 07/03/24 10:30 07/03/24 10:39 07/03/24 10:30 07/03/24 10:39
07/02/24 07/03/24 07/04/24
06:59 06:59 06:59
Actual Weight 96.8 kg 95.2 kg
07/03/24 04:45
07/03/24 04:45
PT 16.5 Sec (11.4-14.6) H 06/30/24 12:21
INR 1.30 06/30/24 12:21
APTT 33.4 Sec (23.4-35.0) 06/30/24 12:21
Magnesium 1.9 mg/dl (1.6-2.3) 07/03/24 04:45
Triglycerides 103 mg/dl (10-149) 06/22/24 18:21
LDL Cholesterol, Calc 61 mg/dl 06/22/24 18:21
VLDL Cholesterol, Calc 20 mg/dl (0-30) 06/22/24 18:21
HDL Cholesterol 46 mg/dl 06/22/24 18:21
Physical Exam
Constitutional: Comfortable
Cardiovascular: Rhythm & rate is regular
Respiratory: Respiratory effort normal
Neuro/Psych: AO x 3
Data Reviewed
-
Date of Service: July 03, 2024
Medical Decision Making: Reviewed Test Results
EKG: Tracing Personally Visualized and interpreted
X-Ray/CT/US/MRI/NUC/PET: Image Personally Visualized and interpreted
Labs: Labs Reviewed by me
[2024-07-03] MEDS: NOVOLOG FLEXPEN-MODERATE RESISTANCE SC ×2 (12:50→17:45)
[2024-07-03] MEDS: NSS IV (13:13)
--- NOTE | 2024-07-03 15:08 | PTCARENOTE ---
Received pt from previous RN; pt ambulation in room; NSR on monitor and VSS; RIJ Cordis and PIV x1 patent; Lungs diminished; positive bowel sounds; pt voiding yellow urine; palpable pulses throughout; no edema noted; all surgical sites C/D/I.
[2024-07-03] MEDS: MILK OF MAGNESIA 30 ML PO (16:31)
[2024-07-03 17:05] LABS: Glucose - Point of Care 149 mg/dl (70-99)
--- NOTE | 2024-07-03 18:21 | PTCARENOTE ---
Pt received this am with no c/o of any pain or sob. OOB in the chair for most of the day. Heparin infusing as ordered.
--- NOTE | 2024-07-03 18:30 | PTCARENOTE ---
Pt received from [facility]. OOB in the chair, no c/o offered. SR, rate in the 80's.
[2024-07-03] MEDS: LOPRESSOR 50 MG PO (20:06)
--- NOTE | 2024-07-03 21:21 | PTCARENOTE ---
Rec'd at change of shift. Pt AAO*3, SR on TELE monitor, and VSS. Pt reported mild pain at sternum operative site and PRN Tylenol given as ordered. Sternum open to air and site intact. Chest tube sites with dressing CDI. R side IJ in place. Pt
updated on plan of care. Pt resting with call anglin in reach and plan of care ongoing. See MAR and flowchart for full pt care and assessment. Plan of care ongoing.
[2024-07-03] MEDS: KCL 20 MEQ PO (23:24)
[2024-07-03] MEDS: LIPITOR 80 MG PO (23:25)
[2024-07-03 23:53] LABS: Glucose - Point of Care 120 mg/dl (70-99)
[2024-07-04] VITALS (11 sets, daily range): BP systolic 105–173; BP diastolic 61–140; PULSE 90; O2SAT 95–96; BMI 29.8
[2024-07-04] MEDS: TYLENOL 1000 MG PO ×3 (05:21→21:49)
--- NOTE | 2024-07-04 06:04 | W.PN.CT ---
Today's Communication / Plan
-
-No major issues overnight. Hemodynamically and neurologically intact
-Tolerating increased Lopressor to 50 mg po BID
-D/C cordis
-F/U 2-view cxr
-Cont. diuresis
-Monitor hyponatremia, 127, was 131 yesterday
-Encourage use of IS
-OOB into chair/Ambulate
-Home later today
Assessment / Plan
-
-mv CAD - s/p CABG x 4 (In situ SEVILLA to LAD, Ao to left radial artery to ramus sequential to OM, Ao to RSVG to RPDA); Left atrial appendage exclusion [40 mm clip] by Dr. Naylor on 06/30/24, pod #4
-Intraop MIKHAIL: LVEF preop was 60% with no significant regional wall motion abnormalities. Following surgery his EF remained the same and slightly hyperdynamic until volume was given back to him. His EF was probably 65 to 70% during which time he
had mild dynamic systolic anterior motion of the leaflets with mild to moderate mitral valve insufficiency. Afterload was increased and volume was given, this resolved the mitral valve insufficiency to trace with no SAUMYA recurring. His left atrial
appendage was verified to be free of any thrombus or debris preoperatively and found to be totally occlusive postoperatively with a 40 mm device applied flush to the base.
-brief period of VVI pacing while he was junctional at which point he regained a sinus rhythm.
-Multivessel CAD, transferred from [facility] for CABG evaluation
-NSTEMI
-Plavix washout, last dose 06/22
-CAD s/p CT 1998
-PCI w/ stent to LAD 1998
-S/P PCI with stent to RCA 1999
-S/P PCI with stent to OM 2002
-S/P PCI with FLAKO to LAD/Diag 2017
-HTN/HLD
-NIDDMII, on metformin
-Depression
-Anxiety
-BOWEN, Liver dz
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
-Former cigarette smoker (quit abusing street drugs 12 years ago
-Former illicit drug use (nasal crack cocaine, nasal mask, nasal speed)
-Prior alcohol abuse
-History of cervical and lumbar laminectomy
-S/p Cervical and lumbar laminectomy and fusion
-S/P Left lower lobectomy (benign tumor)
-Acute postop blood loss anemia - stable, no acute bleed, no transfusion
-Acute postop atelectasis
-Acute postop hypovolemia with subsequent hypervolemia
-Suspected acute postop pericarditis on ECG/+ rub
-Acute postop hyponatremia
Discussed patient care with: Cardiology, Nursing, Respiratory Therapy, Pharmacy and Care Team
Subjective
Procedure
CABG x 4 SEVILLA-LAD, Radial- RI & OM, SVG-RPDA by Dr. Santy Naylor 06/30/24-pod#2
- c/o incisional pain with deep breaths
- straight cath for 650cc urine around 1930, started on Flomax
-
Date of Service: July 04, 2024
Pt c/o mild incisional pain, states he walked a lot and did stairs yesterday
Objective Data
-
PT 16.5 Sec (11.4-14.6) H 06/30/24 12:21
INR 1.30 06/30/24 12:21
APTT 33.4 Sec (23.4-35.0) 06/30/24 12:21
Vital Signs
Vital Signs
Temp Pulse Resp BP Pulse Ox
98.1 F 81 18 149/81 96
07/04/24 05:19 07/04/24 05:19 07/04/24 05:19 07/04/24 05:19 07/04/24 05:19
CT Intake/Output/Weight
07/03/24 07/03/24 07/04/24
06:59 18:59 06:59
Intake Total 480 / 480
Output Total 1650 / 3960 1850 / 185
Balance -1650 / -2760.0 -1370 / -1370
SaO2: 96 (RA)
Physical Exam
-
General: Awake, Oriented and AOx3
Cardiovascular: Regular rate & rhythm, No Murmurs, No Rub and No Gallop
Respiratory: Decreased Breath Sounds (at bases, otherwise clear)
Sternum: Stable
Incision: Clean, Dry, Intact and Dressing Intact
Extremities: Other (+trace)
Data Reviewed
-
Lab Results: Results Reviewed
Medications: Active Meds Reviewed
Chest X-Ray: Report Reviewed and Image Reviewed
ECG: Report Reviewed and Image Reviewed
[2024-07-04 06:23] LABS: Hematocrit 35.2 % (39.0-52.0); Hemoglobin 12.1 g/dL (13.0-18.0); Mean Corp Hgb Conc. 34.4 g/dL (33.0-37.0); Mean Corpuscular Hgb 29.5 pg (27.0-31.0); Mean Corpuscular Volume 85.9 fL (80.0-94.0); Mean Platelet Volume 10.2 fL (7.4-10.4); Platelet Count 262 10^3/uL (130-400); Red Cell Dist. Width 13.2 % (11.5-14.5); White Blood Cell Count 13.6 10^3/uL (4.8-10.8)
[2024-07-04 06:41] LABS: Glucose - Point of Care 115 mg/dl (70-99)
[2024-07-04 06:44] LABS: Blood Urea Nitrogen 27 mg/dl (9-20); Calcium 9.1 mg/dl (8.4-10.2); Carbon Dioxide 26 mmol/L (22-30); Chloride 91 mmol/L (98-107); Estimated Creatinine Clearance > 125 ml/min; Glucose 112 mg/dl (70-99); Magnesium 2.3 mg/dl (1.6-2.3); Potassium 4.5 mmol/L (3.5-5.1); Sodium 127 mmol/L (135-145); eGFR > 60.00
[2024-07-04] MEDS: NOVOLOG FLEXPEN-MODERATE RESISTANCE SC ×3 (07:52→17:39)
[2024-07-04] MEDS: BACTROBAN 2% OINTMENT 1 APPLIC NASAL (09:26)
[2024-07-04] MEDS: MIRALAX 17 GRAMS PO (09:26)
[2024-07-04] MEDS: SENOKOT-S 1 TABLET PO ×2 (09:28→20:25)
[2024-07-04] MEDS: FARXIGA 10 MG PO (09:28)
[2024-07-04] MEDS: LOW STRENGTH ASPIRIN 81 MG PO (09:28)
[2024-07-04] MEDS: PACERONE 200 MG PO ×3 (09:28→21:48)
[2024-07-04] MEDS: LOPRESSOR 50 MG PO ×2 (09:28→20:25)
[2024-07-04] MEDS: CYMBALTA DELAYED RELEASE 60 MG PO (09:28)
[2024-07-04] MEDS: ZETIA 10 MG PO (09:28)
[2024-07-04] MEDS: MAGNESIUM OXIDE 500 MG PO ×2 (09:29→20:25)
[2024-07-04] MEDS: NEURONTIN 300 MG PO ×3 (09:29→21:48)
[2024-07-04] MEDS: NORVASC 5 MG PO (09:29)
[2024-07-04] MEDS: GLUCOPHAGE 500 MG PO ×2 (09:29→16:15)
[2024-07-04] MEDS: LASIX 40 MG IV ×2 (09:30→16:14)
[2024-07-04] MEDS: LIDOCAINE 4% PATCH TOPICAL (09:30)
[2024-07-04] MEDS: PLAVIX 75 MG PO (09:31)
[2024-07-04] MEDS: COZAAR 100 MG PO (09:31)
[2024-07-04] MEDS: PROTONIX 40 MG PO (09:31)
[2024-07-04] MEDS: FLUSH (NSS) 2 FLUSH IV ×2 (09:32→16:15)
[2024-07-04] MEDS: NSS IV (11:21)
[2024-07-04 11:37] LABS: Glucose - Point of Care 146 mg/dl (70-99)
--- NOTE | 2024-07-04 15:37 | CHAP ---
Mr. Voss shared that it's been a long haul - but he looks forward to finally getting back home and back to [place]. He welcomed prayer. Emotional and spiritual support provided.
--- NOTE | 2024-07-04 21:14 | PTCARENOTE ---
Received patient at change of shift. Patient A&Ox3. Vitals stable. Sternum site SHANK BONER. Right upper thigh and femoral site SHANK BONER and ecchymotic. Cordis site clean, dry, and intact. Chest tube sites clean, dry, and intact. Discussed plan of care for
evening. Patient verbalized understanding. Call anglin within reach.
[2024-07-04] MEDS: KLONOPIN 3 MG PO (21:49)
[2024-07-04] MEDS: LIPITOR 80 MG PO (21:49)
[2024-07-04 22:04] LABS: Glucose - Point of Care 113 mg/dl (70-99)
--- NOTE | 2024-07-05 00:44 | W.PN.CT ---
Today's Communication / Plan
-
Plan:
-No major issues overnight. Hemodynamically and neurologically intact
-Switched Lopressor to home dose Coreg 6.25 mg BID given hypertension
-Cont. diuresis, may need Diamox today. Fluid restriction
-Monitor hyponatremia, 127, was 127 yesterday. May need Nephrology consult and administration of Samsca
-Monitor u/o
-Encourage use of IS
-OOB into chair/Ambulate
-Home later today vs tomorrow
Assessment / Plan
-
-mv CAD - s/p CABG x 4 (In situ SEVILLA to LAD, Ao to left radial artery to ramus sequential to OM, Ao to RSVG to RPDA); Left atrial appendage exclusion [40 mm clip] by Dr. Naylor on 06/30/24, pod #5
-Intraop MIKHAIL: LVEF preop was 60% with no significant regional wall motion abnormalities. Following surgery his EF remained the same and slightly hyperdynamic until volume was given back to him. His EF was probably 65 to 70% during which time he
had mild dynamic systolic anterior motion of the leaflets with mild to moderate mitral valve insufficiency. Afterload was increased and volume was given, this resolved the mitral valve insufficiency to trace with no SAUMYA recurring. His left atrial
appendage was verified to be free of any thrombus or debris preoperatively and found to be totally occlusive postoperatively with a 40 mm device applied flush to the base.
-brief period of VVI pacing while he was junctional at which point he regained a sinus rhythm.
-Multivessel CAD, transferred from [facility] for CABG evaluation
-NSTEMI
-Plavix washout, last dose 06/22
-CAD s/p LA 1998
-PCI w/ stent to LAD 1998
-S/P PCI with stent to RCA 1999
-S/P PCI with stent to OM 2002
-S/P PCI with FLAKO to LAD/Diag 2017
-HTN/HLD
-NIDDMII, on metformin
-Depression
-Anxiety
-BOWEN, Liver dz
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
-Former cigarette smoker (quit abusing street drugs 12 years ago
-Former illicit drug use (nasal crack cocaine, nasal mask, nasal speed)
-Prior alcohol abuse
-History of cervical and lumbar laminectomy
-S/p Cervical and lumbar laminectomy and fusion
-S/P Left lower lobectomy (benign tumor)
-Acute postop blood loss anemia - stable, no acute bleed, no transfusion
-Acute postop atelectasis/left pleural effusion
-Acute postop hypovolemia with subsequent hypervolemia
-Suspected acute postop pericarditis on ECG/+ rub
-Acute postop hyponatremia
Discussed patient care with: Cardiology, Nursing, Respiratory Therapy, Pharmacy and Care Team
Subjective
Procedure
CABG x 4 SEVILLA-LAD, Radial- RI & OM, SVG-RPDA by Dr. Santy Naylor 06/30/24-pod#2
- c/o incisional pain with deep breaths
- straight cath for 650cc urine around 1930, started on Flomax
-
Date of Service: July 05, 2024
Pt c/o mild incisional pain, otherwise feels well
Objective Data
-
Lab Results
07/04/24 05:29
PT 16.5 Sec (11.4-14.6) H 06/30/24 12:21
INR 1.30 06/30/24 12:21
APTT 33.4 Sec (23.4-35.0) 06/30/24 12:21
Vital Signs
Vital Signs
Temp Pulse Resp BP Pulse Ox
98.3 F 77 20 143/80 94
07/04/24 22:52 07/04/24 23:00 07/04/24 19:33 07/04/24 21:48 07/04/24 22:37
CT Intake/Output/Weight
07/04/24 07/04/24 07/05/24
06:59 18:59 06:59
Intake Total 1200 / 1200
Balance 1200 / 1200
SaO2: 94 (RA)
Physical Exam
-
General: Awake, Oriented and AOx3
Cardiovascular: Regular rate & rhythm, No Murmurs, No Rub and No Gallop
Respiratory: Decreased Breath Sounds (at bases, otherwise clear)
Sternum: Stable
Incision: Clean, Dry, Intact and Dressing Intact
Extremities: Other (+trace edema)
Data Reviewed
-
Lab Results: Results Reviewed
Medications: Active Meds Reviewed
Chest X-Ray: Report Reviewed and Image Reviewed
ECG: Report Reviewed and Image Reviewed
[2024-07-05 04:55] VITALS: BP 154/81
[2024-07-05 05:52] LABS: Blood Urea Nitrogen 24 mg/dl (9-20); Calcium 8.8 mg/dl (8.4-10.2); Carbon Dioxide 31 mmol/L (22-30); Chloride 89 mmol/L (98-107); Estimated Creatinine Clearance 109 ml/min; Glucose 117 mg/dl (70-99); Magnesium 2.4 mg/dl (1.6-2.3); Potassium 3.9 mmol/L (3.5-5.1); Sodium 127 mmol/L (135-145); eGFR > 60.00
[2024-07-05 07:00] VITALS: BP 131/96
[2024-07-05 07:25] LABS: Glucose - Point of Care 110 mg/dl (70-99)
[2024-07-05 07:29] VITALS: BMI 29.5
[2024-07-05] MEDS: SENOKOT-S 1 TABLET PO (07:29)
[2024-07-05] MEDS: TYLENOL 1000 MG PO ×2 (07:29→13:29)
[2024-07-05] MEDS: FARXIGA 10 MG PO (07:30)
[2024-07-05] MEDS: NEURONTIN 300 MG PO (07:30)
[2024-07-05] MEDS: ZETIA 10 MG PO (07:30)
[2024-07-05] MEDS: CYMBALTA DELAYED RELEASE 60 MG PO (07:30)
[2024-07-05] MEDS: PROTONIX 40 MG PO (07:30)
[2024-07-05] MEDS: LOW STRENGTH ASPIRIN 81 MG PO (07:30)
[2024-07-05] MEDS: GLUCOPHAGE 500 MG PO (07:30)
[2024-07-05] MEDS: LIDOCAINE 4% PATCH TOPICAL (07:33)
[2024-07-05] MEDS: MIRALAX 17 GRAMS PO (07:33)
[2024-07-05] MEDS: LASIX 40 MG IV (07:33)
[2024-07-05 07:36] VITALS: BP 127/75
[2024-07-05] MEDS: COZAAR 100 MG PO (07:37)
[2024-07-05] MEDS: NORVASC 5 MG PO (07:37)
[2024-07-05] MEDS: COREG 6.25 MG PO (07:37)
[2024-07-05] MEDS: PLAVIX 75 MG PO (07:37)
[2024-07-05] MEDS: PACERONE 200 MG PO (07:37)
[2024-07-05] MEDS: NOVOLOG FLEXPEN-MODERATE RESISTANCE SC ×2 (07:38→11:36)
[2024-07-05] MEDS: NSS IV (07:43)
[2024-07-05] MEDS: DIAMOX 250 MG PO (07:47)
[2024-07-05 11:31] VITALS: BP 144/72
[2024-07-05 11:35] LABS: Glucose - Point of Care 123 mg/dl (70-99)
[2024-07-05 11:43] LABS: Blood Urea Nitrogen 23 mg/dl (9-20); Calcium 8.8 mg/dl (8.4-10.2); Carbon Dioxide 28 mmol/L (22-30); Chloride 88 mmol/L (98-107); Estimated Creatinine Clearance 95 ml/min; Glucose 130 mg/dl (70-99); Potassium 3.6 mmol/L (3.5-5.1); Sodium 128 mmol/L (135-145); eGFR > 60.00
--- NOTE | 2024-07-05 11:52 | W.DCSUMMARY ---
Discharge Summary
Discharge Data
Date of Admission: 06/22/24
Date of Discharge: 07/05/24
-
Pending Results: No
Hospital Course
Primary care physician: Laura Bernal
Outpatient naphthalene still operator: Cooper Jiang
Inpatient consultants: [facility] Cardiology, pulmonary pharmaceutical sales representative, diabetes BUSINESS TEACHER
Procedures:
1. CABG and left atrial appendage clip
Primary Diagnosis:
1. NSTEMI/three-vessel coronary disease
Secondary Diagnoses:
1. History of LAD stent in 1998, RCA stent 1999, OM stent 2002, LAD/diagonal stent 2017, LAD stent 2022
2. Hypertension
3. Hyperlipidemia
4. Type 2 diabetes (A1C 6.1)
5. Bipolar disorder
6. BOWEN
7. Carcinoid tumor of the left lung status post left lower lobe lobectomy
8. History of polysubstance abuse
9. History of cervical and lumbar laminectomy
10. Moderate obstructive lung disease
11. Postop pericarditis
12. Acute postop blood loss anemia�mild (expected)
13. Acute postoperative urinary retention�straight cath x 1
14. Postop small left pleural effusion
15. Postop left lung subsegmental atelectasis
HPI: 64 year old male with extensive coronary history noted above, began experiencing atypical left-sided chest pain at rest on 06/18/2024 with associated dyspnea upon exertion. Patient was admitted to [facility] emergency room and ruled in for
NSTEMI. Left heart catheterization reported triple-vessel coronary disease and patient was transferred to [facility] on 06/22/2024 on IV heparin and nitroglycerin for CABG evaluation.
Hospital course: Last dose of chronic Plavix was 06/22/2024. On 06/30/2024, patient underwent CABG x 4 with SEVILLA to LAD, radial to ramus and OM, SVG to RPDA, and left atrial appendage #[address] Santy Naylor. He received no intraoperative
blood products and returned to CVICU on Levophed, Cardizem, insulin, and Precedex. Patient is extubated at 5 PM the day of surgery. On postoperative day #1, intravenous Cardizem was changed to oral Norvasc. Patient was declined and left pleural
chest tube removed. The bladder catheter was removed and patient required straight cath x 1 for urinary retention. Subsequently urinated without difficulty. On postoperative day #2, temporary pacing wires and mediastinal chest tubes were removed.
Insulin infusion was discontinued and patient was evaluated by the diabetic nurse practitioner. Metformin was continued and patient started on Farxiga. On postoperative day #3, metoprolol dose was increased to 50 mg twice daily for sinus
tachycardia and hypertension. Patient was diuresed with 40 mg of IV Lasix. On postoperative day #4, right IJ cordis was removed and patient again diuresed with 40 mg of IV Lasix twice daily. Sodium was low at 127. Fluid restriction was
implemented. On postoperative day 5, sodium was again noted to be 127. CO2 was 31 and patient was diuresed with Diamox 250 mg. The blood pressure remained mildly elevated, and Norvasc was changed to home dose of Cardizem 300 mg daily for
discharge. Repeat BMP reported slight improvement of sodium to 128. Per discussion with surgeon, patient was deemed stable for discharge to home. Follow-up BMP will be obtained in 1 week. Transitional nurses notified.
Home medication changes:
Home gabapentin of 100 mg daily was increased to 300 mg daily for short-term pain control on discharge
Discharge Plan
-
Patient Disposition: Home (Routine Discharge)
Discharge Diagnosis/Procedures: NSTEMI s/p CABG x 4 with radial artery and left atrial appendage clip
Condition: Good
Diet: Low Cholesterol, Low Sodium and Diabetic, Carb Controlled
Activity: No strenuous activity
Driving Restrictions: Not until seen by your Dr
Bathing Restrictions: OK to Shower
Other Services: Cardiac Rehab
Activity Restrictions/Additional Instructions:
Please call to make appointments for Phase II Cardiac Rehab:
[facility] [address]:
[phone]
Referrals:
CT Transitional Care Nurse [Outside] - in one to two days
(
The Cardiothoracic Transitional Care Nurse will call you to set up a visit in 1-2 days.)
Giacomo Hanley MD [Active] - in four to six weeks
()
Cooper Jiang DO [Active] - 08/18/24 12:40 pm
Santy Naylor MD [Active] - 08/03/24 2:15 pm
UNKNOWN - PT DOES,NOT KNOW [Family Provider] -
Prescriptions:
New
gabapentin 300 mg Capsule
300 mg PO DAILY Qty: 30 0RF
acetaminophen 325 mg Tablet
650 mg PO Q4HPRN PRN (Reason: mild pain,headache,temp >101F ) Qty: 0 0RF
cyclobenzaprine 10 mg Tablet
5 mg PO Q8HPRN PRN (Reason: muscle spasm) Qty: 10 0RF
dapagliflozin propanediol 10 mg Tablet
10 mg PO DAILY Qty: 30 1RF
Continued
metformin 500 mg Tablet
500 mg PO BID
carvedilol 6.25 mg Tablet
6.25 mg PO Q12H
aspirin 81 mg Tablet
81 mg PO DAILY
losartan 100 mg Tablet
100 mg PO DAILY
diltiazem HCl 300 mg Tablet Extended Release 24 Hr
300 mg PO DAILY
Ozempic 1 mg/dose (2 mg/1.5 mL) Pen Injector
1 mg SC QWEEK
atorvastatin 80 mg Tablet
80 mg PO DAILY Qty: 0 0RF
clonazepam 1 mg Tablet
3 mg PO DAILY Qty: 0 0RF
clopidogrel 75 mg Tablet
75 mg PO DAILY Qty: 0 0RF
duloxetine [Cymbalta] 60 mg Capsule,Delayed Release(Dr/Ec)
60 mg PO DAILY Qty: 0 0RF
ezetimibe [Zetia] 10 mg Tablet
10 mg PO DAILY Qty: 0 0RF
pantoprazole 40 mg Tablet,Delayed Release (Dr/Ec)
40 mg PO DAILY Qty: 0 0RF
cholecalciferol (vitamin D3) [Vitamin D3] 50 mcg (2,000 unit) Capsule
50 mcg PO DAILY Qty: 0 0RF
multivitamin Tablet
1 tab PO DAILY Qty: 0 0RF
ascorbic acid (vitamin C) [Vitamin C] 500 mg Tablet
500 mg PO BID Qty: 0 0RF
Held
gabapentin 100 mg Capsule
100 mg PO HS
Hold Instructions: Resume on 08/03/24.
resume 08/03 after completing higher dose of gabapentin
Discontinued
turmeric 1,000 mg tablet
See Rx Instructions .ROUTE .COMPLEX
Rx Instructions:
Patient states he takes 1000mg turmeric daily
Care Plan Goals
Care Plan Goals:
Problem: Readiness for enhanced knowledge related to diagnosis and treatment plan
Goal: Understand your diagnosis and treatment plan needs, including medications if applicable.
Instructions: Know your diagnosis, underlying causes and treatment plan options, including medications if applicable. Consult with your health care team to learn about your diagnosis and treatment plan, including medications if applicable.
Discharge Date and Time
Print Language: KISWAHILI
[2024-07-05] MEDS: CARDIZEM CD 300 MG PO (13:28)
[2024-07-05 13:29] VITALS: BP 116/78
[2024-07-05 14:40] VITALS: BP 123/77
--- NOTE | 2024-07-05 14:50 | PTCARENOTE ---
07/05/24 Received discharge order for patient. Reviewed discharge instructions with patient and . Reviewed medications, follow-up appointments, BMP in a week, reviewed sternal precautions, shower instructions and no driving till seen by
[facility]-Surgeon. Pt and verbalized understanding- all questions were answered and support given.
== END 2024-07-05 14:53 | disposition home or self-care (01) | DRG 236 ==
LOC: IVU 17:01
PROVIDERS: Anesthesiology; Clinical Nurse Specialist Acute Care; Nurse Practitioner; Physician Assistant Surgical; ADMITTING PHYSICIAN Thoracic Surgery (Cardiothoracic Vascular Surgery); CONSULT PHYSICIAN Internal Medicine Cardiovascular Disease; CONSULT PHYSICIAN Internal Medicine Critical Care Medicine
PROC: 02L70CK Occlusion of Left Atrial Appendage with Extraluminal Device, Open Approach (ICD-10-PCS; 2024-06-30)
PROC: B24BZZ4 Ultrasonography of Heart with Aorta, Transesophageal (ICD-10-PCS; 2024-06-30)
PROC: 02100AW Bypass Coronary Artery, One Artery from Aorta with Autologous Arterial Tissue, Open Approach (ICD-10-PCS; 2024-06-30)
PROC: 03BC4ZZ Excision of Left Radial Artery, Percutaneous Endoscopic Approach (ICD-10-PCS; 2024-06-30)
PROC: 02100Z9 Bypass Coronary Artery, One Artery from Left Internal Mammary, Open Approach (ICD-10-PCS; 2024-06-30)
PROC: 06BP4ZZ Excision of Right Saphenous Vein, Percutaneous Endoscopic Approach (ICD-10-PCS; 2024-06-30)
PROC: 5A1221Z Performance of Cardiac Output, Continuous (ICD-10-PCS; 2024-06-30)
PROC: 021109W Bypass Coronary Artery, Two Arteries from Aorta with Autologous Venous Tissue, Open Approach (ICD-10-PCS; 2024-06-30)
DX: I21.4 Non-ST elevation (NSTEMI) myocardial infarction (principal); E87.1 Hypo-osmolality and hyponatremia; D62 Acute posthemorrhagic anemia; J98.11 Atelectasis; J90 Pleural effusion, not elsewhere classified; I30.9 Acute pericarditis, unspecified; I25.10 Atherosclerotic heart disease of native coronary artery without angina pectoris; I10 Essential (primary) hypertension; E78.00 Pure hypercholesterolemia, unspecified; F41.9 Anxiety disorder, unspecified; K75.81 Nonalcoholic steatohepatitis (NASH); E66.9 Obesity, unspecified; F31.9 Bipolar disorder, unspecified; I44.0 Atrioventricular block, first degree; J98.4 Other disorders of lung; E11.65 Type 2 diabetes mellitus with hyperglycemia; I25.2 Old myocardial infarction; J44.9 Chronic obstructive pulmonary disease, unspecified; E86.1 Hypovolemia; E87.70 Fluid overload, unspecified; R33.9 Retention of urine, unspecified; Z68.29 Body mass index [BMI] 29.0-29.9, adult; Z79.02 Long term (current) use of antithrombotics/antiplatelets; Z79.82 Long term (current) use of aspirin; Z79.84 Long term (current) use of oral hypoglycemic drugs; Z79.899 Other long term (current) drug therapy; Z82.49 Family history of ischemic heart disease and other diseases of the circulatory system; Z87.891 Personal history of nicotine dependence; Z90.2 Acquired absence of lung [part of]; Z95.5 Presence of coronary angioplasty implant and graft
CPT/HCPCS: 94727; 94729; 71045; 71046; 71250; 80048; 80053; 80061; 80306; 81003; 81015; 82330; 82565; 82728; 82805; 82947; 82962; 83036; 83540; 83735; 84132; 84302; 84520; 85014; 85018; 85025; 85027; 85049; 85610; 85730; 86850; 86900; 86901; 86920; 87070; 93005; 93312; 93320; 93325; 93880; 93923; 93931; 94002; 94060; 94640; C1713